=== PATIENT | male | born 1950 | race Asian ===

== ENCOUNTER 2020-01-18 12:03 | Outpatient (REF) | payer MEDICARE, OTHER, SELFPAY ==
[2020-01-18 13:16] LABS: Alanine Aminotransferase 19 U/L (0-40); Albumin Level 4.1 g/dL (3.5-5.0); Alkaline Phosphatase 75 U/L (39-117); Anion Gap 13 (12-20); Aspartate Amino Transferase 30 U/L (5-37); Bilirubin Total 0.8 mg/dL (0.0-1.0); Blood Urea Nitrogen 13 mg/dL (9-16); Carbon Dioxide 25 mmol/L (22-29); Chloride 106 mmol/L (96-108); Estimated Glomerular Filt Rate > 60; Glucose Random 127 mg/dL (60-115); Potassium 3.8 mmol/l (3.3-5.1); Sodium 140 mmol/L (135-145); Total Protein 6.9 g/dL (6.5-8.0)
== END 2020-01-18 12:04 | disposition home or self-care (01) ==
LOC: HO.LAB 12:03
PROVIDERS: PCP Internal Medicine; Visit Provider Internal Medicine
DX: N28.9 Disorder of kidney and ureter, unspecified (principal)
CPT/HCPCS: 80053

== ENCOUNTER 2020-03-25 07:12 | Outpatient (REF) | payer MEDICARE, OTHER, SELFPAY ==
[2020-03-25 08:01] LABS: MANUAL DIFF FLAG NO
[2020-03-25 08:03] LABS: Basophils Percent Auto 0.4 % (0-2); Eosinophils Absolute Auto 0.3 X10*3/uL (0.0-0.4); Eosinophils Percent Auto 4.9 % (0-4); Hematocrit 44.7 % (42-52); Hemoglobin 14.9 g/dl (14.0-18.0); Imm Gran Abs Auto 0.02 X10*3/uL (0.00-0.03); Imm Gran Pct Auto 0.3 % (0.0-0.4); Lymphocytes Absolute Auto 2.2 X10*3/uL (1.2-4.9); Lymphocytes Percent Auto 31.7 % (20-40); Mean Corpuscular HGB Conc 33.3 g/dl (31.0-36.0); Mean Corpuscular Hemoglobin 28.6 pg (27.0-33.0); Mean Corpuscular Volume 85.8 fL (80-98); Mean Platelet Volume 9.7 fL (9.4-12.4); Monocytes Absolute Auto 0.5 X10*3/uL (0.1-1.2); Monocytes Percent Auto 7.1 % (2-11); Neutrophils Absolute Auto 3.8 X10*3/uL (2.0-8.3); Neutrophils Percent Auto 55.6 % (45-73); Platelet Count 297 X10*3/uL (160-400); Red Blood Count 5.21 X10*6/uL (4.60-5.80); Red Cell Distribution Width 12.9 % (11.0-16.0); White Blood Count 6.8 X10*3/uL (4.8-10.8)
[2020-03-25 08:26] LABS: Alanine Aminotransferase 18 U/L (0-40); Albumin Level 4.2 g/dL (3.5-5.0); Alkaline Phosphatase 70 U/L (39-117); Anion Gap 14 (12-20); Aspartate Amino Transferase 25 U/L (5-37); Bilirubin Total 0.5 mg/dL (0.0-1.0); Blood Urea Nitrogen 11 mg/dL (9-16); Calcium 9.6 mg/dL (8.4-10.2); Carbon Dioxide 25 mmol/L (22-29); Chloride 108 mmol/L (96-108); Cholesterol 188 mg/dL; Estimated Glomerular Filt Rate > 60; Glucose Fasting 100 mg/dL (60-99); HDL Cholesterol 51 mg/dL; LDL Cholesterol Calculated 107 mg/dl; Potassium 4.3 mmol/l (3.3-5.1); Sodium 143 mmol/L (135-145); Total Protein 6.9 g/dL (6.5-8.0); Triglycerides 153 mg/dL
== END 2020-03-25 07:13 | disposition home or self-care (01) ==
LOC: HO.LAB 07:12
PROVIDERS: PCP Internal Medicine; Visit Provider Internal Medicine
DX: I10 Essential (primary) hypertension (principal); N28.9 Disorder of kidney and ureter, unspecified; E78.5 Hyperlipidemia, unspecified; K21.9 Gastro-esophageal reflux disease without esophagitis; E55.9 Vitamin D deficiency, unspecified
CPT/HCPCS: 36415; 80053; 80061; 82306; 85025

== ENCOUNTER 2020-06-01 12:06 | Outpatient (REF) | payer MEDICARE, SELFPAY ==
[2020-06-01 13:04] LABS: MANUAL DIFF FLAG NO
[2020-06-01 13:09] LABS: Basophils Percent Auto 0.4 % (0-2); Eosinophils Absolute Auto 0.4 X10*3/uL (0.0-0.4); Eosinophils Percent Auto 4.9 % (0-4); Hematocrit 44.3 % (42-52); Hemoglobin 14.8 g/dl (14.0-18.0); Imm Gran Abs Auto 0.03 X10*3/uL (0.00-0.03); Imm Gran Pct Auto 0.4 % (0.0-0.4); Lymphocytes Absolute Auto 2.1 X10*3/uL (1.2-4.9); Lymphocytes Percent Auto 29.4 % (20-40); Mean Corpuscular HGB Conc 33.4 g/dl (31.0-36.0); Mean Corpuscular Hemoglobin 28.7 pg (27.0-33.0); Mean Platelet Volume 9.9 fL (9.4-12.4); Monocytes Absolute Auto 0.5 X10*3/uL (0.1-1.2); Monocytes Percent Auto 6.6 % (2-11); Neutrophils Absolute Auto 4.1 X10*3/uL (2.0-8.3); Neutrophils Percent Auto 58.3 % (45-73); Platelet Count 280 X10*3/uL (160-400); Red Blood Count 5.15 X10*6/uL (4.60-5.80); Red Cell Distribution Width 12.2 % (11.0-16.0); White Blood Count 7.1 X10*3/uL (4.8-10.8)
[2020-06-01 13:34] LABS: Alanine Aminotransferase 20 U/L (0-40); Albumin Level 3.9 g/dL (3.5-5.0); Alkaline Phosphatase 79 U/L (39-117); Anion Gap 12 (12-20); Aspartate Amino Transferase 28 U/L (5-37); Bilirubin Total 0.7 mg/dL (0.0-1.0); Blood Urea Nitrogen 14 mg/dL (9-16); Calcium 8.5 mg/dL (8.4-10.2); Carbon Dioxide 25 mmol/L (22-29); Chloride 107 mmol/L (96-108); Cholesterol 161 mg/dL; Estimated Glomerular Filt Rate > 60; Glucose Fasting 144 mg/dL (60-99); HDL Cholesterol 47 mg/dL; LDL Cholesterol Calculated 68 mg/dl; Potassium 3.9 mmol/L (3.3-5.1); Sodium 140 mmol/L (135-145); Total Protein 6.5 g/dL (6.5-8.0); Triglycerides 232 mg/dL
[2020-06-01 13:53] LABS: PSA,Total (Free>4and<10) 1.55 ng/mL (0.00-4.00)
== END 2020-06-01 12:07 | disposition home or self-care (01) ==
LOC: HO.LAB 12:06
PROVIDERS: Nurse Practitioner Family; PCP Internal Medicine; Visit Provider Urology
DX: Z00.00 Encounter for general adult medical examination without abnormal findings (principal); N40.1 Benign prostatic hyperplasia with lower urinary tract symptoms; Z12.5 Encounter for screening for malignant neoplasm of prostate
CPT/HCPCS: 36415; 80053; 80061; 84153; 85025

== ENCOUNTER → 2020-06-08 12:50 | Outpatient (BNVA) | payer MEDICARE, OTHER, SELFPAY | PROVIDERS: Visit Provider Urology | DX: Z13.89 Encounter for screening for other disorder (principal) | CPT/HCPCS: 99212 ==

== ENCOUNTER 2020-07-14 07:00 | Outpatient (REF) | payer MEDICARE, OTHER, SELFPAY ==
[2020-07-14 08:03] LABS: MANUAL DIFF FLAG NO
[2020-07-14 08:23] LABS: Basophils Percent Auto 0.5 % (0-2); Eosinophils Absolute Auto 0.4 X10*3/uL (0.0-0.4); Eosinophils Percent Auto 5.2 % (0-4); Hematocrit 48.8 % (42-52); Imm Gran Abs Auto 0.03 X10*3/uL (0.00-0.03); Imm Gran Pct Auto 0.4 % (0.0-0.4); Lymphocytes Absolute Auto 2.6 X10*3/uL (1.2-4.9); Mean Corpuscular HGB Conc 32.8 g/dl (31.0-36.0); Mean Corpuscular Hemoglobin 28.3 pg (27.0-33.0); Mean Corpuscular Volume 86.2 fL (80-98); Mean Platelet Volume 9.9 fL (9.4-12.4); Monocytes Absolute Auto 0.5 X10*3/uL (0.1-1.2); Monocytes Percent Auto 6.8 % (2-11); Neutrophils Percent Auto 53.1 % (45-73); Platelet Count 301 X10*3/uL (160-400); Red Blood Count 5.66 X10*6/uL (4.60-5.80); Red Cell Distribution Width 12.6 % (11.0-16.0); White Blood Count 7.5 X10*3/uL (4.8-10.8)
[2020-07-14 08:34] LABS: Alanine Aminotransferase 25 U/L (0-40); Albumin Level 4.4 g/dL (3.5-5.0); Alkaline Phosphatase 99 U/L (39-117); Anion Gap 15 (12-20); Aspartate Amino Transferase 34 U/L (5-37); Bilirubin Total 0.9 mg/dL (0.0-1.0); Blood Urea Nitrogen 13 mg/dL (9-16); Calcium 10.2 mg/dL (8.4-10.2); Carbon Dioxide 24 mmol/L (22-29); Chloride 104 mmol/L (96-108); Cholesterol 190 mg/dL; Estimated Glomerular Filt Rate > 60; Glucose Fasting 104 mg/dL (60-99); HDL Cholesterol 54 mg/dL; LDL Cholesterol Calculated 96 mg/dl; Potassium 4.4 mmol/L (3.3-5.1); Sodium 139 mmol/L (135-145); Total Protein 7.4 g/dL (6.5-8.0); Triglycerides 204 mg/dL
[2020-07-14 08:43] LABS: Glucose Urine UA NEG (NEG); Leukocyte Esterase Urine NEG (NEG); Nitrite Urine NEG (NEG); PH 5.5 (5.0-8.0); Specific Gravity - Urine 1.025 (1.005-1.025); Urine Blood NEG (NEG); Urine Ketones NEG (NEG); Urine Protein NEG (NEG-TRACE)
[2020-07-14 08:44] LABS: Appearance Urine CLEAR; Color Urine YELLOW
[2020-07-14 08:54] LABS: Prostate Specific Antigen Scr 1.21 ng/mL (<0.05-4.0)
[2020-07-14 08:55] LABS: Vitamin D 25-OH Total 33.4 ng/mL (>30)
== END 2020-07-14 07:01 | disposition home or self-care (01) ==
LOC: HO.LAB 07:00
PROVIDERS: Nurse Practitioner Family; PCP Internal Medicine; Visit Provider Internal Medicine
DX: Z00.00 Encounter for general adult medical examination without abnormal findings (principal); Z12.5 Encounter for screening for malignant neoplasm of prostate; L29.9 Pruritus, unspecified; K21.9 Gastro-esophageal reflux disease without esophagitis; E55.9 Vitamin D deficiency, unspecified; E78.2 Mixed hyperlipidemia; N28.9 Disorder of kidney and ureter, unspecified; I10 Essential (primary) hypertension
CPT/HCPCS: 36415; 80053; 80061; 81003; 82306; 84153; 85025

== ENCOUNTER 2020-11-14 06:57 | Outpatient (REF) | payer MEDICARE, OTHER, SELFPAY ==
[2020-11-14 07:43] LABS: MANUAL DIFF FLAG NO
[2020-11-14 07:50] LABS: Basophils Percent Auto 0.4 % (0-2); Eosinophils Absolute Auto 0.4 X10*3/uL (0.0-0.4); Eosinophils Percent Auto 5.6 % (0-4); Hematocrit 47.8 % (42-52); Imm Gran Abs Auto 0.02 X10*3/uL (0.00-0.03); Imm Gran Pct Auto 0.3 % (0.0-0.4); Lymphocytes Absolute Auto 2.6 X10*3/uL (1.2-4.9); Lymphocytes Percent Auto 34.1 % (20-40); Mean Corpuscular HGB Conc 33.5 g/dl (31.0-36.0); Mean Corpuscular Hemoglobin 27.8 pg (27.0-33.0); Mean Corpuscular Volume 83.1 fL (80-98); Mean Platelet Volume 9.7 fL (9.4-12.4); Monocytes Absolute Auto 0.5 X10*3/uL (0.1-1.2); Monocytes Percent Auto 6.8 % (2-11); Neutrophils Percent Auto 52.8 % (45-73); Platelet Count 304 X10*3/uL (160-400); Red Blood Count 5.75 X10*6/uL (4.60-5.80); Red Cell Distribution Width 13.3 % (11.0-16.0); White Blood Count 7.5 X10*3/uL (4.8-10.8)
[2020-11-14 08:23] LABS: Alanine Aminotransferase 33 U/L (0-40); Albumin Level 4.2 g/dL (3.5-5.0); Alkaline Phosphatase 103 U/L (39-117); Anion Gap 15 (12-20); Aspartate Amino Transferase 43 U/L (5-37); Bilirubin Total 0.7 mg/dL (0.0-1.0); Blood Urea Nitrogen 13 mg/dL (9-16); Calcium 10.2 mg/dL (8.4-10.2); Carbon Dioxide 22 mmol/L (22-29); Chloride 108 mmol/L (96-108); Cholesterol 158 mg/dL; Estimated Glomerular Filt Rate > 60; Glucose Fasting 104 mg/dL (60-99); HDL Cholesterol 42 mg/dL; LDL Cholesterol Calculated 78 mg/dl; Potassium 4.3 mmol/L (3.3-5.1); Sodium 141 mmol/L (135-145); Total Protein 7.1 g/dL (6.5-8.0); Triglycerides 190 mg/dL
[2020-11-14 08:37] LABS: TSH reflex Free T4 1.89 uIU/mL (0.32-4.0)
[2020-11-14 08:48] LABS: Glucose Urine UA NEG (NEG); Leukocyte Esterase Urine NEG (NEG); Nitrite Urine NEG (NEG); PH 5.5 (5.0-8.0); Specific Gravity - Urine >= 1.030 (1.005-1.025); Urine Blood NEG (NEG); Urine Ketones NEG (NEG); Urine Protein NEG (NEG-TRACE)
[2020-11-14 08:50] LABS: Appearance Urine CLEAR; Color Urine YELLOW
== END 2020-11-14 06:58 | disposition home or self-care (01) ==
LOC: HO.LAB 06:57
PROVIDERS: PCP Internal Medicine; Visit Provider Internal Medicine
DX: E78.2 Mixed hyperlipidemia (principal); I10 Essential (primary) hypertension; K21.9 Gastro-esophageal reflux disease without esophagitis; E78.00 Pure hypercholesterolemia, unspecified
CPT/HCPCS: 36415; 80053; 80061; 81003; 84443; 85025

== ENCOUNTER 2020-12-04 06:05 | Day surgery (SDC) | payer MEDICARE, OTHER, SELFPAY ==
[2020-11-29 15:13] VITALS: BMI 24.6
--- NOTE | 2020-12-01 09:23 | HO.ANESPROP2 ---
Documented by User: Cindy Cm NP 12/01/20 09:24 HPI - Anesthesia Eval Consult details Narrative: 70yo M for Colonoscopy PMFSH Active Problems Active Problems: All Active Problems (Updated 11/29/20 @ 15:16 by Beryl Fox, ALIZA) Bilateral nephrolithiasis (Acute) Screening for colon cancer (Acute) Annual physical exam (Acute) Recurrent cold sores (Acute) Renal insufficiency (Acute) Osteoarthritis of cervical spine (Acute) Primary osteoarthritis of right shoulder (Acute) Generalized pruritus (Acute) GERD without esophagitis (Acute) Vitamin D deficiency (Acute) Mixed hyperlipidemia (Acute) Benign essential hypertension (Acute) Past Medical History Medical History Annual physical exam Benign essential hypertension COVID-19 vaccine series completed Generalized pruritus GERD without esophagitis Mixed hyperlipidemia Osteoarthritis of cervical spine Primary osteoarthritis of right shoulder Recurrent cold sores Renal insufficiency Screening for colon cancer Vitamin D deficiency Family History Family History Father Hypertension Mother Hypertension CVD (cardiovascular disease) Brother No problems noted. Sister No problems noted. Son No problems noted. Surgical History Surgical History History of colonoscopy Hx of cystoscopy Hx of lithotripsy Social History Social History Alcohol intake: current Alcohol intake frequency: does not drink Patient Tobacco Use Status: Tobacco use Unknown Use of substances other than those prescribed or required for medical reasons: No Advance Directives Information Provided: No Meds Allergies Allergy/AdvReac Type Severity Reaction Status Date / Time prochlorperazine Allergy Intermediate loss of Verified 11/29/20 15:08 [From Compazine] control of tongue muscle (tongue twisted) Home Medications Medication Instructions Recorded Confirmed Last Taken Type atorvastatin 10 mg tablet 10 mg PO DAILY 04/04/20 11/29/20 Unknown History cholecalciferol (vitamin D3) 1,250 1,250 mcg PO QWEEK 04/04/20 11/29/20 Unknown History mcg (50,000 unit) capsule cyclobenzaprine 5 mg tablet 5 mg PO BID PRN tab 04/04/20 11/29/20 Unknown History tramadol 50 mg tablet 50 mg PO TID PRN 04/04/20 11/29/20 Unknown History Exam Exam Date and Time: December 01, 2020922 Height,Weight and Vital Signs: Height 5 ft 5 in Weight 67.132 kg Pertinent Lab Results Pertinent Lab Results: Laboratory Tests 11/14/20 11/14/20 07:10 07:10 WBC 7.5 Hgb 16.0 Hct 47.8 Plt Count 304 Sodium 141 Potassium 4.3 Chloride 108 Carbon Dioxide 22 BUN 13 Creatinine 1.20 Assessment and Plan Assessment Anesthesia Assessment: Chart Reviewed Documented by User: Griselda Bauer MD 12/04/20 07:07 [facility] Past Medical History Medical History Annual physical exam Benign essential hypertension COVID-19 vaccine series completed Generalized pruritus GERD without esophagitis Mixed hyperlipidemia Osteoarthritis of cervical spine Primary osteoarthritis of right shoulder Recurrent cold sores Renal insufficiency Screening for colon cancer Vitamin D deficiency Family History Family History Father Hypertension Mother Hypertension CVD (cardiovascular disease) Brother No problems noted. Sister No problems noted. Son No problems noted. Family history of problems with anesthesia: No Surgical History Surgical History History of colonoscopy Hx of cystoscopy Hx of lithotripsy History of Problems with Anesthesia: No Social History Social History Alcohol intake: current Alcohol intake frequency: does not drink Patient Tobacco Use Status: Tobacco use Unknown Use of substances other than those prescribed or required for medical reasons: No Advance Directives Information Provided: No Meds Allergies Allergy/AdvReac Type Severity Reaction Status Date / Time prochlorperazine Allergy Intermediate loss of Verified 11/29/20 15:08 [From Compazine] control of tongue muscle (tongue twisted) Home Medications Medication Instructions Recorded Confirmed Last Taken Type atorvastatin 10 mg tablet 10 mg PO DAILY 04/04/20 11/29/20 Unknown History cholecalciferol (vitamin D3) 1,250 1,250 mcg PO QWEEK 04/04/20 11/29/20 Unknown History mcg (50,000 unit) capsule cyclobenzaprine 5 mg tablet 5 mg PO BID PRN tab 04/04/20 11/29/20 Unknown History tramadol 50 mg tablet 50 mg PO TID PRN 04/04/20 11/29/20 Unknown History Exam Airway Mallampati Class: II TM Dist: >3cm Neck ROM: Full Assessment and Plan Assessment Anesthesia Assessment: Anesthesia Plan Discussed Final Anesthetic Review Family History of Problems with Anesthesia: No History of Problems with Anesthesia: No NPO: Yes ASA Class: II Final Preanesthetic Review: No Changes in Pt Med Stat, Meds/Allgs Chart Reviewed, Consent Obtained/Reviewed and Anes Risks/Benef Reviewed Patient Risk: Low Procedure Risk: Low Assessment/Block/Sedation in SS: Assess/Block/Sedation-SS Anesthetic Plan Anesthetic Plan: MAC: Disposition: Standard PACU
[2020-12-04 06:37] VITALS: BP 151/81; PULSE 64; RESP 16; TEMP 37.1; O2SAT 98
[2020-12-04] MEDS: Lactated Ringers 1,000 ML 100 ML IVCONT (06:42)
[2020-12-04 08:22] VITALS: BP 92/41; PULSE 62; RESP 12; TEMP 36.8; O2SAT 96
--- NOTE | 2020-12-04 08:22 | PM.OP ---
Brief Operative Note Date of Service: 12/04/20 Pre-op diagnosis: Screening Post-op diagnosis: other (Colon polyp) Procedure: Colonoscopy to the cecum and TI with snare polypectomy Surgeon: Jayden Hutchison Anesthesia: MAC Was an Weigh And Charge Worker used for this Procedure?: No Estimated blood loss (mL): 0 Pathology: other (A. Polyp at 40cm) Condition: stable Disposition: PACU
[2020-12-04 08:37] VITALS: BP 109/69; PULSE 63; RESP 14; O2SAT 96
--- NOTE | 2020-12-04 08:40 | OP_ITS ---
SURGEON: Jayden Hutchison MD INDICATIONS: The patient presents for evaluation of colorectal cancer screening. Full consent has been obtained from him for this, including risks of bleeding and perforation. PREOPERATIVE DIAGNOSIS: Colorectal cancer screening. POSTOPERATIVE DIAGNOSIS: PROCEDURE PERFORMED: Colonoscopy to cecum and terminal ileum with snare polypectomy. ESTIMATED BLOOD LOSS: COMPLICATIONS: ANESTHESIA: Monitored anesthesia care. ASSISTANTS: SPECIMENS: POSTOPERATIVE DIAGNOSES: Colorectal cancer screening, colon polyp, diverticulosis and internal hemorrhoids. DESCRIPTION OF PROCEDURE: The patient was placed in the left lateral decubitus position. The digital rectal exam revealed no abnormalities. The Olympus video pediatric colonoscope was entered into the rectum and advanced easily to the cecum. Once in the cecum, I did identify cecal pouch with appendiceal orifice. There were several diverticula in the cecal pouch. The terminal ileum was cannulated and appeared normal. The scope was withdrawn back in the colon. The ileocecal valve was somewhat large and lipomatous. It was quite soft when probed with a biopsy forceps and the overlying mucosa was normal. The scope was then slowly withdrawn assessing all mucosal surfaces carefully. Preparation was excellent. There was scattered diverticula in the ascending colon and a moderate amount of diverticulosis in the sigmoid colon. At 40 cm, was an approximately 10 mm slightly raised grossly adenomatous polyp, which was snared and recovered by suction. The polypectomy site appeared clean, without any sign of residual polyp nor bleeding. I did not visualize any other polyps, colitis, nor angiodysplasia. In the rectum, scope was retroflexed visualizing internal hemorrhoids, but no other pathology. The rectal mucosa appeared normal. The scope was straightened out and withdrawn from the patient. He tolerated the procedure well and was returned to the recovery area in stable condition. IMPRESSION: 1. Colon polyp, status post snare polypectomy. 2. Diverticulosis. 3. Lipomatous ileocecal valve. 4. Internal hemorrhoids. PLAN: The results of the pathology will be checked. Assuming this to be a tubular adenoma, I would recommend a followup colonoscopy in 5 years. He was advised not to use any aspirin, NSAIDs, nor fish oil for 1 week. He would otherwise see me on a p.r.n. basis. MD SYLVIA Mendoza/RAMY / [phone]
[2020-12-04 08:52] VITALS: BP 133/83; PULSE 66; RESP 18; TEMP 36.8; O2SAT 98
== END 2020-12-04 09:37 | disposition home or self-care (01) ==
PROVIDERS: PCP Internal Medicine; Visit Provider Internal Medicine
PROC: 0DJD8ZZ Inspection of Lower Intestinal Tract, Via Natural or Artificial Opening Endoscopic (ICD-10-PCS; CPT 45378; principal; 2020-12-04 07:30)
DX: Z12.11 Encounter for screening for malignant neoplasm of colon (principal); D12.5 Benign neoplasm of sigmoid colon; K57.30 Diverticulosis of large intestine without perforation or abscess without bleeding; K64.8 Other hemorrhoids; K21.9 Gastro-esophageal reflux disease without esophagitis; I10 Essential (primary) hypertension; Z87.11 Personal history of peptic ulcer disease; Z79.899 Other long term (current) drug therapy
CPT/HCPCS: 45385; 88305

== ENCOUNTER 2021-05-11 07:29 | Outpatient (REF) | payer MEDICARE, OTHER, SELFPAY ==
[2021-05-11 07:50] LABS: MANUAL DIFF FLAG NO
[2021-05-11 08:04] LABS: Basophils Absolute Auto 0.1 X10*3/uL (0.0-0.2); Basophils Percent Auto 0.7 % (0-2); Eosinophils Absolute Auto 0.5 X10*3/uL (0.0-0.4); Eosinophils Percent Auto 7.2 % (0-4); Hematocrit 46.3 % (42.0-52.0); Hemoglobin 15.3 g/dl (14.0-18.0); Imm Gran Abs Auto 0.03 X10*3/uL (0.00-0.03); Imm Gran Pct Auto 0.4 % (0.0-0.4); Lymphocytes Absolute Auto 2.9 X10*3/uL (1.2-4.9); Lymphocytes Percent Auto 40.5 % (20-40); Mean Corpuscular Hemoglobin 28.3 pg (27.0-33.0); Mean Corpuscular Volume 85.7 fL (80.0-98.0); Mean Platelet Volume 9.6 fL (9.4-12.4); Monocytes Absolute Auto 0.4 X10*3/uL (0.1-1.2); Monocytes Percent Auto 6.2 % (2-11); Neutrophils Absolute Auto 3.2 x10*3/uL (2.0-8.3); Platelet Count 276 X10*3/uL (160-400); Red Cell Distribution Width 12.8 % (11.0-16.0); White Blood Count 7.1 X10*3/uL (4.8-10.8)
[2021-05-11 08:24] LABS: Appearance Urine CLEAR; Color Urine YELLOW; Glucose Urine UA NEG (NEG); Leukocyte Esterase Urine NEG (NEG); Nitrite Urine NEG (NEG); PH 5.5 (5.0-8.0); Specific Gravity - Urine 1.025 (1.005-1.025); Urine Blood NEG (NEG); Urine Ketones NEG (NEG); Urine Protein NEG (NEG-TRACE)
[2021-05-11 08:31] LABS: Alanine Aminotransferase 19 U/L (0-40); Albumin Level 4.1 g/dL (3.5-5.0); Alkaline Phosphatase 75 U/L (39-117); Anion Gap 12 (12-20); Aspartate Amino Transferase 28 U/L (5-37); Bilirubin Total 0.6 mg/dL (0.0-1.0); Blood Urea Nitrogen 13 mg/dL (9-16); Calcium 9.9 mg/dL (8.4-10.2); Carbon Dioxide 26 mmol/L (22-29); Chloride 106 mmol/L (96-108); Cholesterol 207 mg/dL; Estimated Glomerular Filt Rate > 60; Glucose Fasting 104 mg/dL (60-99); HDL Cholesterol 52 mg/dL; LDL Cholesterol Calculated 125 mg/dl; Potassium 4.4 mmol/L (3.3-5.1); Sodium 140 mmol/L (135-145); Total Protein 6.9 g/dL (6.5-8.0); Triglycerides 152 mg/dL
[2021-05-11 08:53] LABS: TSH reflex Free T4 2.28 uIU/mL (0.32-4.0); Vitamin D 25-OH Total 34.1 ng/mL (>30)
== END 2021-05-11 07:30 | disposition home or self-care (01) ==
LOC: HO.LAB 07:29
PROVIDERS: PCP Internal Medicine; Visit Provider Internal Medicine
DX: I10 Essential (primary) hypertension (principal); E78.00 Pure hypercholesterolemia, unspecified; E55.9 Vitamin D deficiency, unspecified
CPT/HCPCS: 36415; 80053; 80061; 81003; 82306; 84443; 85025

== ENCOUNTER 2021-05-17 10:43 | Outpatient (REF) | payer MEDICARE, OTHER, SELFPAY ==
--- NOTE | ~2021-05-17 | XR_ITS ---
EXAMINATION: XR SHOULDER, LEFT CLINICAL INFORMATION: Left shoulder pain. COMPARISON: None TECHNIQUE: AP external rotation, Grashey, scapular Y, and axillary views of the left shoulder. FINDINGS: Mild left acromioclavicular degenerative joint changes are seen. The left glenohumeral joint is unremarkable. There is no acute fracture or dislocation. The soft tissues are unremarkable. XR/XR shoulder LT min 2V IMPRESSION: Mild left acromioclavicular degenerative joint changes. No acute abnormality.
== END 2021-05-17 10:44 | disposition home or self-care (01) ==
LOC: HO.XRAY 10:43
PROVIDERS: PCP Internal Medicine; Visit Provider Internal Medicine
DX: M25.512 Pain in left shoulder (principal)
CPT/HCPCS: 73030

== ENCOUNTER 2021-05-28 14:30 | Outpatient (REF) | payer MEDICARE, OTHER, SELFPAY ==
--- NOTE | ~2021-05-28 | US_ITS ---
EXAMINATION: US RETROPERITONEAL LIMITED (RENAL ONLY) CLINICAL INFORMATION: Calculus of kidney. COMPARISON: US retroperitoneal limited (aorta) 06/08/2019 and 10/22/2018 TECHNIQUE: Real-time imaging of the kidneys. FINDINGS: RIGHT KIDNEY: 10.7 x 4.2 x 5.3 cm (SAG x AP x TRV). The kidney is normal in size, contour, and echogenicity. Renal cortical thickness is normal. No focal parenchymal lesions or hydronephrosis. There is a 0.4 cm nonobstructing shadowing calculus in the lower pole. There is a 0.3 cm shadowing mid pole nonobstructing calculus. There is a 0.3 cm mid pole nonobstructing calculus. These calculi were not apparent on the most recent previous study. LEFT KIDNEY: 11.0 x 5.9 x 5.8 cm (SAG x AP x TRV). The kidney is normal in size, contour, and echogenicity. Renal cortical thickness is normal. No hydronephrosis. There is a 0.6 cm shadowing calculus in the mid kidney. There is a 0.3 cm nonobstructing calculus in the mid kidney. Medial to the 0.6 cm calculus there may be a dilated infundibulum. A cyst was not present in this area previously. The 0.6 cm calculus may be causing focal obstruction. US/US renal BI IMPRESSION: 1. There are multiple right renal calculi identified without evidence of hydronephrosis. 2. There is a 0.6 cm mid pole left renal calculus. There may be focal obstruction of the adjacent infundibulum.
== END 2021-05-28 14:31 | disposition home or self-care (01) ==
LOC: HO.US 14:30
PROVIDERS: PCP Internal Medicine; Visit Provider Urology
DX: N20.0 Calculus of kidney (principal)
CPT/HCPCS: 76775

== ENCOUNTER → 2021-06-12 13:29 | Outpatient (BNVA) | payer MEDICARE, OTHER, SELFPAY | PROVIDERS: PCP Internal Medicine; Visit Provider Urology | DX: N20.0 Calculus of kidney (principal) | CPT/HCPCS: 99212 ==

== ENCOUNTER 2021-06-14 07:30 | Outpatient (REF) | payer MEDICARE, OTHER, SELFPAY ==
[2021-06-14 08:06] LABS: MANUAL DIFF FLAG NO
[2021-06-14 08:37] LABS: Basophils Absolute Auto 0.1 X10*3/uL (0.0-0.2); Basophils Percent Auto 0.5 % (0-2); Eosinophils Absolute Auto 0.5 X10*3/uL (0.0-0.4); Eosinophils Percent Auto 3.8 % (0-4); Hematocrit 46.7 % (42.0-52.0); Hemoglobin 15.5 g/dl (14.0-18.0); Imm Gran Abs Auto 0.06 X10*3/uL (0.00-0.03); Imm Gran Pct Auto 0.5 % (0.0-0.4); Lymphocytes Absolute Auto 2.1 X10*3/uL (1.2-4.9); Lymphocytes Percent Auto 17.2 % (20-40); Mean Corpuscular HGB Conc 33.2 g/dl (31.0-36.0); Mean Corpuscular Hemoglobin 28.4 pg (27.0-33.0); Mean Corpuscular Volume 85.5 fL (80.0-98.0); Mean Platelet Volume 9.8 fL (9.4-12.4); Monocytes Absolute Auto 0.9 X10*3/uL (0.1-1.2); Monocytes Percent Auto 7.5 % (2-11); Neutrophils Absolute Auto 8.5 x10*3/uL (2.0-8.3); Neutrophils Percent Auto 70.5 % (45-73); Platelet Count 275 X10*3/uL (160-400); Red Blood Count 5.46 X10*6/uL (4.60-5.80); Red Cell Distribution Width 12.6 % (11.0-16.0)
[2021-06-14 08:48] LABS: Appearance Urine CLEAR; Color Urine YELLOW; Glucose Urine UA NEG (NEG); Leukocyte Esterase Urine NEG (NEG); Nitrite Urine NEG (NEG); Urine Blood NEG (NEG); Urine Ketones NEG (NEG); Urine Protein NEG (NEG-TRACE)
[2021-06-14 09:08] LABS: Alanine Aminotransferase 32 U/L (0-40); Albumin Level 4.2 g/dL (3.5-5.0); Alkaline Phosphatase 90 U/L (39-117); Anion Gap 16 (12-20); Aspartate Amino Transferase 54 U/L (5-37); Bilirubin Total 1.2 mg/dL (0.0-1.0); Blood Urea Nitrogen 13 mg/dL (9-16); Carbon Dioxide 24 mmol/L (22-29); Chloride 104 mmol/L (96-108); Cholesterol 181 mg/dL; Estimated Average Glucose 126 mg/dL; Estimated Glomerular Filt Rate > 60; Glucose Fasting 100 mg/dL (60-99); HDL Cholesterol 50 mg/dL; LDL Cholesterol Calculated 98 mg/dl; Potassium 4.5 mmol/L (3.3-5.1); Sodium 139 mmol/L (135-145); Total Protein 7.2 g/dL (6.5-8.0); Triglycerides 169 mg/dL
[2021-06-14 09:33] LABS: TSH reflex Free T4 1.64 uIU/mL (0.32-4.0)
[2021-06-14 14:31] LABS: Vitamin D 25-OH Total 32.7 ng/mL (>30)
== END 2021-06-14 07:31 | disposition home or self-care (01) ==
LOC: HO.LAB 07:30
PROVIDERS: PCP Internal Medicine; Visit Provider Internal Medicine
DX: I10 Essential (primary) hypertension (principal); E78.00 Pure hypercholesterolemia, unspecified; R73.01 Impaired fasting glucose; N40.0 Benign prostatic hyperplasia without lower urinary tract symptoms; E55.9 Vitamin D deficiency, unspecified; Z12.5 Encounter for screening for malignant neoplasm of prostate
CPT/HCPCS: 36415; 80053; 80061; 81003; 82306; 83036; 84153; 84443; 85025

== ENCOUNTER → 2021-08-06 14:41 | Outpatient (BNVA) | payer MEDICARE, SELFPAY | PROVIDERS: PCP Internal Medicine; Visit Provider Physician Assistant | DX: M19.012 Primary osteoarthritis, left shoulder (principal) | CPT/HCPCS: 20610; 99212; J1040 ==

== ENCOUNTER 2021-09-04 06:47 | Outpatient (REF) | payer MEDICARE, OTHER, SELFPAY ==
[2021-09-04 07:02] LABS: MANUAL DIFF FLAG NO
[2021-09-04 07:26] LABS: Basophils Percent Auto 0.4 % (0-2); Eosinophils Absolute Auto 0.3 X10*3/uL (0.0-0.4); Eosinophils Percent Auto 4.9 % (0-4); Hematocrit 46.5 % (42.0-52.0); Hemoglobin 15.2 g/dl (14.0-18.0); Imm Gran Abs Auto 0.04 X10*3/uL (0.00-0.03); Imm Gran Pct Auto 0.6 % (0.0-0.4); Lymphocytes Absolute Auto 2.7 X10*3/uL (1.2-4.9); Lymphocytes Percent Auto 38.2 % (20-40); Mean Corpuscular HGB Conc 32.7 g/dl (31.0-36.0); Mean Corpuscular Hemoglobin 27.9 pg (27.0-33.0); Mean Corpuscular Volume 85.5 fL (80.0-98.0); Mean Platelet Volume 9.7 fL (9.4-12.4); Monocytes Absolute Auto 0.5 X10*3/uL (0.1-1.2); Monocytes Percent Auto 6.7 % (2-11); Neutrophils Absolute Auto 3.4 x10*3/uL (2.0-8.3); Neutrophils Percent Auto 49.2 % (45-73); Platelet Count 257 X10*3/uL (160-400); Red Blood Count 5.44 X10*6/uL (4.60-5.80); Red Cell Distribution Width 13.3 % (11.0-16.0)
[2021-09-04 08:06] LABS: Alanine Aminotransferase 30 U/L (0-40); Albumin Level 4.1 g/dL (3.5-5.0); Alkaline Phosphatase 94 U/L (39-117); Anion Gap 12 (12-20); Aspartate Amino Transferase 41 U/L (5-37); Bilirubin Total 0.9 mg/dL (0.0-1.0); Blood Urea Nitrogen 12 mg/dL (9-16); Calcium 9.7 mg/dL (8.4-10.2); Carbon Dioxide 27 mmol/L (22-29); Chloride 103 mmol/L (96-108); Cholesterol 183 mg/dL; Estimated Glomerular Filt Rate > 60; Glucose Fasting 101 mg/dL (60-99); HDL Cholesterol 48 mg/dL; LDL Cholesterol Calculated 109 mg/dl; Potassium 4.2 mmol/L (3.3-5.1); Sodium 138 mmol/L (135-145); Total Protein 6.8 g/dL (6.5-8.0); Triglycerides 134 mg/dL
[2021-09-04 08:33] LABS: Appearance Urine CLEAR; Color Urine YELLOW; Glucose Urine UA NEG (NEG); Leukocyte Esterase Urine NEG (NEG); Nitrite Urine NEG (NEG); UACC Culture Trigger NO; Urine Blood TRACE (NEG); Urine Ketones NEG (NEG); Urine Protein NEG (NEG-TRACE)
[2021-09-04 08:41] LABS: TSH reflex Free T4 2.27 uIU/mL (0.32-4.0); Vitamin D 25-OH Total 29.6 ng/mL (>30)
[2021-09-04 08:58] LABS: WBC Urine 0-2 /HPF (0-4)
== END 2021-09-04 06:48 | disposition home or self-care (01) ==
LOC: HO.LAB 06:47
PROVIDERS: PCP Internal Medicine; Visit Provider Internal Medicine
DX: E78.00 Pure hypercholesterolemia, unspecified (principal); E55.9 Vitamin D deficiency, unspecified; I10 Essential (primary) hypertension
CPT/HCPCS: 36415; 80053; 80061; 81001; 82306; 84443; 85025

== ENCOUNTER 2021-10-26 08:30 | Outpatient (REF) | payer MEDICARE, OTHER, SELFPAY ==
[2021-10-26 10:34] LABS: Appearance Urine HAZY; Color Urine YELLOW; Glucose Urine UA NEG (NEG); Leukocyte Esterase Urine NEG (NEG); Nitrite Urine NEG (NEG); PH 5.5 (5.0-8.0); Specific Gravity - Urine >= 1.030 (1.005-1.025); Urine Blood NEG (NEG); Urine Ketones NEG (NEG); Urine Protein NEG (NEG-TRACE)
== END 2021-10-26 08:31 | disposition home or self-care (01) ==
LOC: HO.LAB 08:30
PROVIDERS: PCP Internal Medicine; Visit Provider Nurse Practitioner Family
DX: I10 Essential (primary) hypertension (principal)
CPT/HCPCS: 81003

== ENCOUNTER 2022-05-13 08:35 | Outpatient (REF) | payer MEDICARE, OTHER, SELFPAY ==
[2022-05-13 08:44] LABS: MANUAL DIFF FLAG NO
[2022-05-13 09:00] LABS: Basophils Absolute Auto 0.1 X10*3/uL (0.0-0.2); Basophils Percent Auto 0.7 % (0-2); Eosinophils Absolute Auto 0.5 X10*3/uL (0.0-0.4); Eosinophils Percent Auto 6.2 % (0-4); Hemoglobin 16.3 g/dl (14.0-18.0); Imm Gran Abs Auto 0.03 X10*3/uL (0.00-0.03); Imm Gran Pct Auto 0.4 % (0.0-0.4); Lymphocytes Absolute Auto 3.1 X10*3/uL (1.2-4.9); Lymphocytes Percent Auto 38.3 % (20-40); Mean Corpuscular HGB Conc 33.3 g/dl (31.0-36.0); Mean Corpuscular Hemoglobin 28.4 pg (27.0-33.0); Mean Corpuscular Volume 85.4 fL (80.0-98.0); Mean Platelet Volume 9.8 fL (9.4-12.4); Monocytes Absolute Auto 0.6 X10*3/uL (0.1-1.2); Monocytes Percent Auto 7.2 % (2-11); Neutrophils Absolute Auto 3.8 x10*3/uL (2.0-8.3); Neutrophils Percent Auto 47.2 % (45-73); Platelet Count 278 X10*3/uL (160-400); Red Blood Count 5.74 X10*6/uL (4.60-5.80); White Blood Count 8.1 X10*3/uL (4.8-10.8)
[2022-05-13 09:12] LABS: Estimated Average Glucose 137 mg/dL; Hemoglobin A1c % 6.4 %
[2022-05-13 09:13] LABS: Urine Cytology See Pathology rpt
[2022-05-13 09:17] LABS: Appearance Urine Clear; Color Urine Yellow; Glucose Urine UA Negative (Negative); Leukocyte Esterase Urine Negative (Negative); Nitrite Urine Negative (Negative); Specific Gravity - Urine 1.025 (1.005-1.025); Urine Blood Negative (Negative); Urine Ketones Negative (Negative); Urine Protein Negative (Neg-Trace)
[2022-05-13 09:40] LABS: Alanine Aminotransferase 30 U/L (0-40); Albumin Level 4.3 g/dL (3.5-5.0); Alkaline Phosphatase 113 U/L (39-117); Anion Gap 16 (12-20); Aspartate Amino Transferase 42 U/L (5-37); Blood Urea Nitrogen 12 mg/dL (9-16); Calcium 10.3 mg/dL (8.4-10.2); Carbon Dioxide 26 mmol/L (22-29); Chloride 102 mmol/L (96-108); Cholesterol 197 mg/dL; Estimated Glomerular Filt Rate > 60; Glucose Fasting 117 mg/dL (60-99); HDL Cholesterol 48 mg/dL; LDL Cholesterol Calculated 106 mg/dl; Potassium 4.3 mmol/L (3.3-5.1); Sodium 140 mmol/L (135-145); Total Protein 6.9 g/dL (6.5-8.0); Triglycerides 218 mg/dL
[2022-05-13 09:57] LABS: Vitamin D 25-OH Total 29.4 ng/mL (>30)
== END 2022-05-13 08:36 | disposition home or self-care (01) ==
LOC: HO.LAB 08:35
PROVIDERS: PCP Internal Medicine; Visit Provider Internal Medicine
DX: R73.01 Impaired fasting glucose (principal); R31.1 Benign essential microscopic hematuria; E55.9 Vitamin D deficiency, unspecified; R30.0 Dysuria; E78.00 Pure hypercholesterolemia, unspecified; I10 Essential (primary) hypertension
CPT/HCPCS: 36415; 80053; 80061; 81003; 82306; 83036; 84443; 85025; 88112

== ENCOUNTER 2022-05-23 12:37 | Outpatient (REF) | payer MEDICARE, OTHER, SELFPAY ==
--- NOTE | ~2022-05-23 | US_ITS ---
EXAMINATION: US RETROPERITONEAL LIMITED (RENAL ONLY) CLINICAL INFORMATION: Calculus of kidney. COMPARISON: Ultrasound retroperitoneal limited (renal only) 05/28/2021 and 06/08/2019. TECHNIQUE: Real-time imaging of the kidneys. FINDINGS: RIGHT KIDNEY: 11.3 x 4.4 x 4.5 cm (SAG x AP x TRV). The kidney is normal in size, contour, and echogenicity. Renal cortical thickness is normal. No calculi or focal parenchymal lesions. No hydronephrosis. LEFT KIDNEY: 11.2 x 5.6 x 4.9 cm (SAG x AP x TRV). The kidney is normal in size, contour, and echogenicity. Renal cortical thickness is normal. No focal parenchymal lesions or hydronephrosis. At the interpolar aspect, a 2 mm nonobstructing calculus is seen, with twinkle artifact. US/US renal BI IMPRESSION: A 2 mm nonobstructing left renal calculus is seen. No right renal calculus is seen. No hydronephrosis is noted bilaterally.
== END 2022-05-23 12:38 | disposition home or self-care (01) ==
LOC: HO.US 12:37
PROVIDERS: PCP Internal Medicine; Visit Provider Urology
DX: N20.0 Calculus of kidney (principal)
CPT/HCPCS: 76775

== ENCOUNTER → 2022-06-21 10:59 | Outpatient (BNVA) | payer MEDICARE, SELFPAY | PROVIDERS: PCP Internal Medicine; Visit Provider Urology | DX: N20.0 Calculus of kidney (principal) | CPT/HCPCS: 99212 ==

== ENCOUNTER 2022-09-05 07:08 | Outpatient (REF) | payer MEDICARE, SELFPAY ==
[2022-09-05 07:29] LABS: MANUAL DIFF FLAG NO
[2022-09-05 07:47] LABS: Basophils Absolute Auto 0.1 X10*3/uL (0.0-0.2); Basophils Percent Auto 0.7 % (0-2); Eosinophils Absolute Auto 0.4 X10*3/uL (0.0-0.4); Eosinophils Percent Auto 4.8 % (0-4); Hematocrit 48.1 % (42.0-52.0); Imm Gran Abs Auto 0.02 X10*3/uL (0.00-0.03); Imm Gran Pct Auto 0.3 % (0.0-0.4); Lymphocytes Absolute Auto 2.4 X10*3/uL (1.2-4.9); Lymphocytes Percent Auto 33.5 % (20-40); Mean Corpuscular HGB Conc 33.3 g/dl (31.0-36.0); Mean Corpuscular Hemoglobin 27.8 pg (27.0-33.0); Mean Corpuscular Volume 83.5 fL (80.0-98.0); Mean Platelet Volume 9.7 fL (9.4-12.4); Monocytes Absolute Auto 0.5 X10*3/uL (0.1-1.2); Monocytes Percent Auto 7.4 % (2-11); Neutrophils Absolute Auto 3.9 x10*3/uL (2.0-8.3); Neutrophils Percent Auto 53.3 % (45-73); Platelet Count 260 X10*3/uL (160-400); Red Blood Count 5.76 X10*6/uL (4.60-5.80); Red Cell Distribution Width 12.6 % (11.0-16.0); White Blood Count 7.3 X10*3/uL (4.8-10.8)
[2022-09-05 08:10] LABS: Appearance Urine Clear; Color Urine Yellow; Glucose Urine UA Negative (Negative); Leukocyte Esterase Urine Negative (Negative); Nitrite Urine Negative (Negative); PH 5.5 (5.0-9.0); Specific Gravity - Urine 1.015 (1.005-1.025); Urine Blood Negative (Negative); Urine Ketones Negative (Negative); Urine Protein Negative (Neg-Trace)
[2022-09-05 08:37] LABS: Alanine Aminotransferase 38 U/L (0-40); Alkaline Phosphatase 129 U/L (39-117); Anion Gap 14 (12-20); Aspartate Amino Transferase 70 U/L (5-37); Bilirubin Total 0.9 mg/dL (0.0-1.0); Blood Urea Nitrogen 9 mg/dL (9-16); Calcium 9.4 mg/dL (8.4-10.2); Carbon Dioxide 23 mmol/L (22-29); Chloride 104 mmol/L (96-108); Cholesterol 174 mg/dL; Estimated Glomerular Filt Rate > 60; Glucose Fasting 127 mg/dL (60-99); HDL Cholesterol 40 mg/dL; LDL Cholesterol Calculated 88 mg/dl; Potassium 4.2 mmol/L (3.3-5.1); Sodium 137 mmol/L (135-145); Triglycerides 232 mg/dL
[2022-09-05 08:54] LABS: Prostate Specific Antigen 1.15 ng/mL (<0.05-4.0); TSH reflex Free T4 2.65 uIU/mL (0.32-4.0); Vitamin D 25-OH Total 40.8 ng/mL (>30)
[2022-09-05 09:01] LABS: Estimated Average Glucose 140 mg/dL; Hemoglobin A1c % 6.5 %
== END 2022-09-05 07:09 | disposition home or self-care (01) ==
LOC: HO.LAB 07:08
PROVIDERS: PCP Internal Medicine; Visit Provider Internal Medicine
DX: Z12.5 Encounter for screening for malignant neoplasm of prostate (principal); R73.01 Impaired fasting glucose; E55.9 Vitamin D deficiency, unspecified; N40.0 Benign prostatic hyperplasia without lower urinary tract symptoms; I10 Essential (primary) hypertension; R30.0 Dysuria; E78.00 Pure hypercholesterolemia, unspecified
CPT/HCPCS: 36415; 80053; 80061; 81003; 82306; 83036; 84153; 84443; 85025

== ENCOUNTER 2022-09-17 14:17 | Outpatient (AMB) | payer MEDICARE, SELFPAY ==
--- NOTE | 2022-09-17 14:19 | A.OFFPC_ITS ---
Vital Signs 09/17/22 14:20 Height 5 ft 5 in Weight 157 lb 6 oz BMI 26.2 BP 122/80 Blood Pressure Location Lt brachial Position Sitting Pulse 64 Pulse Source Pulse Oximeter Pulse Oximetry (%) 97 Oxygen Delivery Method Room Air Intake Visit Reasons: 4m F/U hyperlipidemia, HTN, IFG Inpatient Services Rn Required: No Accompanied by: Self / Same As Patient Allergies prochlorperazine [From Compazine] Allergy (Intermediate, Verified 09/17/22 14:41) loss of control of tongue muscle (tongue twisted) Medication List - Last Reconciled 09/17/22 by Jordy Cabral MD atenolol 25 mg PO DAILY atorvastatin 10 mg PO DAILY 90 days cholecalciferol (vitamin D3) 1,250 mcg PO QWEEK cyclobenzaprine 5 mg PO BID PRN famotidine 40 mg (2 x 20 mg) PO BID fenofibrate 160 mg PO DAILY 90 days hydroxyzine HCl 10 mg PO BEDTIME PRN 90 days omega-3 fatty acids-fish oil 360-1,200 mg (Fish Oil) 1 cap PO BID tramadol 50 mg PO TID PRN Tobacco use date assessed: 09/17/22 Fall risk assessment: No Falls in past year Dental Screening Dental Screen Date: 09/17/22 Did you have a dental visit in the last 12 months?: Yes Did you have a dental problem in the last 6 months where you did not have access to dental care?: No Was dental information given to patient?: Patient has dentist HPI 4m F/U hyperlipidemia, HTN, IFG HPI Details Patient comes in today for his follow up visit States that he feels okay He denies any headaches or dizziness Denies any chest pains, no SOB No nausea/vomiting, no abdominal pain No change in bowel habits noted Needs his Hydroxyzine Rx refilled Had his follow up labs done a couple of weeks ago - to discuss his results [facility] Medical History (Updated 09/17/22 @ 14:59 by Jordy Cabral MD) Diabetes mellitus COVID-19 vaccine series completed Recurrent cold sores Renal insufficiency 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 Sister No problems noted. Son No problems noted. Social History Housing: House Alcohol intake: current Alcohol intake frequency: holidays/special occasions only Patient Tobacco Use Status: Former Tobacco user e-Cigarette/Vaping Use: Never Used Second Hand Smoke Exposure: Yes service: No Current occupational status: retired Cognitive needs: No Hearing needs: No Vision needs: Yes Questionnaire PHQ-9 Over the last 2 weeks, how often have you been bothered by any of the following problems? 1. Little interest or pleasure in doing things: not at all 2. Feeling down, depressed, or hopeless: not at all 3. Trouble falling or staying asleep, or sleeping too much: not at all 4. Feeling tired or having little energy: not at all 5. Poor appetite or overeating: not at all 6. Feeling bad about yourself - or that you are a failure or have let yourself or your family down: not at all 7. Trouble concentrating on things, such as reading the newspaper or watching television: not at all 8. Moving or speaking so slowly that other people could have noticed. Or the opposite - being so fidgety or restless that you have been moving around a lot more than usual: not at all 9. Thoughts that you would be better off or of hurting yourself in some way: not at all Total score: 0 Depression Screening Interpretation: Negative 30273 - PHQ-9 Billing: Yes Source: Developed by Drs. Jayden Russ, Clara Mcgee, Prabhakar Glover and colleagues, with an educational kirk from [employer]. Thrive Questionnaire Date Thrive assessed: 09/17/22 I am a: Patient What is your living situation today?: I have a steady place to live Within the past 12 months, did the food you bought not last and you didn't have the money to get more?: Never true Within the past 12 months, did you worry whether your food would run out before you got money to buy more?: Never true Do you have trouble paying for medicines?: No Do you have trouble getting transportation to medical appointments?: No Do you have trouble paying your heating and electricity bill?: No Do you have trouble taking care of your child, family member or friend?: No Do you have trouble with day-to-day activities such as bathing, preparing meals, shopping, managing finances, etc.?: No Are you currently unemployed and looking for a job?: No Are you interested in more education?: No Currently or been in a relationship where the following occur: no concerns reported AUDIT C Alcohol Use Questionnaire (AUDIT-C) 1. How often do you have a drink containing alcohol?: Monthly or less 2. How many drinks containing alcohol do you have on a typical day when you are drinking?: 1 or 2 3. How often do you have six or more drinks on one occasion?: Never Total Score: 1 Score Reviewed/Action Taken: Yes AUSTIN-7 AMB Questionnaire AUSTIN-7 Date AUSTIN - 7 assessed: 09/17/22 Feeling nervous, anxious, or on edge: 0 = Not at all Not being able to stop or control worryin = Not at all Worrying too much about different things: 0 = Not at all Trouble relaxin = Not at all Being so restless that it is hard to sit still: 0 = Not at all Becoming easily annoyed or irritable: 0 = Not at all Feeling afraid as if something awful might happen: 0 = Not at all Total AUSTIN-7 score (0-4 normal; 5-9 mild; 10-14 moderate; 15-21 severe): 0 Source: Developed by Drs. Jayden Russ, Clara Mcgee, Prabhakar Glover and colleagues, with an educational kirk from [employer]. Review of Systems Const Denies fatigue, Denies fever(s) and Denies headache(s) ENT Denies dysphagia, Denies dizziness, Denies headache(s), Reports neck pain and Denies sore throat Card Denies chest pain, Denies palpitations and Denies dyspnea Resp Denies cough and Denies dyspnea GI Denies abdominal pain, Denies constipation, Denies dysphagia, Denies heartburn, Denies diarrhea, Denies nausea and Denies vomiting Denies dysuria and Denies nocturia Musc Reports arthralgias (both shoulders, worse on the left side) and Reports neck pain Neuro Denies dizziness and Denies headache(s) Endo Denies fatigue and Denies palpitations Physical exam (Primary Care) Vital Signs: Last Vital Signs Pulse 64 09/17/22 14:20 BP 122/80 09/17/22 14:20 Pulse Ox 97 09/17/22 14:20 Oxygen Delivery Method Room Air 09/17/22 14:20 BMI result Body Mass Index 26.2 Tobacco/Smoking Status: Tobacco use Status Tobacco use date assessed 09/17/22 09/17/22 14:24 Patient Tobacco Use Status Former Tobacco user 09/17/22 14:24 e-Cigarette/Vaping Use Never Used 09/17/22 14:24 PHQ-9: PHQ-9 Score PHQ-9: Total score 0 09/17/22 14:46 Depression Screening Interpretation: Negative Thrive Assessment: Date of Thrive Assessment Date Thrive assessed 09/17/22 09/17/22 14:24 Currently or been in a relationship where the following occur: no concerns reported Const General: no acute distress and alert HENMT Ears: TM's normal bilaterally Throat: Yes posterior oropharynx normal and Yes tonsils normal (no TP congestion noted) Neck Neck: Yes no lymphadenopathy and Yes supple Resp Auscultation: clear to auscultation bilaterally, no rales and no wheezes Cardio Rate: regular rate Rhythm: regular rhythm Heart sounds: no murmurs GI Palpation (GI): Soft to palpation, nontender and No hepatosplenomegaly present Back/Spine/Pelvis Cervical Spine: Cervical spine tenderness (mild) Extrem General: Yes no clubbing, cyanosis or edema Right upper extremity: shoulder/upper arm Details: tenderness Left upper extremity: shoulder/upper arm Details: tenderness Results Reviewed Results Reviewed: Laboratory Tests 09/05/22 09/05/22 09/05/22 07:24 07:27 07:27 WBC 7.3 Hgb 16.0 Hct 48.1 Plt Count 260 Sodium 137 Potassium 4.2 Creatinine 0.96 Estimated GFR > 60 Fasting Glucose 127 H Hemoglobin A1c % Calcium 9.4 D AST 70 H ALT 38 Triglycerides 232 Cholesterol 174 LDL Cholesterol, Calc 88 HDL Cholesterol 40 Prostate Specific Ag 1.15 25-OH Vitamin D Total 40.8 TSH 2.65 Ur Specific [place] 1.015 Urine Protein Negative Urine Glucose (UA) Negative Urine Blood Negative 09/05/22 07:27 WBC Hgb Hct Plt Count Sodium Potassium Creatinine Estimated GFR Fasting Glucose Hemoglobin A1c % 6.5 Calcium AST ALT Triglycerides Cholesterol LDL Cholesterol, Calc HDL Cholesterol Prostate Specific Ag 25-OH Vitamin D Total TSH Ur Specific [place] Urine Protein Urine Glucose (UA) Urine Blood Assessment and Plan Assessment & Plan (1) Mixed hyperlipidemia: Code(s): E78.2 - Mixed hyperlipidemia Plan: Results of his labs done a couple of weeks ago reviewed and discussed with patient - his serum triglycerides remains elevated but his total and LDL cholesterol numbers have improved slightly from previous Reinforced low cholesterol diet Continue Atorvastatin 10 mg QD and Fenofibrate 160 mg QD Will recheck his labs and fasting lipids in 4 months for follow up (2) Diabetes mellitus: Code(s): E11.9 - Type 2 diabetes mellitus without complications Qualifiers: Diabetes mellitus complication status: with hyperglycemia Diabetes mellitus chcf insulin use: without chcf use Diabetes mellitus type: type 2 Qualified Code(s): E11.65 - Type 2 diabetes mellitus with hyperglycemia Plan: HgbA1c was at 6.5% on his recent labs; HgbA1c was at 6.4% a few months ago Reinforced diabetic diet Advised that if he cannot get his HgbA1c down any further with diet modification alone, will need to consider starting him on pharmacotherapy for his diabetes (3) Benign essential hypertension: Code(s): I10 - Essential (primary) hypertension Plan: Reinforced low sodium diet - goal is systolic BP of at least 130 to 140 mm or less Continue Atenolol 25 mg QD (4) GERD without esophagitis: Code(s): K21.9 - Gastro-esophageal reflux disease without esophagitis Plan: Dietary restrictions reinforced Continue Famotidine 20 mg BID PRN (5) Generalized pruritus: Code(s): L29.9 - Pruritus, unspecified Plan: Continue Hydroxyzine 10 mg Q HS PRN (Rx refilled) and Clotrimazole 1% cream apply to affected areas BID PRN (6) Vitamin D deficiency: Code(s): E55.9 - Vitamin D deficiency, unspecified Plan: Continue Vitamin D2 37222 units once a week (7) Osteoarthritis of cervical spine: Code(s): M47.812 - Spondylosis without myelopathy or radiculopathy, cervical region Qualifiers: Spinal osteoarthritis complication: unspecified spinal osteoarthritis Qualified Code(s): M47.812 - Spondylosis without myelopathy or radiculopathy, cervical region Plan: Continue Tizanidine 4 mg TID PRN (8) Primary osteoarthritis of right shoulder: Comment: Most recent x-rays done in 2017 revealed (+)mild acromioclavicular and minimal glenohumeral degenerative arthritis Code(s): M19.011 - Primary osteoarthritis, right shoulder Plan: Continue Tramadol 50 mg TID PRN Follow up with orthopedics as scheduled - symptoms have improved a lot in the past with cortisone injections and physical therapy when needed (9) Left shoulder pain: Code(s): M25.512 - Pain in left shoulder Qualifiers: Chronicity: acute Qualified Code(s): M25.512 - Pain in left shoulder Plan: X-rays of the left shoulder done last year revealed (+) mild acromioclavicular degenerative joint changes Follow up with orthopedics as scheduled Plan Follow up in 4 months Orders: Orders Lipid Panel 4 Months E78.00 - Pure hypercholesterolemia, unspecified Hemoglobin A1c 4 Months E11.9 - Type 2 diabetes mellitus without complications Complete Blood Count Auto Diff 4 Months I10 - Essential (primary) hypertension Comprehensive [place]. Panel Fast 4 Months E78.00 - Pure hypercholesterolemia, unspecified Microalbumin, Random (w Creat) 4 Months E11.9 - Type 2 diabetes mellitus without complications TSH reflex Free T4 4 Months E78.00 - Pure hypercholesterolemia, unspecified UA CC w/rflx Micro + Cult 4 Months R30.0 - Dysuria Vitamin D 25-OH Total 4 Months E55.9 - Vitamin D deficiency, unspecified Medications: Refilled hydroxyzine HCl 10 mg PO BEDTIME PRN 90 tabs 3RF itching and/or anxiety 90 days L29.9 - Pruritus, unspecified Coding Level of Care Code Est Pt Level 4 (11261) Diagnoses Mixed hyperlipidemia E78.2 Type 2 diabetes mellitus with hyperglycemia, without long-term current use of insulin E11.65 Diabetes mellitus complication status: with hyperglycemia Diabetes mellitus chcf insulin use: without chcf use Diabetes mellitus type: type 2 Benign essential hypertension I10 GERD without esophagitis K21.9 Generalized pruritus L29.9 Vitamin D deficiency E55.9 Osteoarthritis of cervical spine, unspecified spinal osteoarthritis complication status M47.812 Spinal osteoarthritis complication: unspecified spinal osteoarthritis Primary osteoarthritis of right shoulder M19.011 Acute pain of left shoulder M25.512 Chronicity: acute
[2022-09-17 14:20] VITALS: BP 122/80; PULSE 64; O2SAT 97; BMI 26.2
== END 2022-09-17 14:57 | disposition home or self-care (01) ==
PROVIDERS: Visit Provider Internal Medicine
DX: E11.65 Type 2 diabetes mellitus with hyperglycemia (principal); I10 Essential (primary) hypertension; K21.9 Gastro-esophageal reflux disease without esophagitis; E55.9 Vitamin D deficiency, unspecified; E78.2 Mixed hyperlipidemia; L29.9 Pruritus, unspecified; M47.812 Spondylosis without myelopathy or radiculopathy, cervical region; M19.011 Primary osteoarthritis, right shoulder; M25.512 Pain in left shoulder
CPT/HCPCS: 99214

== ENCOUNTER 2023-01-10 08:37 | Outpatient (REF) | payer MEDICARE, SELFPAY ==
[2023-01-10 09:03] LABS: MANUAL DIFF FLAG NO
[2023-01-10 09:41] LABS: Basophils Absolute Auto 0.1 X10*3/uL (0.0-0.2); Basophils Percent Auto 0.6 % (0-2); Eosinophils Absolute Auto 0.5 X10*3/uL (0.0-0.4); Eosinophils Percent Auto 5.2 % (0-4); Hematocrit 50.1 % (42.0-52.0); Hemoglobin 16.7 g/dl (14.0-18.0); Imm Gran Abs Auto 0.04 X10*3/uL (0.00-0.03); Imm Gran Pct Auto 0.4 % (0.0-0.4); Lymphocytes Absolute Auto 2.3 X10*3/uL (1.2-4.9); Lymphocytes Percent Auto 25.9 % (20-40); Mean Corpuscular HGB Conc 33.3 g/dl (31.0-36.0); Mean Corpuscular Hemoglobin 27.8 pg (27.0-33.0); Mean Corpuscular Volume 83.5 fL (80.0-98.0); Mean Platelet Volume 10.3 fL (9.4-12.4); Monocytes Absolute Auto 0.6 X10*3/uL (0.1-1.2); Monocytes Percent Auto 6.2 % (2-11); Neutrophils Absolute Auto 5.6 x10*3/uL (2.0-8.3); Neutrophils Percent Auto 61.7 % (45-73); Platelet Count 299 X10*3/uL (160-400); Red Cell Distribution Width 13.5 % (11.0-16.0)
[2023-01-10 09:56] LABS: Estimated Average Glucose 131 mg/dL; Hemoglobin A1c % 6.2 % (<6.0)
[2023-01-10 10:15] LABS: Alanine Aminotransferase 26 U/L (0-40); Albumin Level 4.3 g/dL (3.5-5.0); Alkaline Phosphatase 93 U/L (39-117); Anion Gap 15 (12-20); Aspartate Amino Transferase 38 U/L (5-37); Blood Urea Nitrogen 13 mg/dL (9-16); Calcium 9.9 mg/dL (8.4-10.2); Carbon Dioxide 24 mmol/L (22-29); Chloride 105 mmol/L (96-108); Cholesterol 187 mg/dL (<200); Estimated Glomerular Filt Rate > 60; Glucose Fasting 113 mg/dL (60-99); HDL Cholesterol 45 mg/dL (>40); LDL Cholesterol Calculated 111 mg/dL (<100); Potassium 3.8 mmol/L (3.3-5.1); Sodium 140 mmol/L (135-145); Total Protein 7.3 g/dL (6.5-8.0); Triglycerides 155 mg/dL (<150)
[2023-01-10 10:36] LABS: Vitamin D 25-OH Total 40.6 ng/mL (>30)
[2023-01-10 10:38] LABS: Appearance Urine Clear; Color Urine Yellow; Glucose Urine UA Negative (Negative); Leukocyte Esterase Urine Negative (Negative); Nitrite Urine Negative (Negative); Specific Gravity - Urine 1.015 (1.005-1.025); Urine Blood Negative (Negative); Urine Ketones Negative (Negative); Urine Protein Negative (Neg-Trace)
[2023-01-10 10:59] LABS: Creatinine Urine 83.92 mg/dL; Microalbumin Urine < 5.0 mg/L
== END 2023-01-10 08:38 | disposition home or self-care (01) ==
LOC: HO.LAB 08:37
PROVIDERS: PCP Internal Medicine; Visit Provider Internal Medicine
DX: I10 Essential (primary) hypertension (principal); E78.00 Pure hypercholesterolemia, unspecified; E11.9 Type 2 diabetes mellitus without complications; R30.0 Dysuria; E55.9 Vitamin D deficiency, unspecified
CPT/HCPCS: 36415; 80053; 80061; 81003; 82306; 82570; 83036; 84443; 85025

== ENCOUNTER 2023-01-17 14:03 | Outpatient (AMB) | payer MEDICARE, SELFPAY ==
[2023-01-17 14:32] VITALS: BP 122/84; PULSE 65; O2SAT 95; BMI 26.4
--- NOTE | 2023-01-17 14:32 | MHC.PC.OV ---
Vital Signs 01/17/23 14:32 Height 5 ft 5 in Weight 158 lb 6 oz BMI 26.4 BP 122/84 Blood Pressure Location Lt brachial Position Sitting Pulse 65 Pulse Source Pulse Oximeter Pulse Oximetry (%) 95 Oxygen Delivery Method Room Air Intake Visit Reasons: 4 Month Follow Up Intake Note: The patient is here for a 4-month follow-up and to discuss the lab results. The patient has requested a glucose meter kit to monitor their glucose levels. Director Employee Communications Required: No Accompanied by: Self / Same As Patient Allergies prochlorperazine [From Compazine] Allergy (Intermediate, Verified 01/17/23 15:03) loss of control of tongue muscle (tongue twisted) Medication List - Last Reconciled 01/17/23 by Jordy Cabral MD atenolol 25 mg PO DAILY atorvastatin 10 mg PO DAILY 90 days cholecalciferol (vitamin D3) 1,250 mcg PO QWEEK cyclobenzaprine 5 mg PO BID PRN famotidine 40 mg (2 x 20 mg) PO BID fenofibrate 160 mg PO DAILY 90 days hydroxyzine HCl 10 mg PO BEDTIME PRN 90 days omega-3 fatty acids-fish oil 360-1,200 mg (Fish Oil) 1 cap PO BID tramadol 50 mg PO TID PRN Tobacco use date assessed: 09/17/22 Fall risk assessment: No Falls in past year Last assessed Fall Risk: 01/17/23 Dental Screening Dental Screen Date: 01/17/23 Did you have a dental visit in the last 12 months?: Yes Did you have a dental problem in the last 6 months where you did not have access to dental care?: No Was dental information given to patient?: Patient has dentist HPI 4 Month Follow Up HPI Details Patient comes in today for his follow up visit States that he feels okay Recently noticed a couple of dark skin lesions on his back - would like to see if these need to be checked out States that the lesions do not itch or hurt He denies any headaches or dizziness Denies any chest pains, no SOB No nausea/vomiting, no abdominal pain No change in bowel habits noted Needs his Hydroxyzine Rx refilled; also needs Rx for a new glucometer, test strips and lancets Had his follow up labs done last week - to discuss his results [facility] Medical History Diabetes mellitus COVID-19 vaccine series completed Recurrent cold sores Renal insufficiency 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 Sister No problems noted. Son No problems noted. Social History Housing: House Alcohol intake: current Alcohol intake frequency: holidays/special occasions only Patient Tobacco Use Status: Former Tobacco user e-Cigarette/Vaping Use: Never Used Second Hand Smoke Exposure: Yes service: No Current occupational status: retired Cognitive needs: No Hearing needs: No Vision needs: Yes Questionnaire Thrive Questionnaire Date Thrive assessed: 09/17/22 [place]-7 AMB Questionnaire [place]-7 Date [place] - 7 assessed: 09/17/22 Source: Developed by Drs. Jayden Russ, Clara Mcgee, Prabhakar Glover and colleagues, with an educational kirk from [employer]. Review of Systems Const Denies chills, Denies fatigue, Denies fever(s) and Denies headache(s) ENT Denies dysphagia, Denies dizziness, Denies otalgia, Denies headache(s), Reports neck pain, Denies odynophagia and Denies sore throat Card Denies chest pain, Denies palpitations and Denies dyspnea Resp Denies cough and Denies dyspnea GI Denies abdominal pain, Denies constipation, Denies dysphagia, Denies heartburn, Denies diarrhea, Denies nausea, Denies odynophagia and Denies vomiting Denies dysuria, Denies nocturia and Denies urinary frequency Musc Reports arthralgias (both shoulders, worse on the left side) and Reports neck pain Skin/Breast Details: (+) couple of dark-colored skin lesions on the middle of his back Denies rash Neuro Denies dizziness and Denies headache(s) Endo Denies fatigue and Denies palpitations Physical exam (Primary Care) Vital Signs: Last Vital Signs Pulse 65 01/17/23 14:32 BP 122/84 01/17/23 14:32 Pulse Ox 95 01/17/23 14:32 Oxygen Delivery Method Room Air 01/17/23 14:32 BMI result Body Mass Index 26.4 Tobacco/Smoking Status: Tobacco use Status Tobacco use date assessed 09/17/22 01/17/23 14:34 Patient Tobacco Use Status Former Tobacco user 01/17/23 14:34 e-Cigarette/Vaping Use Never Used 01/17/23 14:34 Thrive Assessment: Date of Thrive Assessment Date Thrive assessed 09/17/22 01/17/23 14:34 Const General: no acute distress and alert HENMT Ears: TM's normal bilaterally and EAC's normal Throat: Yes posterior oropharynx normal and Yes tonsils normal (no TP congestion noted) Neck Neck: Yes no lymphadenopathy and Yes supple Resp Auscultation: clear to auscultation bilaterally, no rales and no wheezes Cardio Rate: regular rate Rhythm: regular rhythm Heart sounds: no murmurs GI Palpation (GI): Soft to palpation and nontender Auscultation: normal bowel sounds Back/Spine/Pelvis Cervical Spine: Cervical spine tenderness (mild) Skin Other: (+) couple of hyperpigmented irregular-appearing lesions on the mid-thoracic area Extrem General: Yes no clubbing, cyanosis or edema Right upper extremity: shoulder/upper arm Details: tenderness Left upper extremity: shoulder/upper arm Details: tenderness Results Reviewed Results Reviewed: Laboratory Tests 01/10/23 01/10/23 01/10/23 09:00 09:01 09:01 WBC 9.0 Hgb 16.7 Hct 50.1 Plt Count 299 Sodium 140 Potassium 3.8 Creatinine 1.01 Estimated GFR > 60 Fasting Glucose 113 H Hemoglobin A1c % 6.2 H Calcium 9.9 AST 38 H ALT 26 Triglycerides 155 H Cholesterol 187 LDL Cholesterol, Calc 111 H HDL Cholesterol 45 25-OH Vitamin D Total 40.6 TSH 2.00 Ur Specific [place] 1.015 Urine Protein Negative Urine Glucose (UA) Negative Urine Blood Negative Assessment and Plan Assessment & Plan (1) Mixed hyperlipidemia: Code(s): E78.2 - Mixed hyperlipidemia Plan: Results of his labs done last week reviewed and discussed with patient - his serum triglycerides has improved slightly but his LDL cholesterol has increased from previous Reinforced low cholesterol diet Continue Atorvastatin 10 mg QD and Fenofibrate 160 mg QD Will recheck his labs and fasting lipids in 4 months for follow up (2) Diabetes mellitus: Code(s): E11.9 - Type 2 diabetes mellitus without complications Qualifiers: Diabetes mellitus complication status: with hyperglycemia Diabetes mellitus extermination inspector insulin use: without senior living use Diabetes mellitus type: type 2 Qualified Code(s): E11.65 - Type 2 diabetes mellitus with hyperglycemia Plan: HgbA1c was at 6.2% on his recent labs; HgbA1c was at 6.5% a few months ago Reinforced diabetic diet Advised again that if he cannot get his HgbA1c down any further with diet modification alone, we will need to consider starting him on pharmacotherapy for his diabetes Per request, Rx for a new glucometer, test strips and lancets sent in to [facility] mail-order pharmacy He is advised to get his high-dose flu vaccine at his local pharmacy [facility] as we only have the regular quadrivalent vaccine here in the office (3) Benign essential hypertension: Code(s): I10 - Essential (primary) hypertension Plan: Reinforced low sodium diet - goal is systolic BP of at least 130 to 140 mm or less Continue Atenolol 25 mg QD (4) GERD without esophagitis: Code(s): K21.9 - Gastro-esophageal reflux disease without esophagitis Plan: Dietary restrictions reinforced Continue Famotidine 20 mg BID PRN (5) Generalized pruritus: Code(s): L29.9 - Pruritus, unspecified Plan: Continue Hydroxyzine 10 mg Q HS PRN (Rx refilled) and Clotrimazole 1% cream apply to affected areas BID PRN (6) Vitamin D deficiency: Code(s): E55.9 - Vitamin D deficiency, unspecified Plan: Continue Vitamin D2 96429 units once a week (7) Hyperpigmented skin lesion: Code(s): L81.9 - Disorder of pigmentation, unspecified Plan: Will refer him to dermatology for further evaluation and management of the hyperpigmented and irregular-appearing lesions on his back (8) Osteoarthritis of cervical spine: Code(s): M47.812 - Spondylosis without myelopathy or radiculopathy, cervical region Qualifiers: Spinal osteoarthritis complication: unspecified spinal osteoarthritis Qualified Code(s): M47.812 - Spondylosis without myelopathy or radiculopathy, cervical region Plan: Continue Tizanidine 4 mg TID PRN (9) Primary osteoarthritis of right shoulder: Comment: Most recent x-rays done in 2017 revealed (+)mild acromioclavicular and minimal glenohumeral degenerative arthritis Code(s): M19.011 - Primary osteoarthritis, right shoulder Plan: Continue Tramadol 50 mg TID PRN Follow up with orthopedics as scheduled - symptoms have improved a lot in the past with cortisone injections and physical therapy when needed (10) Left shoulder pain: Code(s): M25.512 - Pain in left shoulder Qualifiers: Chronicity: acute Qualified Code(s): M25.512 - Pain in left shoulder Plan: X-rays of the left shoulder done last year revealed (+) mild acromioclavicular degenerative joint changes Follow up with orthopedics as scheduled Plan Follow up in 4 months Orders: Orders Comprehensive [place]. Panel Fast 4 Months E78.00 - Pure hypercholesterolemia, unspecified Microalbumin, Random (w Creat) 4 Months E11.9 - Type 2 diabetes mellitus without complications UA CC w/rflx Micro + Cult 4 Months R30.0 - Dysuria Hemoglobin A1c 4 Months E11.9 - Type 2 diabetes mellitus without complications Complete Blood Count Auto Diff 4 Months I10 - Essential (primary) hypertension Lipid Panel 4 Months E78.00 - Pure hypercholesterolemia, unspecified TSH reflex Free T4 4 Months E78.00 - Pure hypercholesterolemia, unspecified Vitamin D 25-OH Total 4 Months E55.9 - Vitamin D deficiency, unspecified Referrals Dermatology Referral L81.9 - Disorder of pigmentation, unspecified Medications: New blood-glucose meter As directed 1 ea 0RF E11.9 - Type 2 diabetes mellitus without complications blood sugar diagnostic (Accu-Chek Anastasia Plus test strips) As directed once a day 100 ea 3RF E11.9 - Type 2 diabetes mellitus without complications lancets (Accu-Chek Softclix Lancets) As directed once a day 100 ea 3RF E11.9 - Type 2 diabetes mellitus without complications Refilled hydroxyzine HCl 10 mg PO BEDTIME 90 days PRN 90 tabs 3RF itching and/or anxiety L29.9 - Pruritus, unspecified Coding Level of Care Code Est Pt Level 4 (64852) Diagnoses Mixed hyperlipidemia E78.2 Type 2 diabetes mellitus with hyperglycemia, without long-term current use of insulin E11.65 Diabetes mellitus complication status: with hyperglycemia Diabetes mellitus extermination inspector insulin use: without extermination inspector use Diabetes mellitus type: type 2 Benign essential hypertension I10 GERD without esophagitis K21.9 Generalized pruritus L29.9 Vitamin D deficiency E55.9 Hyperpigmented skin lesion L81.9 Osteoarthritis of cervical spine, unspecified spinal osteoarthritis complication status M47.812 Spinal osteoarthritis complication: unspecified spinal osteoarthritis Primary osteoarthritis of right shoulder M19.011 Acute pain of left shoulder M25.512 Chronicity: acute
== END 2023-01-17 15:22 | disposition home or self-care (01) ==
PROVIDERS: PCP Internal Medicine; Visit Provider Internal Medicine
DX: E78.2 Mixed hyperlipidemia (principal); E11.65 Type 2 diabetes mellitus with hyperglycemia; I10 Essential (primary) hypertension; K21.9 Gastro-esophageal reflux disease without esophagitis; L29.9 Pruritus, unspecified; E55.9 Vitamin D deficiency, unspecified; L81.9 Disorder of pigmentation, unspecified; M47.812 Spondylosis without myelopathy or radiculopathy, cervical region; M19.011 Primary osteoarthritis, right shoulder; M25.512 Pain in left shoulder
CPT/HCPCS: 99214

== ENCOUNTER 2023-05-14 08:25 | Outpatient (REF) | payer MEDICARE, SELFPAY ==
[2023-05-14 08:37] LABS: MANUAL DIFF FLAG NO
[2023-05-14 09:17] LABS: Basophils Percent Auto 0.5 % (0-2); Eosinophils Absolute Auto 0.4 X10*3/uL (0.0-0.4); Eosinophils Percent Auto 4.7 % (0-4); Imm Gran Abs Auto 0.04 X10*3/uL (0.00-0.03); Imm Gran Pct Auto 0.5 % (0.0-0.4); Lymphocytes Absolute Auto 2.7 X10*3/uL (1.2-4.9); Lymphocytes Percent Auto 34.4 % (20-40); Mean Corpuscular HGB Conc 33.3 g/dl (31.0-36.0); Mean Corpuscular Hemoglobin 27.8 pg (27.0-33.0); Mean Corpuscular Volume 83.3 fL (80.0-98.0); Mean Platelet Volume 10.1 fL (9.4-12.4); Monocytes Absolute Auto 0.4 X10*3/uL (0.1-1.2); Monocytes Percent Auto 5.6 % (2-11); Neutrophils Absolute Auto 4.2 x10*3/uL (2.0-8.3); Neutrophils Percent Auto 54.3 % (45-73); Platelet Count 263 X10*3/uL (160-400); Red Blood Count 6.12 X10*6/uL (4.60-5.80); Red Cell Distribution Width 12.9 % (11.0-16.0); White Blood Count 7.8 X10*3/uL (4.8-10.8)
[2023-05-14 09:25] LABS: Estimated Average Glucose 140 mg/dL; Hemoglobin A1c % 6.5 % (<6.0)
[2023-05-14 09:27] LABS: Appearance Urine Clear; Color Urine Yellow; Glucose Urine UA Negative (Negative); Leukocyte Esterase Urine Negative (Negative); Nitrite Urine Negative (Negative); Specific Gravity - Urine 1.015 (1.005-1.025); Urine Blood Negative (Negative); Urine Ketones Negative (Negative); Urine Protein Negative (Neg-Trace)
[2023-05-14 09:44] LABS: Creatinine Urine 103.52 mg/dL; Microalbum/Creatinine Ratio Ur 8.6 ug/mg cr (<30)
[2023-05-14 09:49] LABS: Alanine Aminotransferase 31 U/L (0-40); Alkaline Phosphatase 97 U/L (39-117); Anion Gap 13 (12-20); Aspartate Amino Transferase 51 U/L (5-37); Blood Urea Nitrogen 12 mg/dL (9-16); Calcium 9.8 mg/dL (8.4-10.2); Carbon Dioxide 26 mmol/L (22-29); Chloride 105 mmol/L (96-108); Cholesterol 180 mg/dL (<200); Estimated Glomerular Filt Rate > 60; Glucose Fasting 116 mg/dL (60-99); HDL Cholesterol 44 mg/dL (>40); LDL Cholesterol Calculated 100 mg/dL (<100); Sodium 140 mmol/L (135-145); Total Protein 7.1 g/dL (6.5-8.0); Triglycerides 180 mg/dL (<150)
[2023-05-14 10:04] LABS: TSH reflex Free T4 2.02 uIU/mL (0.32-4.0); Vitamin D 25-OH Total 37.7 ng/mL (>30)
== END 2023-05-14 08:26 | disposition home or self-care (01) ==
LOC: HO.LAB 08:25
PROVIDERS: PCP Internal Medicine; Visit Provider Internal Medicine
DX: E11.9 Type 2 diabetes mellitus without complications (principal); R30.0 Dysuria; E78.00 Pure hypercholesterolemia, unspecified; E55.9 Vitamin D deficiency, unspecified; I10 Essential (primary) hypertension
CPT/HCPCS: 36415; 80053; 80061; 81003; 82043; 82306; 82570; 83036; 84443; 85025

== ENCOUNTER 2023-05-20 13:33 | Outpatient (AMB) | payer MEDICARE, SELFPAY ==
[2023-05-20 13:45] VITALS: BP 102/64; PULSE 62; O2SAT 98; BMI 26.5
--- NOTE | 2023-05-20 13:45 | A.OFFPC_ITS ---
Vital Signs 05/20/23 13:45 Height 5 ft 5 in Weight 159 lb BMI 26.5 BP 102/64 Blood Pressure Location Lt brachial Position Sitting Pulse 62 Pulse Source Pulse Oximeter Pulse Oximetry (%) 98 Oxygen Delivery Method Room Air Intake Visit Reasons: DM, hyperlipidemia, HTN, cervical DDD, pruritus Nuclear Weapons Custodian Required: No Software Project Lead: Not Required per policy Accompanied by: Self / Same As Patient Allergies prochlorperazine [From Compazine] Allergy (Intermediate, Verified 05/20/23 14:21) loss of control of tongue muscle (tongue twisted) Medication List - Last Reconciled 05/20/23 by Jordy Cabral MD atenolol 25 mg PO DAILY atorvastatin 10 mg PO DAILY 90 days blood sugar diagnostic (Accu-Chek Anastasia Plus test strips) As directed once a day blood-glucose meter As directed cholecalciferol (vitamin D3) 1,250 mcg PO QWEEK cyclobenzaprine 5 mg PO BID PRN famotidine 40 mg (2 x 20 mg) PO BID fenofibrate 160 mg PO DAILY hydroxyzine HCl 10 mg PO BEDTIME PRN 90 days lancets (Accu-Chek Softclix Lancets) As directed once a day omega-3 fatty acids-fish oil 360-1,200 mg (Fish Oil) 1 cap PO BID tramadol 50 mg PO TID PRN Tobacco use date assessed: 05/20/23 Fall risk assessment: No Falls in past year Last assessed Fall Risk: 05/20/23 Dental Screening Dental Screen Date: 05/20/23 Did you have a dental visit in the last 12 months?: Yes Did you have a dental problem in the last 6 months where you did not have access to dental care?: No Was dental information given to patient?: Patient has dentist HPI DM, hyperlipidemia, HTN, cervical DDD, pruritus HPI Details Patient comes in today for his follow up visit States that he feels okay except for increasing pain over his left shoulder recently X-rays of the shoulder done in 2021 revealed (+) OA changes Patient denies any recent injury or trauma to his shoulder He denies any headaches or dizziness Denies any chest pains, no SOB No nausea/vomiting, no abdominal pain No change in bowel habits noted Needs his Hydroxyzine Rx refilled Had his follow up labs done last week - to discuss his results ON LICENSE OF [facility] Medical History Diabetes mellitus COVID-19 vaccine series completed Recurrent cold sores Renal insufficiency 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 Sister No problems noted. Son No problems noted. Social History Housing: House Alcohol intake: current Alcohol intake frequency: holidays/special occasions only Patient Tobacco Use Status: Former Tobacco user e-Cigarette/Vaping Use: Never Used Second Hand Smoke Exposure: Yes service: No Current occupational status: retired Cognitive needs: No Hearing needs: No Vision needs: Yes Questionnaire PHQ-9 Over the last 2 weeks, how often have you been bothered by any of the following problems? 1. Little interest or pleasure in doing things: not at all 2. Feeling down, depressed, or hopeless: not at all 3. Trouble falling or staying asleep, or sleeping too much: not at all 4. Feeling tired or having little energy: not at all 5. Poor appetite or overeating: not at all 6. Feeling bad about yourself - or that you are a failure or have let yourself or your family down: not at all 7. Trouble concentrating on things, such as reading the newspaper or watching television: not at all 8. Moving or speaking so slowly that other people could have noticed. Or the opposite - being so fidgety or restless that you have been moving around a lot more than usual: not at all 9. Thoughts that you would be better off or of hurting yourself in some way: not at all Total score: 0 Depression Screening Interpretation: Negative Depression Screening Done: Yes 33565 - PHQ-9 Billing: Yes Source: Developed by Drs. Jayden Russ, Clara Mcgee, Prabhakar Glover and colleagues, with an educational kirk from [employer]. Thrive Questionnaire Date Thrive assessed: 05/20/23 I am a: Patient What is your living situation today?: I have a steady place to live Within the past 12 months, did the food you bought not last and you didn't have the money to get more?: Never true Within the past 12 months, did you worry whether your food would run out before you got money to buy more?: Never true Do you have trouble paying for medicines?: No Do you have trouble getting transportation to medical appointments?: No Do you have trouble paying your heating and electricity bill?: No Do you have trouble taking care of your child, family member or friend?: No Do you have trouble with day-to-day activities such as bathing, preparing meals, shopping, managing finances, etc.?: No Are you currently unemployed and looking for a job?: No Are you interested in more education?: No Please select the resources that you would like help with: None Currently or been in a relationship where the following occur: no concerns reported THRIVE Score: 0 AUDIT C Alcohol Use Questionnaire (AUDIT-C) 1. How often do you have a drink containing alcohol?: Monthly or less 2. How many drinks containing alcohol do you have on a typical day when you are drinking?: 1 or 2 3. How often do you have six or more drinks on one occasion?: Never Total Score: 1 Score Reviewed/Action Taken: Yes AUSTIN-7 AMB Questionnaire AUSTIN-7 Date AUSTIN - 7 assessed: 05/20/23 Feeling nervous, anxious, or on edge: 0 = Not at all Not being able to stop or control worryin = Not at all Worrying too much about different things: 0 = Not at all Trouble relaxin = Not at all Being so restless that it is hard to sit still: 0 = Not at all Becoming easily annoyed or irritable: 0 = Not at all Feeling afraid as if something awful might happen: 0 = Not at all Total AUSTIN-7 score (0-4 normal; 5-9 mild; 10-14 moderate; 15-21 severe): 0 Source: Developed by Drs. Jayden Russ, Clara Mcgee, Prabhakar Glover and colleagues, with an educational kirk from [employer]. Review of Systems Const Denies chills, Denies fatigue, Denies fever(s) and Denies headache(s) ENT Denies dysphagia, Denies dizziness, Denies otalgia, Denies headache(s), Reports neck pain, Denies odynophagia and Denies sore throat Card Denies chest pain, Denies palpitations and Denies dyspnea Resp Denies cough and Denies dyspnea GI Denies abdominal pain, Denies constipation, Denies dysphagia, Denies heartburn, Denies diarrhea, Denies nausea, Denies odynophagia and Denies vomiting Denies dysuria, Denies nocturia and Denies urinary frequency Musc Reports arthralgias (both shoulders, worse on the left side) and Reports neck pain Skin/Breast Denies rash Neuro Denies dizziness and Denies headache(s) Endo Denies fatigue and Denies palpitations Physical exam (Primary Care) Vital Signs: Last Vital Signs Pulse 62 05/20/23 13:45 BP 102/64 05/20/23 13:45 Pulse Ox 98 05/20/23 13:45 Oxygen Delivery Method Room Air 05/20/23 13:45 BMI result Body Mass Index 26.5 Tobacco/Smoking Status: Tobacco use Status Tobacco use date assessed 05/20/23 05/20/23 13:46 Patient Tobacco Use Status Former Tobacco user 05/20/23 13:46 e-Cigarette/Vaping Use Never Used 05/20/23 13:46 PHQ-9: PHQ-9 Score PHQ-9: Total score 0 05/20/23 13:46 Depression Screening Interpretation: Negative Thrive Assessment: Date of Thrive Assessment Date Thrive assessed 05/20/23 05/20/23 13:46 Currently or been in a relationship where the following occur: no concerns reported Const General: no acute distress and alert HENMT Ears: TM's normal bilaterally and EAC's normal Throat: Yes posterior oropharynx normal and Yes tonsils normal (no TP congestion noted) Neck Neck: Yes no lymphadenopathy and Yes supple Thyroid: Thyroid normal Resp Auscultation: clear to auscultation bilaterally, no rales and no wheezes Cardio Rate: regular rate Rhythm: regular rhythm Heart sounds: no murmurs GI Palpation (GI): Soft to palpation and nontender Auscultation: normal bowel sounds General: Yes no CVA tenderness Back/Spine/Pelvis Back: no CVA tenderness Cervical Spine: Cervical spine tenderness (mild) Skin Rashes: no rashes Extrem General: Yes no clubbing, cyanosis or edema Right upper extremity: shoulder/upper arm Details: tenderness Left upper extremity: shoulder/upper arm (increased) Details: tenderness; no swelling Results Reviewed Results Reviewed: Laboratory Tests 05/14/23 05/14/23 08:31 08:33 WBC 7.8 Hgb 17.0 Hct 51.0 Plt Count 263 Sodium 140 Potassium 4.0 Creatinine 1.00 Estimated GFR > 60 Fasting Glucose 116 H Hemoglobin A1c % 6.5 H Calcium 9.8 AST 51 H ALT 31 Triglycerides 180 H Cholesterol 180 LDL Cholesterol, Calc 100 H HDL Cholesterol 44 25-OH Vitamin D Total 37.7 TSH 2.02 Ur Specific Jacob 1.015 Urine Protein Negative Urine Glucose (UA) Negative Urine Blood Negative Urine Nitrite Negative Ur Leukocyte Esterase Negative Microalb/Creat Ratio 8.6 Assessment and Plan Assessment & Plan (1) Mixed hyperlipidemia: Code(s): E78.2 - Mixed hyperlipidemia Plan: Results of his labs done last week reviewed and discussed with patient Reinforced low cholesterol diet Continue Atorvastatin 10 mg QD and Fenofibrate 160 mg QD Will recheck his labs and fasting lipids in 4 months for follow up (2) Diabetes mellitus: Code(s): E11.9 - Type 2 diabetes mellitus without complications Qualifiers: Diabetes mellitus type: type 2 Diabetes mellitus terminal manager insulin use: without nursing home use Diabetes mellitus complication status: with hyperglycemia Qualified Code(s): E11.65 - Type 2 diabetes mellitus with hyperglycemia Plan: HgbA1c was at 6.5% on his recent labs; was at 6.2% a few months ago - goal is <6.0 to 6.2% or less if he wants to continue to avoid taking any Rx Reinforced diabetic diet Advised again that if he cannot get his HgbA1c down any further with diet modification alone, we will need to consider starting him on pharmacotherapy for his diabetes (3) Benign essential hypertension: Code(s): I10 - Essential (primary) hypertension Plan: Reinforced low sodium diet - goal is systolic BP of at least 130 to 140 mm or less Continue Atenolol 25 mg QD (4) GERD without esophagitis: Code(s): K21.9 - Gastro-esophageal reflux disease without esophagitis Plan: Dietary restrictions reinforced Continue Famotidine 20 mg BID PRN (5) Generalized pruritus: Code(s): L29.9 - Pruritus, unspecified Plan: Continue Hydroxyzine 10 mg Q HS PRN (Rx refilled) and Clotrimazole 1% cream apply to affected areas BID PRN (6) Vitamin D deficiency: Code(s): E55.9 - Vitamin D deficiency, unspecified Plan: Continue Vitamin D2 33757 units once a week (7) Osteoarthritis of cervical spine: Code(s): M47.812 - Spondylosis without myelopathy or radiculopathy, cervical region Qualifiers: Spinal osteoarthritis complication: unspecified spinal osteoarthritis Qualified Code(s): M47.812 - Spondylosis without myelopathy or radiculopathy, cervical region Plan: Continue Tizanidine 4 mg TID PRN (8) Primary osteoarthritis of right shoulder: Comment: Most recent x-rays done in 2017 revealed (+)mild acromioclavicular and minimal glenohumeral degenerative arthritis Code(s): M19.011 - Primary osteoarthritis, right shoulder Plan: Continue Tramadol 50 mg TID PRN Follow up with orthopedics as scheduled - symptoms have improved a lot in the past with cortisone injections and physical therapy when needed (9) Left shoulder pain: Code(s): M25.512 - Pain in left shoulder Qualifiers: Chronicity: acute Qualified Code(s): M25.512 - Pain in left shoulder Plan: X-rays of the left shoulder done last year revealed (+) mild acromioclavicular degenerative joint changes Will refer him again to orthopedics for further evaluation and management Plan Follow up in 4 months Orders: Orders Complete Blood Count Auto Diff 4 Months D64.9 - Anemia, unspecified Comprehensive Umpire. Panel Fast 4 Months E78.00 - Pure hypercholesterolemia, unspecified UA CC w/rflx Micro + Cult 4 Months R30.0 - Dysuria Vitamin D 25-OH Total 4 Months E55.9 - Vitamin D deficiency, unspecified Hemoglobin A1c 4 Months R73.01 - Impaired fasting glucose Lipid Panel 4 Months E78.00 - Pure hypercholesterolemia, unspecified TSH reflex Free T4 4 Months E78.00 - Pure hypercholesterolemia, unspecified Referrals Orthopedics Referral M25.512 - Pain in left shoulder Medications: Refilled hydroxyzine HCl 10 mg PO BEDTIME PRN 90 tabs 3RF itching and/or anxiety 90 days L29.9 - Pruritus, unspecified Coding Level of Care Code Est Pt Level 4 (62758) Diagnoses Mixed hyperlipidemia E78.2 Type 2 diabetes mellitus with hyperglycemia, without long-term current use of i nsulin E11.65 Diabetes mellitus type: type 2 Diabetes mellitus nursing home insulin use: without nursing home use Diabetes mellitus complication status: with hyperglycemia Benign essential hypertension I10 GERD without esophagitis K21.9 Generalized pruritus L29.9 Vitamin D deficiency E55.9 Osteoarthritis of cervical spine, unspecified spinal osteoarthritis complication status M47.812 Spinal osteoarthritis complication: unspecified spinal osteoarthritis Primary osteoarthritis of right shoulder M19.011 Acute pain of left shoulder M25.512 Chronicity: acute
== END 2023-05-20 14:36 | disposition home or self-care (01) ==
PROVIDERS: PCP Internal Medicine; Visit Provider Internal Medicine
DX: E78.2 Mixed hyperlipidemia (principal); E11.65 Type 2 diabetes mellitus with hyperglycemia; I10 Essential (primary) hypertension; K21.9 Gastro-esophageal reflux disease without esophagitis; L29.9 Pruritus, unspecified; E55.9 Vitamin D deficiency, unspecified; M47.812 Spondylosis without myelopathy or radiculopathy, cervical region; M19.011 Primary osteoarthritis, right shoulder; M25.512 Pain in left shoulder
CPT/HCPCS: 99214

== ENCOUNTER 2023-06-04 14:06 | Outpatient (AMB) | payer MEDICARE, SELFPAY ==
[2023-06-04 14:08] VITALS: BMI 26.5
--- NOTE | 2023-06-04 14:08 | A.OFFVIS_ITS ---
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 The patient states that he injured his left shoulder last year while trimming his bushes. He lifted his tremor and had acute onset of pain. The patient states that since that time he has had difficulty lifting his left hand above shoulder height. He has had cortisone injections given into both of his shoulders. The most recent injection gave him minimal relief. He has also done physical therapy exercises over the last 6 weeks which aggravated his pain. He has tried Tylenol, tramadol and anti-inflammatory medicines which gave him minimal relief. Allergies prochlorperazine [From Compazine] Allergy (Intermediate, Verified 06/04/23 14:19) loss of control of tongue muscle (tongue twisted) Medication List - Last Reconciled 06/04/23 by Galo Tripp MD atenolol 25 mg PO DAILY atorvastatin 10 mg PO DAILY 90 days blood sugar diagnostic (Accu-Chek Anastasia Plus test strips) As directed once a day blood-glucose meter As directed cholecalciferol (vitamin D3) 1,250 mcg PO QWEEK cyclobenzaprine 5 mg PO BID PRN famotidine 40 mg (2 x 20 mg) PO BID fenofibrate 160 mg PO DAILY hydroxyzine HCl 10 mg PO BEDTIME PRN 90 days lancets (Accu-Chek Softclix Lancets) As directed once a day omega-3 fatty acids-fish oil 360-1,200 mg (Fish Oil) 1 cap PO BID tramadol 50 mg PO TID PRN PFSH Medical History Diabetes mellitus COVID-19 vaccine series completed Recurrent cold sores Renal insufficiency 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 Sister No problems noted. Son No problems noted. Social History (Updated 06/04/23 @ 14:20 by Mary Mcclelland CMA) Housing: House Alcohol intake: current Alcohol intake frequency: holidays/special occasions o nly Patient Tobacco Use Status: Former Tobacco user e-Cigarette/Vaping Use: Never Used Second Hand Smoke Exposure: Yes service: No Current occupational status: retired Current occupation: Right hand dominate Cognitive needs: No Hearing needs: No Vision needs: Yes Physical Exam Vital Signs: BMI result Body Mass Index 26.5 Const Other: Well-nourished well-developed very friendly male awake alert and oriented x3 in no acute distress Extrem Other: Bilateral upper extremity examination shows good capillary refill, no skin lesions noted, normal sensation light touch Left shoulder examination shows decreased range of motion when compared to his right shoulder, 4/5 strength with supraspinatus testing, positive impingement signs, tenderness over his acromioclavicular joint, no instability Results Reviewed Results Reviewed: X-rays of the patient's left shoulder show severe acromioclavicular joint narrowing, a type 2 acromion, no acute bony abnormalities Assessment & Plan Assessment & Plan (1) Pain of left shoulder region: Code(s): M25.512 - Pain in left shoulder Plan Mr. Hartman presents with progressively worsening left shoulder pain and weakness most likely due to a full-thickness rotator cuff tear. Thus, I will send the patient for an MRI of his left shoulder for further evaluation. I will see him back once the MRI is completed to discuss the findings and treatment options. He will continue with his range of motion exercises in the meantime to prevent stiffness. Feel free to call me at any time should questions regarding his orthopedic management arise. Thank you very much for asking me to see this very friendly gentleman. I spent 22 minutes in reviewing the patient's records and imaging studies, seeing the patient and documenting in the medical record. Orders: Orders MR shoulder LT wo con Today M25.512 - Pain in left shoulder XR shoulder LT min 2V Today M25.512 - Pain in left shoulder Coding Level of Care Code Est Pt Level 2 (42605) Diagnoses Pain of left shoulder region M25.512
== END 2023-06-04 14:32 | disposition home or self-care (01) ==
PROVIDERS: PCP Internal Medicine; Visit Provider Orthopaedic Surgery
DX: M25.512 Pain in left shoulder (principal)
CPT/HCPCS: 99213

== ENCOUNTER 2023-06-04 15:38 | Outpatient (REF) | payer MEDICARE, SELFPAY ==
--- NOTE | ~2023-06-04 | XR_ITS ---
EXAMINATION: XR SHOULDER, LEFT CLINICAL INFORMATION: Pain in left shoulder COMPARISON: 05/17/2021 TECHNIQUE: Two views of the left shoulder. FINDINGS: No fracture or malalignment. Again noted is osteophyte formation and chondrocalcinosis at the acromioclavicular joint. The subacromial space is maintained. The humeral head is well-positioned over the glenoid. No suspicious osseous lesion. No evidence of calcific tendinopathy. XR/XR shoulder LT min 2V IMPRESSION: * Mild osteoarthritis and chondrocalcinosis of the acromioclavicular joint. * No new observations at the left shoulder compared to 05/17/2021.
== END 2023-06-04 15:39 | disposition home or self-care (01) ==
LOC: HO.HOSX 15:38
PROVIDERS: Visit Provider Orthopaedic Surgery
DX: M25.512 Pain in left shoulder (principal); M62.81 Muscle weakness (generalized); Z79.899 Other long term (current) drug therapy
CPT/HCPCS: 73030; 99212

== ENCOUNTER 2023-06-09 13:08 | Outpatient (REF) | payer MEDICARE, SELFPAY ==
--- NOTE | ~2023-06-09 | US_ITS ---
EXAMINATION: US RETROPERITONEAL LIMITED (RENAL ONLY) CLINICAL INFORMATION: Calculus of kidney. COMPARISON: Renal ultrasound 05/23/2022 and 05/28/2021. TECHNIQUE: Real-time imaging of the kidneys. FINDINGS: RIGHT KIDNEY: 10.9 x 5.5 x 4.6 cm (SAG x AP x TRV). The kidney is normal in size, contour, and echogenicity. Renal cortical thickness is normal. No calculi or focal parenchymal lesions. No hydronephrosis. LEFT KIDNEY: 11.6 x 5.1 x 4.4 cm (SAG x AP x TRV). The kidney is normal in size, contour, and echogenicity. Renal cortical thickness is normal. No focal parenchymal lesions or hydronephrosis. 4 mm nonobstructing calculus in the lower pole US/US renal BI IMPRESSION: 4 mm nonobstructing calculus in the left lower kidney. No hydronephrosis.
== END 2023-06-09 13:09 | disposition home or self-care (01) ==
LOC: HO.US 13:08
PROVIDERS: PCP Internal Medicine; Visit Provider Urology
DX: N20.0 Calculus of kidney (principal)
CPT/HCPCS: 76775

== ENCOUNTER 2023-06-24 13:25 | Outpatient (AMB) | payer MEDICARE, SELFPAY ==
--- NOTE | 2023-06-24 13:41 | A.OFFVIS_ITS ---
Intake Intake Visit Reasons: 1Y US(SET)Confirmed Intake Note: Patient is Present for Follow Up Urology Medication: None Antibiotic Allergies: None Blood Thinners: None Allergies prochlorperazine [From Compazine] Allergy (Intermediate, Verified 06/04/23 14:19) loss of control of tongue muscle (tongue twisted) Medication List - Last Reconciled 06/24/23 by Arcadio Vitale MD atenolol 25 mg PO DAILY atorvastatin 10 mg PO DAILY 90 days blood sugar diagnostic (Accu-Chek Anastasia Plus test strips) As directed once a day blood-glucose meter As directed cholecalciferol (vitamin D3) 1,250 mcg PO QWEEK cyclobenzaprine 5 mg PO BID PRN famotidine 40 mg (2 x 20 mg) PO BID fenofibrate 160 mg PO DAILY hydroxyzine HCl 10 mg PO BEDTIME PRN 90 days lancets (Accu-Chek Softclix Lancets) As directed once a day omega-3 fatty acids-fish oil 360-1,200 mg (Fish Oil) 1 cap PO BID tramadol 50 mg PO TID PRN HPI HPI Comments History of Present Illness Details Carina is a pleasant male. He is a patient of Dr. Cabral. Seen for the following urologic conditions - nephrolithiasis Discussed imaging results Encourage lemon fluid diet Continue yearly evaluation Minimal urination issues Nephrolithiasis - background of diabetes Prior history of renal stone disease - concomitant diagnoses impaired glucose tolerance Management with increased hydration PSA 07/11 1.2, 06/11 1.5 Imaging - 06/12 renal ultrasound multiple stones bilateral maximum 6 mm - 06/13 renal ultrasound small twinkle le ft side - 05/17 renal ultrasound small caruncle l eft side PFSH Medical History Diabetes mellitus COVID-19 vaccine series completed Recurrent cold sores Renal insufficiency 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 Sister No problems noted. Son No problems noted. Social History Housing: House Alcohol intake: current Alcohol intake frequency: holidays/special occasions only Patient Tobacco Use Status: Former Tobacco user e-Cigarette/Vaping Use: Never Used Second Hand Smoke Exposure: Yes service: No Current occupational status: retired Current occupation: Right hand dominate Cognitive needs: No Hearing needs: No Vision needs: Yes Review of Systems Const Denies chills and Denies fever(s) Card Reports no additional complaints and Denies syncope Resp Denies cough GI Denies abdominal pain and Denies heartburn Reports as per HPI and Denies change in libido Neuro Denies syncope Psych Denies change in libido Endo Denies change in libido Physical Exam Const General: cooperative, healthy appearing, comfortable and no acute distress Orientation/consciousness: patient oriented x3 HEENT Face and sinus: Yes normal facial exam Mouth: moist mucous membranes Neck Neck: Yes normal visual inspection, Yes full ROM and Yes trachea midline Chest Chest palpation & inspection: normal inspection of the chest Resp Effort & Inspection: normal respiratory effort, able to speak in complete sentences and no respiratory distress GI Inspection: Yes normal to inspection Back/Spine/Pelvis Cervical Spine: normal cervical lordosis Thoracic/Lumbar Spine: thoracic and lumbar spine normal to inspection Skin General skin exam: no rashes or lesions noted Neuro General: patient oriented x3, gait normal, tone normal and moves all extremities Extrem General: Yes normal to inspection and Yes capillary refill normal Assessment & Plan Assessment & Plan (1) Bilateral nephrolithiasis: Code(s): N20.0 - Calculus of kidney Plan 12 month follow-up ultrasound Orders: Orders US renal BI 12 Months N20.0 - Calculus of kidney Patient Instructions: Imaging studies, laboratory and physical exam results were discussed and reviewed in detail. No major barriers to patient understanding were identified. An opportunity to ask questions regarding the treatment plan was provided. All questions were answered. The patient expressed understanding and agreement with the above treatment plan. The patient is aware they should contact our office by phone for worsening of their current condition or the appearance of new urologic symptoms. Compliance is encouraged with any medications and followup testing that is ordered. It is a privilege to participate in the urologic care of your patient. If you have any questions or concerns regarding treatment for the above conditions, or other urologic issues, please do not hesitate to contact me. The office telephone contact is [phone]. This note is constructed using voice recognition software. While every effort has been made to ensure accuracy hospice case manager errors may have been included. Yours sincerely, Dr Arcadio Vitale MD, [facility] - Urology Providers of Expert, Compassionate Care for the Genitourinary System Coding Level of Care Code Est Pt Level 4 (94831) Diagnoses Bilateral nephrolithiasis N20.0
== END 2023-06-24 13:55 | disposition home or self-care (01) ==
PROVIDERS: PCP Internal Medicine; Visit Provider Urology
DX: N20.0 Calculus of kidney (principal)
CPT/HCPCS: 99213

== ENCOUNTER → 2023-06-24 13:25 | Outpatient (BNVA) | payer MEDICARE, SELFPAY | PROVIDERS: Visit Provider Urology | DX: N20.0 Calculus of kidney (principal) | CPT/HCPCS: 99212 ==

== ENCOUNTER 2023-07-03 16:13 | Outpatient (REF) | payer MEDICARE, SELFPAY ==
--- NOTE | ~2023-07-03 | MR_ITS ---
EXAMINATION: MR SHOULDER WITHOUT CONTRAST, LEFT CLINICAL INFORMATION: Pain left shoulder. COMPARISON: X-ray the left shoulder May 2023. TECHNIQUE: MRI of the shoulder without contrast was performed on a high-field scanner. FINDINGS: ROTATOR CUFF: Supraspinatus: There is a full-thickness insertional tear resulting in retraction of the torn portion of tendon and a tendon defect measuring 1.8 cm transverse and 1.6 cm AP. There is a small tendon fragment present within the tendon gap at the insertion. There is additional longitudinal increased signal within the retracted tendon indicative of some additional intrasubstance interstitial partial tearing but no additional measurable defect. Muscle is normal without atrophy or fatty infiltration. Infraspinatus: There is heterogeneous increased signal beginning at the musculotendinous junction with scattered areas of increased signal also extending throughout the tendon indicative of areas of intrasubstance partial tearing but no measurable defect or tendon retraction. No atrophy or fatty infiltration of muscle. Teres minor normal. Subscapularis: Normal. BICEPS: Normal. CORACOACROMIAL ARCH: The undersurface of the acromion is curved with no subacromial spur. There is [id number] hypertrophic osteoarthritis of acromioclavicular joint. BURSA: Increased fluid in subacromial subdeltoid bursa related to rotator cuff tear. LABRUM/CAPSULE: Normal. GLENOHUMERAL JOINT/MARROW: Minimal enthesopathic cystic change in the lesser tuberosity and greater tuberosity. Articular cartilage normal. Joint fluid volume normal. MR/MR shoulder LT wo con IMPRESSION: 1. Moderate size full-thickness insertional tear of the supraspinatus tendon. 2. Scattered small areas of partial tearing of the infraspinatus tendon and its musculotendinous junction without any measurable defect. 3. [id number]-ut-[id number] hypertrophic osteoarthritis of the acromioclavicular joint.
== END 2023-07-03 16:14 | disposition home or self-care (01) ==
LOC: HO.MRI 16:13
PROVIDERS: PCP Internal Medicine; Visit Provider Orthopaedic Surgery
DX: M25.512 Pain in left shoulder (principal)
CPT/HCPCS: 73221

== ENCOUNTER 2023-07-17 15:15 | Outpatient (AMB) | payer MEDICARE, SELFPAY ==
--- NOTE | 2023-07-17 15:27 | MHC.OFFVIS ---
Vital Signs 07/17/23 15:28 Height 5 ft 5 in Weight 159 lb BMI 26.5 Intake Visit Reasons: OV - LT shoulder MRI review Intake Note: Carina is a 73 year old male who presents for his Left shoulder MRI review. The patient reports mild intermittent discomfort in his left shoulder. He has been doing zqkqg-[id number] exercises and states that his strength has improved significantly since his last visit. He denies any numbness or tingling either upper extremity. Allergies prochlorperazine [From Compazine] Allergy (Intermediate, Verified 07/17/23 15:28) loss of control of tongue muscle (tongue twisted) Medication List - Last Reconciled 07/18/23 by Galo Tripp MD atenolol 25 mg PO DAILY atorvastatin 10 mg PO DAILY 90 days blood sugar diagnostic (Accu-Chek Anastasia Plus test strips) As directed once a day blood-glucose meter As directed cholecalciferol (vitamin D3) 1,250 mcg PO QWEEK cyclobenzaprine 5 mg PO BID PRN famotidine 40 mg (2 x 20 mg) PO BID fenofibrate 160 mg PO DAILY hydroxyzine HCl 10 mg PO BEDTIME PRN 90 days lancets (Accu-Chek Softclix Lancets) As directed once a day omega-3 fatty acids-fish oil 360-1,200 mg (Fish Oil) 1 cap PO BID tramadol 50 mg PO TID PRN PFSH Medical History Diabetes mellitus COVID-19 vaccine series completed Recurrent cold sores Renal insufficiency 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 Sister No problems noted. Son No problems noted. Social History Housing: House Alcohol intake: current Alcohol intake frequency: holidays/special occasions only Patient Tobacco Use Status: Former Tobacco user e-Cigarette/Vaping Use: Never Used Second Hand Smoke Exposure: Yes service: No Current occupational status: retired Current occupation: Right hand dominate Cognitive needs: No Hearing needs: No Vision needs: Yes Physical Exam Vital Signs: BMI result Body Mass Index 26.5 Const Other: Well-nourished well-developed very friendly male awake alert and oriented x3 in no acute distress Extrem Other: Bilateral upper extremity examination shows good capillary refill, no skin lesions noted, normal sensation light touch Left shoulder examination shows almost full range of motion when compared to his right shoulder, 4/5 strength with supraspinatus testing, positive impingement signs, tenderness over his acromioclavicular joint, no instability Results Reviewed Results Reviewed: MRI of the patient's left shoulder shows severe acromioclavicular joint narrowing, a type 2 acromion, a small full-thickness tear of the supraspinatus tendon Assessment & Plan Assessment & Plan (1) Pain of left shoulder region: Code(s): M25.512 - Pain in left shoulder Category: Medical Plan Mr. Hartman presents with left shoulder pain and weakness due to impingement syndrome, acromioclavicular joint arthritis and a small full-thickness rotator cuff tear. I had a lengthy discussion with the patient regarding the treatment options. At this point the patient's symptoms are tolerable to him. He wishes to hold off on surgery. He does understand that his rotator cuff tear can increase in size and even become irreparable over time. The do's and don'ts of lifting were discussed at length with the patient. The patient will contact me prior to his follow-up appointment in 3 months should his symptoms worsen in any way. Feel free to call me at any time should questions regarding his orthopedic management arise. I spent 22 minutes in reviewing the patient's records and imaging studies, seeing the patient and documenting in the medical record. Coding Level of Care Code Est Pt Level 2 (31757) Diagnoses Pain of left shoulder region M25.512
[2023-07-17 15:28] VITALS: BMI 26.5
== END 2023-07-17 15:40 | disposition home or self-care (01) ==
PROVIDERS: PCP Internal Medicine; Visit Provider Orthopaedic Surgery
DX: M25.512 Pain in left shoulder (principal)
CPT/HCPCS: 99213

== ENCOUNTER → 2023-07-17 15:15 | Outpatient (BNVA) | payer MEDICARE, SELFPAY | PROVIDERS: PCP Internal Medicine; Visit Provider Orthopaedic Surgery | DX: M25.512 Pain in left shoulder (principal) | CPT/HCPCS: 99212 ==

== ENCOUNTER 2023-09-17 07:56 | Outpatient (REF) | payer MEDICARE, SELFPAY ==
[2023-09-17 08:11] LABS: MANUAL DIFF FLAG NO
[2023-09-17 08:15] LABS: Basophils Absolute Auto 0.1 X10*3/uL (0.0-0.2); Basophils Percent Auto 0.6 % (0-2); Eosinophils Absolute Auto 0.3 X10*3/uL (0.0-0.4); Hematocrit 48.6 % (42.0-52.0); Hemoglobin 16.8 g/dl (14.0-18.0); Imm Gran Abs Auto 0.03 X10*3/uL (0.00-0.03); Imm Gran Pct Auto 0.4 % (0.0-0.4); Lymphocytes Absolute Auto 2.5 X10*3/uL (1.2-4.9); Lymphocytes Percent Auto 30.9 % (20-40); Mean Corpuscular HGB Conc 34.6 g/dl (31.0-36.0); Mean Corpuscular Hemoglobin 28.4 pg (27.0-33.0); Mean Corpuscular Volume 82.1 fL (80.0-98.0); Mean Platelet Volume 9.5 fL (9.4-12.4); Monocytes Absolute Auto 0.6 X10*3/uL (0.1-1.2); Monocytes Percent Auto 7.3 % (2-11); Neutrophils Absolute Auto 4.6 x10*3/uL (2.0-8.3); Neutrophils Percent Auto 56.8 % (45-73); Platelet Count 266 X10*3/uL (160-400); Red Blood Count 5.92 X10*6/uL (4.60-5.80)
[2023-09-17 08:24] LABS: Estimated Average Glucose 146 mg/dL; Hemoglobin A1c % 6.7 % (<6.0)
[2023-09-17 08:54] LABS: Alanine Aminotransferase 38 U/L (0-40); Albumin Level 4.2 g/dL (3.5-5.0); Alkaline Phosphatase 99 U/L (39-117); Anion Gap 14 (12-20); Aspartate Amino Transferase 57 U/L (5-37); Blood Urea Nitrogen 16 mg/dL (9-16); Calcium 9.7 mg/dL (8.4-10.2); Carbon Dioxide 23 mmol/L (22-29); Chloride 105 mmol/L (96-108); Cholesterol 160 mg/dL (<200); Estimated Glomerular Filt Rate > 60; Glucose Fasting 121 mg/dL (60-99); HDL Cholesterol 39 mg/dL (>40); LDL Cholesterol Calculated 84 mg/dL (<100); Sodium 138 mmol/L (135-145); Total Protein 7.4 g/dL (6.5-8.0); Triglycerides 188 mg/dL (<150)
[2023-09-17 09:04] LABS: Appearance Urine Clear; Color Urine Dark Yellow; Glucose Urine UA Negative (Negative); Leukocyte Esterase Urine Negative (Negative); Nitrite Urine Negative (Negative); PH 5.5 (5.0-9.0); Urine Blood Negative (Negative); Urine Ketones Negative (Negative); Urine Protein Negative (Neg-Trace)
[2023-09-17 09:11] LABS: TSH reflex Free T4 1.66 uIU/mL (0.32-4.0); Vitamin D 25-OH Total 38.1 ng/mL (>30)
== END 2023-09-17 07:57 | disposition home or self-care (01) ==
LOC: HO.LAB 07:56
PROVIDERS: PCP Internal Medicine; Visit Provider Internal Medicine
DX: D64.9 Anemia, unspecified (principal); E55.9 Vitamin D deficiency, unspecified; R30.0 Dysuria; E78.00 Pure hypercholesterolemia, unspecified; R73.01 Impaired fasting glucose
CPT/HCPCS: 36415; 80053; 80061; 81003; 82306; 83036; 84443; 85025

== ENCOUNTER 2023-09-22 12:52 | Outpatient (AMB) | payer MEDICARE, SELFPAY ==
--- NOTE | 2023-09-22 13:27 | MHC.PC.OV ---
Vital Signs 09/22/23 13:31 Height 5 ft 5 in Weight 158 lb 2 oz BMI 26.3 BP 100/70 Blood Pressure Location Lt brachial Position Sitting Pulse 60 Pulse Source Pulse Oximeter Pulse Oximetry (%) 98 Oxygen Delivery Method Room Air Intake Visit Reasons: hyperlipidemia, IFG, OA, HTN - see comments Intake Note: Patient is here to follow up on HLD, IFG, OA, HTN Auto Customize Painter Required: No Cosmetic Consultant: Not Required per policy Accompanied by: Self / Same As Patient Allergies prochlorperazine [From Compazine] Allergy (Intermediate, Verified 09/22/23 14:14) loss of control of tongue muscle (tongue twisted) Medication List - Last Reconciled 09/22/23 by Jordy Cabral MD atenolol 25 mg PO DAILY atorvastatin 10 mg PO DAILY 90 days blood sugar diagnostic (Accu-Chek Anastasia Plus test strips) As directed once a day blood-glucose meter As directed cholecalciferol (vitamin D3) 1,250 mcg PO QWEEK famotidine 40 mg (2 x 20 mg) PO BID fenofibrate 160 mg PO DAILY hydroxyzine HCl 10 mg PO BEDTIME PRN 90 days lancets (Accu-Chek Softclix Lancets) As directed once a day omega-3 fatty acids-fish oil 360-1,200 mg (Fish Oil) 1 cap PO BID tramadol 50 mg PO TID PRN Tobacco use date assessed: 09/22/23 Fall risk assessment: No Falls in past year Last assessed Fall Risk: 09/22/23 Dental Screening Dental Screen Date: 05/20/23 HPI hyperlipidemia, IFG, OA, HTN - see comments HPI Details Patient comes in today for his follow up visit States that he feels okay He denies any headaches or dizziness Denies any chest pains, no shortness of breath No nausea/ vomiting, no abdominal pain No change in bowel habits noted States that he still has chronic left shoulder pain He had an MRI of the left shoulder done a couple of months ago in June 2023 that revealed (+) a moderate-sized full-thickness insertional tear of the supraspinatus tendon and scattered small areas of partial tearing of the infraspinatus tendon. 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 Sister No problems noted. Son No problems noted. Social History Housing: House Alcohol intake: current Alcohol intake frequency: holidays/special occasions only Patient Tobacco Use Status: Former Tobacco user e-Cigarette/Vaping Use: Never Used Second Hand Smoke Exposure: Yes service: No Current occupational status: retired Current occupation: Right hand dominate Cognitive needs: No Hearing needs: No Vision needs: Yes Questionnaire Thrive Questionnaire Date Thrive assessed: 05/20/23 [place]-7 AMB Questionnaire [place]-7 Date [place] - 7 assessed: 05/20/23 Source: Developed by Drs. Jayden Russ, Clara Mcgee, Prabhakar Glover and colleagues, with an educational kirk from [employer]. Review of Systems Const Denies chills, Denies fatigue, Denies fever(s) and Denies headache(s) ENT Denies dysphagia, Denies dizziness, Denies otalgia, Denies headache(s), Reports neck pain, Denies odynophagia and Denies sore throat Card Denies chest pain, Denies palpitations and Denies dyspnea Resp Denies cough and Denies dyspnea GI Denies abdominal pain, Denies constipation, Denies dysphagia, Denies heartburn, Denies diarrhea, Denies nausea, Denies odynophagia and Denies vomiting Denies dysuria, Denies nocturia and Denies urinary frequency Musc Reports arthralgias (both shoulders, worse on the left side) and Reports neck pain Skin/Breast Denies rash Neuro Denies dizziness and Denies headache(s) Endo Denies fatigue and Denies palpitations Physical exam (Primary Care) Vital Signs: Last Vital Signs Pulse 60 09/22/23 13:31 BP 100/70 09/22/23 13:31 Pulse Ox 98 09/22/23 13:31 Oxygen Delivery Method Room Air 09/22/23 13:31 BMI result Body Mass Index 26.3 Tobacco/Smoking Status: Tobacco use Status Tobacco use date assessed 09/22/23 09/22/23 13:36 Patient Tobacco Use Status Former Tobacco user 09/22/23 13:36 e-Cigarette/Vaping Use Never Used 09/22/23 13:36 Thrive Assessment: Date of Thrive Assessment Date Thrive assessed 05/20/23 09/22/23 13:36 Const General: no acute distress and alert HENMT Ears: TM's normal bilaterally and EAC's normal Throat: Yes posterior oropharynx normal and Yes tonsils normal (no TP congestion noted) Neck Neck: Yes no lymphadenopathy and Yes supple Thyroid: Thyroid normal Resp Auscultation: clear to auscultation bilaterally, no rales and no wheezes Cardio Rate: regular rate Rhythm: regular rhythm Heart sounds: no murmurs GI Palpation (GI): Soft to palpation and nontender Auscultation: normal bowel sounds General: Yes no CVA tenderness Back/Spine/Pelvis Back: no CVA tenderness Cervical Spine: Cervical spine tenderness (mild) Skin Rashes: no rashes Extrem General: Yes no clubbing, cyanosis or edema Right upper extremity: shoulder/upper arm Details: tenderness Left upper extremity: shoulder/upper arm (increased) Details: tenderness; no swelling Results Reviewed Results Reviewed: Laboratory Tests 09/17/23 09/17/23 08:05 08:09 WBC 8.0 Hgb 16.8 Hct 48.6 Plt Count 266 Sodium 138 Potassium 4.0 Creatinine 0.99 Estimated GFR > 60 Fasting Glucose 121 H Hemoglobin A1c % 6.7 H Calcium 9.7 AST 57 H ALT 38 Triglycerides 188 H Cholesterol 160 LDL Cholesterol, Calc 84 HDL Cholesterol 39 L 25-OH Vitamin D Total 38.1 TSH 1.66 Ur Specific [place] 1.020 Urine Protein Negative Urine Glucose (UA) Negative Urine Blood Negative Urine Nitrite Negative Ur Leukocyte Esterase Negative Assessment and Plan Assessment & Plan (1) Mixed hyperlipidemia: Code(s): E78.2 - Mixed hyperlipidemia Plan: Results of his labs done a few days ago reviewed and discussed with patient - he is advised that his cholesterol levels have improved slightly from previous Reinforced low cholesterol diet Continue Atorvastatin 10 mg QD and Fenofibrate 160 mg QD Will recheck his labs and fasting lipids in 4 months for follow up (2) Diabetes mellitus: Code(s): E11.9 - Type 2 diabetes mellitus without complications Qualifiers: Diabetes mellitus complication status: with hyperglycemia Diabetes mellitus intermodal dispatcher insulin use: without intermodal dispatcher use Diabetes mellitus type: type 2 Qualified Code(s): E11.65 - Type 2 diabetes mellitus with hyperglycemia Plan: His HgbA1c has increased slightly again to 6.7% on his recent labs It was previously at at 6.5% and was at 6.2% late last year - goal is <6.0 to 6.2% or less if he wants to continue to avoid taking any Rx Reinforced diabetic diet Have advised patient that his HgbA1c has been steadily rising over the past year and to slow down the progression of his diabetes, I would recommend he start taking some medication at this time Will go ahead and start him on Metformin ER 500 mg QPM (3) Benign essential hypertension: Code(s): I10 - Essential (primary) hypertension Plan: Reinforced low sodium diet - goal is systolic BP of at least 130 to 140 mm or less Continue Atenolol 25 mg QD (4) GERD without esophagitis: Code(s): K21.9 - Gastro-esophageal reflux disease without esophagitis Plan: Dietary restrictions reinforced Continue Famotidine 20 mg BID PRN (5) Generalized pruritus: Code(s): L29.9 - Pruritus, unspecified Plan: Continue Hydroxyzine 10 mg Q HS PRN and Clotrimazole 1% cream apply to affected areas BID PRN (6) Elevated LFTs: Code(s): R79.89 - Other specified abnormal findings of blood chemistry Plan: Have advised patient that his LFTs (especially his ALT) remain elevated on his recent labs Will go ahead and send him for an abdominal ultrasound for further evaluation (7) Vitamin D deficiency: Code(s): E55.9 - Vitamin D deficiency, unspecified Plan: Continue Vitamin D2 28912 units once a week (8) Osteoarthritis of cervical spine: Code(s): M47.812 - Spondylosis without myelopathy or radiculopathy, cervical region Qualifiers: Spinal osteoarthritis complication: unspecified spinal osteoarthritis Qualified Code(s): M47.812 - Spondylosis without myelopathy or radiculopathy, cervical region Plan: Continue Tizanidine 4 mg TID PRN (9) Primary osteoarthritis of right shoulder: Comment: Most recent x-rays done in 2017 revealed (+)mild acromioclavicular and minimal glenohumeral degenerative arthritis Code(s): M19.011 - Primary osteoarthritis, right shoulder Plan: Continue Tramadol 50 mg TID PRN Patient states that his shoulder symptoms have improved a lot with cortisone injections and physical therapy when needed in the past Follow-up with orthopedics as scheduled (10) Left shoulder pain: Code(s): M25.512 - Pain in left shoulder Qualifiers: Chronicity: acute Qualified Code(s): M25.512 - Pain in left shoulder Plan: X-rays of the left shoulder done last year revealed (+) mild acromioclavicular degenerative joint changes He had an MRI of the shoulder done a couple of months ago in June 2023 that revealed a moderate-size full thickness insertional tear of the supraspinatus tendon, scattered small areas of partial tearing of the infraspinatus tendon and mild to moderate hypertrophic osteoarthritis of the acromioclavicular joint He has been advised by Orthopedics to try conservative measures for his shoulder refers Follow-up with orthopedics as scheduled (11) Overweight (BMI 25.0-29.9): Code(s): E66.3 - Overweight Plan: Reinforced diet/exercise as tolerated /lose weight Plan Follow up in 3 months Orders: Orders Lipid Panel 3 Months E78.00 - Pure hypercholesterolemia, unspecified Complete Blood Count Auto Diff 3 Months D64.9 - Anemia, unspecified TSH reflex Free T4 3 Months E78.00 - Pure hypercholesterolemia, unspecified US abdomen complete 09/22/23 R79.89 - Other specified abnormal findings of blood chemistry Hemoglobin A1c 3 Months E11.9 - Type 2 diabetes mellitus without complications Comprehensive [place]. Panel Fast 3 Months E78.00 - Pure hypercholesterolemia, unspecified UA CC w/rflx Micro + Cult 3 Months R30.0 - Dysuria Vitamin D 25-OH Total 3 Months E55.9 - Vitamin D deficiency, unspecified Medications: New metformin ER 500 mg PO QPM 90 tabs 1RF 90 days E11.65 - Type 2 diabetes mellitus with hyperglycemia Refilled hydroxyzine HCl 10 mg PO BEDTIME PRN 90 tabs 3RF itching and/or anxiety 90 days L29.9 - Pruritus, unspecified Coding Level of Care Code Est Pt Level 4 (69529) Complex EM visit Add On G2211 Diagnoses Mixed hyperlipidemia E78.2 Type 2 diabetes mellitus with hyperglycemia, without long-term current use of insulin E11.65 Diabetes mellitus complication status: with hyperglycemia Diabetes mellitus intermodal dispatcher insulin use: without fdc use Diabetes mellitus type: type 2 Benign essential hypertension I10 GERD without esophagitis K21.9 Generalized pruritus L29.9 Elevated LFTs R79.89 Vitamin D deficiency E55.9 Osteoarthritis of cervical spine, unspecified spinal osteoarthritis complication status M47.812 Spinal osteoarthritis complication: unspecified spinal osteoarthritis Primary osteoarthritis of right shoulder M19.011 Acute pain of left shoulder M25.512 Chronicity: acute Overweight (BMI 25.0-29.9) E66.3
[2023-09-22 13:31] VITALS: BP 100/70; PULSE 60; O2SAT 98; BMI 26.3
== END 2023-09-22 14:31 | disposition home or self-care (01) ==
PROVIDERS: PCP Internal Medicine; Visit Provider Internal Medicine
DX: E78.2 Mixed hyperlipidemia (principal); E11.65 Type 2 diabetes mellitus with hyperglycemia; I10 Essential (primary) hypertension; K21.9 Gastro-esophageal reflux disease without esophagitis; L29.9 Pruritus, unspecified; R79.89 Other specified abnormal findings of blood chemistry; E55.9 Vitamin D deficiency, unspecified; M47.812 Spondylosis without myelopathy or radiculopathy, cervical region; M19.011 Primary osteoarthritis, right shoulder; M25.512 Pain in left shoulder; E66.3 Overweight
CPT/HCPCS: 99214; G2211

== ENCOUNTER 2023-10-09 08:34 | Outpatient (REF) | payer MEDICARE, SELFPAY ==
--- NOTE | ~2023-10-09 | US_ITS ---
EXAMINATION: US ABDOMEN COMPLETE CLINICAL INFORMATION: Other specified abnormal findings of blood chemistry. COMPARISON: Renal ultrasound 06/09/2023 and 05/23/2022. TECHNIQUE: Real-time imaging of the abdominal viscera. FINDINGS: PANCREAS: Normal. ABDOMINAL AORTA: The proximal, mid, and distal segments are normal in caliber. INFERIOR VENA CAVA: Visualized portions are normal. LIVER: The liver is normal in size. The liver contour is normal. Moderately increased hepatic echogenicity which can be seen in the setting of hepatic steatosis or underlying liver disease. No focal hepatic lesion. There is no intrahepatic biliary duct dilatation seen. GALLBLADDER: Normal. The gallbladder is physiologically distended without evidence of stones, sludge, polyps, wall thickening or pericholecystic fluid. COMMON BILE DUCT: Normal in caliber measuring 0.4 cm in diameter. RIGHT KIDNEY: Normal. No hydronephrosis. No renal calculi or focal parenchymal lesions. The kidney measures 10.7 cm in maximum dimension. LEFT KIDNEY: 1.4 cm stone in the renal pelvis with proximal, not previously seen, unclear if this could reflect increased size of one of the previously seen stones versus a new stone resulting in proximal caliectasis, also new from prior. No renal calculi or focal parenchymal lesions. The kidney measures 10.7 cm in maximum dimension. SPLEEN: Normal. The spleen measures 11.6 cm in maximum dimension. FREE FLUID: None. US/US abdomen complete IMPRESSION: 1. A 1.4 cm stone in the left renal pelvis with proximal, not previously seen, unclear if this could reflect increased size of one of the previously seen stones versus a new stone resulting in proximal caliectasis without carmen hydronephrosis, also new from prior. Recommend urologic evaluation and management. 2. Moderately increased hepatic echogenicity which can be seen in the setting of hepatic steatosis or underlying liver disease.
== END 2023-10-09 08:35 | disposition home or self-care (01) ==
LOC: HO.US 08:34
PROVIDERS: PCP Internal Medicine; Visit Provider Internal Medicine
DX: R79.89 Other specified abnormal findings of blood chemistry (principal)
CPT/HCPCS: 76700

== ENCOUNTER 2023-10-16 14:06 | Outpatient (AMB) | payer MEDICARE, SELFPAY ==
--- NOTE | 2023-10-16 14:07 | MHC.OFFVIS ---
Intake Visit Reasons: OV-LT shoulder follow up Intake Note: Carina is a 73 year old male who presents to the office today for a left shoulder follow up. The patient states that his left shoulder discomfort has improved significantly since his last appointment. He reports only mild intermittent discomfort in his left shoulder. He does not take any medicines for his discomfort. He denies any significant weakness. Allergies prochlorperazine [From Compazine] Allergy (Intermediate, Verified 10/16/23 14:08) loss of control of tongue muscle (tongue twisted) Medication List - Last Reconciled 10/16/23 by Galo Tripp MD atenolol 25 mg PO DAILY atorvastatin 10 mg PO DAILY 90 days blood sugar diagnostic (Accu-Chek Anastasia Plus test strips) As directed once a day blood-glucose meter As directed cholecalciferol (vitamin D3) 1,250 mcg PO QWEEK famotidine 40 mg (2 x 20 mg) PO BID fenofibrate 160 mg PO DAILY hydroxyzine HCl 10 mg PO BEDTIME PRN 90 days lancets (Accu-Chek Softclix Lancets) As directed once a day metformin ER 500 mg PO QPM 90 days omega-3 fatty acids-fish oil 360-1,200 mg (Fish Oil) 1 cap PO BID tramadol 50 mg PO TID PRN PFSH Medical History (Updated 09/23/23 @ 05:21 by Jordy Cabral MD) Overweight (BMI 25.0-29.9) Diabetes mellitus COVID-19 vaccine series completed Recurrent cold sores Renal insufficiency 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 Sister No problems noted. Son No problems noted. Social History Housing: House Alcohol intake: current Alcohol intake frequency: holidays/special occasions only Patient Tobacco Use Status: Former Tobacco user e-Cigarette/Vaping Use: Never Used Second Hand Smoke Exposure: Yes service: No Current occupational status: retired Current occupation: Right hand dominate Cognitive needs: No Hearing needs: No Vision needs: Yes Physical Exam Const Other: Well-nourished well-developed very friendly male awake alert and oriented x3 in no acute distress Extrem Other: Bilateral upper extremity examination shows good capillary refill, no skin lesions noted, normal sensation light touch Left shoulder examination shows full active range of motion when compared to his left shoulder, positive impingement signs, 4+ out of 5 strength with supraspinatus testing, no instability Results Reviewed Results Reviewed: MRI of the patient's left shoulder show severe acromioclavicular joint narrowing, a type 2 acromion, a small full-thickness tear of the supraspinatus tendon Assessment & Plan Assessment & Plan (1) Pain of left shoulder region: Code(s): M25.512 - Pain in left shoulder Category: Medical Plan Mr. Hartman presents with intermittent left shoulder discomfort due to impingement syndrome and a small full-thickness rotator cuff tear. I had a lengthy discussion with the patient regarding the treatment options. At this point the patient's symptoms are tolerable to him. Wishes to hold off on surgery. Does understand that his rotator cuff tear can become larger in size over time. The do's and don'ts of lifting were discussed at length with the patient. Will follow up with me on an as-needed basis should his symptoms worsen in any way. Feel free to call me at any time should questions regarding his orthopedic management arise. I spent 21 minutes in reviewing the patient's records and imaging studies, seeing the patient and documenting in the medical record. Coding Level of Care Code Est Pt Level 3 (93855) Diagnoses Pain of left shoulder region M25.512
== END 2023-10-16 14:15 | disposition home or self-care (01) ==
PROVIDERS: PCP Internal Medicine; Visit Provider Orthopaedic Surgery
DX: M25.512 Pain in left shoulder (principal)
CPT/HCPCS: 99213

== ENCOUNTER → 2023-10-16 14:06 | Outpatient (BNVA) | payer MEDICARE, SELFPAY | PROVIDERS: PCP Internal Medicine; Visit Provider Orthopaedic Surgery | DX: M25.512 Pain in left shoulder (principal) | CPT/HCPCS: 99212 ==

== ENCOUNTER 2023-12-18 07:47 | Outpatient (REF) | payer MEDICARE, SELFPAY ==
[2023-12-18 08:01] LABS: MANUAL DIFF FLAG NO
[2023-12-18 08:17] LABS: Basophils Absolute Auto 0.1 X10*3/uL (0.0-0.2); Basophils Percent Auto 0.5 % (0-2); Eosinophils Absolute Auto 0.7 X10*3/uL (0.0-0.4); Eosinophils Percent Auto 7.1 % (0-4); Estimated Average Glucose 134 mg/dL; Hemoglobin 16.6 g/dl (14.0-18.0); Hemoglobin A1c % 6.3 % (<6.0); Imm Gran Abs Auto 0.04 X10*3/uL (0.00-0.03); Imm Gran Pct Auto 0.4 % (0.0-0.4); Lymphocytes Absolute Auto 2.9 X10*3/uL (1.2-4.9); Lymphocytes Percent Auto 31.7 % (20-40); Mean Corpuscular HGB Conc 33.2 g/dl (31.0-36.0); Mean Corpuscular Hemoglobin 27.8 pg (27.0-33.0); Mean Corpuscular Volume 83.6 fL (80.0-98.0); Mean Platelet Volume 9.8 fL (9.4-12.4); Monocytes Absolute Auto 0.5 X10*3/uL (0.1-1.2); Monocytes Percent Auto 5.3 % (2-11); Platelet Count 245 X10*3/uL (160-400); Red Blood Count 5.98 X10*6/uL (4.60-5.80); Red Cell Distribution Width 12.7 % (11.0-16.0); Total Hemoglobin (HGBA1C) 4141.6833 umol/L; White Blood Count 9.1 X10*3/uL (4.8-10.8)
[2023-12-18 08:32] LABS: Alanine Aminotransferase 16 U/L (0-40); Albumin Level 4.2 g/dL (3.5-5.0); Alkaline Phosphatase 64 U/L (39-117); Anion Gap 12 (12-20); Aspartate Amino Transferase 30 U/L (5-37); Blood Urea Nitrogen 12 mg/dL (9-16); Carbon Dioxide 26 mmol/L (22-29); Chloride 105 mmol/L (96-108); Cholesterol 183 mg/dL (<200); Estimated Glomerular Filt Rate > 60; Glucose Fasting 103 mg/dL (60-99); HDL Cholesterol 46 mg/dL (>40); LDL Cholesterol Calculated 115 mg/dL (<100); Potassium 4.2 mmol/L (3.3-5.1); Sodium 139 mmol/L (135-145); Total Protein 7.5 g/dL (6.5-8.0); Triglycerides 111 mg/dL (<150)
[2023-12-18 08:40] LABS: Appearance Urine Clear; Color Urine Yellow; Glucose Urine UA Negative (Negative); Leukocyte Esterase Urine Negative (Negative); Nitrite Urine Negative (Negative); Specific Gravity - Urine 1.015 (1.005-1.025); Urine Blood Negative (Negative); Urine Ketones Negative (Negative); Urine Protein Negative (Neg-Trace)
[2023-12-18 08:46] LABS: TSH reflex Free T4 2.77 uIU/mL (0.32-4.0); Vitamin D 25-OH Total 42.3 ng/mL (>30)
== END 2023-12-18 07:48 | disposition home or self-care (01) ==
LOC: HO.LAB 07:47
PROVIDERS: PCP Internal Medicine; Visit Provider Internal Medicine
DX: D64.9 Anemia, unspecified (principal); E78.00 Pure hypercholesterolemia, unspecified; E11.9 Type 2 diabetes mellitus without complications; R30.0 Dysuria; E55.9 Vitamin D deficiency, unspecified
CPT/HCPCS: 36415; 80053; 80061; 81003; 82306; 83036; 84443; 85025

== ENCOUNTER 2023-12-31 13:04 | Outpatient (AMB) | payer MEDICARE, SELFPAY ==
[2023-12-31 13:17] VITALS: BP 122/80; PULSE 60; O2SAT 96; BMI 25.6
--- NOTE | 2023-12-31 13:17 | MHC.PC.OV ---
Vital Signs 12/31/23 13:17 Height 5 ft 5 in Weight 154 lb BMI 25.6 BP 122/80 Blood Pressure Location Lt brachial Position Sitting Pulse 60 Pulse Source Pulse Oximeter Pulse Oximetry (%) 96 Oxygen Delivery Method Room Air Intake Visit Reasons: 3mth f/u Carpenter General Required: No Accompanied by: Self / Same As Patient Allergies prochlorperazine [From Compazine] Allergy (Intermediate, Verified 12/31/23 14:09) loss of control of tongue muscle (tongue twisted) Medication List - Last Reconciled 12/31/23 by Jordy Cabral MD atenolol 25 mg PO DAILY atorvastatin 10 mg PO DAILY 90 days blood sugar diagnostic (Accu-Chek Anastasia Plus test strips) As directed once a day blood-glucose meter As directed cholecalciferol (vitamin D3) 1,250 mcg PO QWEEK famotidine 40 mg (2 x 20 mg) PO BID fenofibrate 160 mg PO DAILY hydroxyzine HCl 10 mg PO BEDTIME PRN 90 days lancets (Accu-Chek Softclix Lancets) As directed once a day metformin ER 500 mg PO QPM 90 days omega-3 fatty acids-fish oil 360-1,200 mg (Fish Oil) 1 cap PO BID tramadol 50 mg PO TID PRN Tobacco use date assessed: 12/31/23 Fall risk assessment: No Falls in past year Last assessed Fall Risk: 12/31/23 Dental Screening Dental Screen Date: 12/31/23 Did you have a dental visit in the last 12 months?: Yes Did you have a dental problem in the last 6 months where you did not have access to dental care?: No Was dental information given to patient?: Patient has dentist HPI 3mth f/u HPI Details Patient comes in today for his follow up visit States that he is still experiencing increased pain in his left shoulder often - was reportedly advised that he has a small tear in his rotator cuff muscles in his left shoulder and he has been seeing Dr. Tripp for orthopedic follow up and management of his shoulder issues States that he feels okay otherwise He denies any headaches or dizziness Denies any chest pains, no shortness of breath No nausea/vomiting, no abdominal pain No change in bowel habits noted Needs his glucometer test strips Rx refilled He had his follow up labs done a couple of weeks ago - to discuss his results [facility] Medical History Overweight (BMI 25.0-29.9) Diabetes mellitus COVID-19 vaccine series completed Recurrent cold sores Renal insufficiency 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 Sister No problems noted. Son No problems noted. Social History Housing: House Alcohol intake: current Alcohol intake frequency: holidays/special occasions only Patient Tobacco Use Status: Former Tobacco user e-Cigarette/Vaping Use: Never Used Second Hand Smoke Exposure: Yes service: No Current occupational status: retired Current occupation: Right hand dominate Cognitive needs: No Hearing needs: No Vision needs: Yes Questionnaire PHQ-9 Over the last 2 weeks, how often have you been bothered by any of the following problems? 1. Little interest or pleasure in doing things: not at all 2. Feeling down, depressed, or hopeless: not at all 3. Trouble falling or staying asleep, or sleeping too much: not at all 4. Feeling tired or having little energy: not at all 5. Poor appetite or overeating: not at all 6. Feeling bad about yourself - or that you are a failure or have let yourself or your family down: not at all 7. Trouble concentrating on things, such as reading the newspaper or watching television: not at all 8. Moving or speaking so slowly that other people could have noticed. Or the opposite - being so fidgety or restless that you have been moving around a lot more than usual: not at all 9. Thoughts that you would be better off or of hurting yourself in some way: not at all Total score: 0 Depression Screening Interpretation: Negative Depression Screening Done: Yes 55342 - PHQ-9 Billing: Yes Source: Developed by Drs. Jayden Russ, Clara Mcgee, Prabhakar Glover and colleagues, with an educational kirk from [employer]. Thrive Questionnaire Date Thrive assessed: 12/31/23 I am a: Patient What is your living situation today?: I have a steady place to live Within the past 12 months, did the food you bought not last and you didn't have the money to get more?: Never true Within the past 12 months, did you worry whether your food would run out before you got money to buy more?: Never true Do you have trouble paying for medicines?: No Do you have trouble getting transportation to medical appointments?: No Do you have trouble paying your heating and electricity bill?: No Do you have trouble taking care of your child, family member or friend?: No Do you have trouble with day-to-day activities such as bathing, preparing meals, shopping, managing finances, etc.?: No Are you currently unemployed and looking for a job?: No Are you interested in more education?: No Please select the resources that you would like help with: None Currently or been in a relationship where the following occur: No concerns reported THRIVE Score: 0 AUDIT C Alcohol Use Questionnaire (AUDIT-C) 1. How often do you have a drink containing alcohol?: Monthly or less 2. How many drinks containing alcohol do you have on a typical day when you are drinking?: 1 or 2 3. How often do you have six or more drinks on one occasion?: Never Total Score: 1 Score Reviewed/Action Taken: Yes AUSTIN-7 AMB Questionnaire AUSTIN-7 Date AUSTIN - 7 assessed: 12/31/23 Feeling nervous, anxious, or on edge: 0 = Not at all Not being able to stop or control worryin = Not at all Worrying too much about different things: 0 = Not at all Trouble relaxin = Not at all Being so restless that it is hard to sit still: 0 = Not at all Becoming easily annoyed or irritable: 0 = Not at all Feeling afraid as if something awful might happen: 0 = Not at all Total AUSTIN-7 score (0-4 normal; 5-9 mild; 10-14 moderate; 15-21 severe): 0 Source: Developed by Drs. Jayden Russ, Clara Mcgee, Prabhakar Glover and colleagues, with an educational kirk from [employer]. Review of Systems Const Denies chills, Denies fatigue, Denies fever(s) and Denies headache(s) ENT Denies dysphagia, Denies dizziness, Denies otalgia, Denies headache(s), Reports neck pain, Denies odynophagia and Denies sore throat Card Denies chest pain, Denies palpitations and Denies dyspnea Resp Denies cough and Denies dyspnea GI Denies abdominal pain, Denies constipation, Denies dysphagia, Denies heartburn, Denies diarrhea, Denies nausea, Denies odynophagia and Denies vomiting Denies dysuria, Denies nocturia and Denies urinary frequency Musc Denies back pain, Reports arthralgias (both shoulders, worse on the left side) and Reports neck pain Skin/Breast Denies rash Neuro Denies dizziness and Denies headache(s) Endo Denies fatigue and Denies palpitations Physical exam (Primary Care) Vital Signs: Last Vital Signs Pulse 60 12/31/23 13:17 BP 122/80 12/31/23 13:17 Pulse Ox 96 12/31/23 13:17 Oxygen Delivery Method Room Air 12/31/23 13:17 BMI result Body Mass Index 25.6 Tobacco/Smoking Status: Tobacco use Status Tobacco use date assessed 12/31/23 12/31/23 13:18 Patient Tobacco Use Status Former Tobacco user 12/31/23 13:18 e-Cigarette/Vaping Use Never Used 12/31/23 13:18 PHQ-9: PHQ-9 Score PHQ-9: Total score 0 12/31/23 14:14 Depression Screening Interpretation: Negative Thrive Assessment: Date of Thrive Assessment Date Thrive assessed 12/31/23 12/31/23 13:18 Currently or been in a relationship where the following occur: No concerns reported Const General: no acute distress and alert HENMT Ears: TM's normal bilaterally and EAC's normal Throat: Yes posterior oropharynx normal and Yes tonsils normal (no TP congestion noted) Neck Neck: Yes no lymphadenopathy and Yes supple Thyroid: Thyroid normal Resp Auscultation: clear to auscultation bilaterally, no rales and no wheezes Cardio Rate: regular rate Rhythm: regular rhythm Heart sounds: no murmurs GI Palpation (GI): Soft to palpation and nontender Auscultation: normal bowel sounds General: Yes no CVA tenderness Back/Spine/Pelvis Back: no CVA tenderness Cervical Spine: Cervical spine tenderness (mild) Skin Rashes: no rashes Extrem General: Yes no clubbing, cyanosis or edema Left upper extremity: shoulder/upper arm (increased) Details: tenderness; no swelling Results Reviewed Results Reviewed: Laboratory Tests 12/18/23 12/18/23 07:59 08:00 WBC 9.1 Hgb 16.6 Hct 50.0 Plt Count 245 Sodium 139 Potassium 4.2 Creatinine 1.08 Estimated GFR > 60 Fasting Glucose 103 H Hemoglobin A1c % 6.3 H Calcium 10.0 AST 30 ALT 16 Triglycerides 111 Cholesterol 183 LDL Cholesterol, Calc 115 H HDL Cholesterol 46 25-OH Vitamin D Total 42.3 TSH 2.77 Ur Specific [place] 1.015 Urine Protein Negative Urine Glucose (UA) Negative Urine Blood Negative Urine Nitrite Negative Ur Leukocyte Esterase Negative Coding Level of Care Code Est Pt Level 4 (97857) Complex EM visit Add On G2211 Diagnoses Mixed hyperlipidemia E78.2 Benign essential hypertension I10 Type 2 diabetes mellitus with hyperglycemia, without long-term current use of insulin E11.65 Diabetes mellitus type: type 2 Diabetes mellitus ad terminal makeup operator insulin use: without ad terminal makeup operator use Diabetes mellitus complication status: with hyperglycemia GERD without esophagitis K21.9 Generalized pruritus L29.9 Elevated LFTs R79.89 Vitamin D deficiency E55.9 Osteoarthritis of cervical spine, unspecified spinal osteoarthritis complication status M47.812 Spinal osteoarthritis complication: unspecified spinal osteoarthritis Primary osteoarthritis of right shoulder M19.011 Rotator cuff tear arthropathy of left shoulder M75.102; M12.812 Overweight (BMI 25.0-29.9) E66.3 Assessment & Plan Assessment & Plan (1) Mixed hyperlipidemia: Code(s): E78.2 - Mixed hyperlipidemia Category: Medical Plan: Results of his labs done a couple of weeks ago reviewed and discussed with patient - he is advised that his total and LDL cholesterol levels have both increased significantly from previous Reinforced low cholesterol diet Continue Fenofibrate 160 mg QD; will increase his Atorvastatin from 10 mg to 20 mg QD Will recheck his labs and fasting lipids in 4 months for follow up (2) Benign essential hypertension: Code(s): I10 - Essential (primary) hypertension Category: Social Hx Plan: Reinforced low sodium diet - goal is systolic BP of at least 130 to 140 mm or less Continue Atenolol 25 mg QD (3) Diabetes mellitus: Code(s): E11.9 - Type 2 diabetes mellitus without complications Category: Medical Qualifiers: Diabetes mellitus type: type 2 Diabetes mellitus halfway insulin use: without ad terminal makeup operator use Diabetes mellitus complication status: with hyperglycemia Qualified Code(s): E11.65 - Type 2 diabetes mellitus with hyperglycemia Plan: His HgbA1c was at 6.3% on his labs done a couple of weeks ago; HgbA1c was previously at 6.7% a few months ago - goal is <6.5% Reinforced diabetic diet Continue Metformin ER 500 mg Q PM (4) GERD without esophagitis: Code(s): K21.9 - Gastro-esophageal reflux disease without esophagitis Category: Medical Plan: Dietary restrictions reinforced Continue Famotidine 20 mg BID PRN (5) Generalized pruritus: Code(s): L29.9 - Pruritus, unspecified Category: Medical Plan: Continue Hydroxyzine 10 mg Q HS PRN and Clotrimazole 1% cream apply to affected areas BID PRN (6) Elevated LFTs: Code(s): R79.89 - Other specified abnormal findings of blood chemistry Category: Medical Plan: His LFTs are back to normal on his recent labs Abdominal US done in September 2023 revealed (+) moderately increased hepatic echogenicity which can be seen in the setting of hepatic steatosis or underlying liver disease (7) Vitamin D deficiency: Code(s): E55.9 - Vitamin D deficiency, unspecified Category: Medical Plan: Continue Vitamin D2 58804 units once a week (8) Osteoarthritis of cervical spine: Code(s): M47.812 - Spondylosis without myelopathy or radiculopathy, cervical region Category: Medical Qualifiers: Spinal osteoarthritis complication: unspecified spinal osteoarthritis Qualified Code(s): M47.812 - Spondylosis without myelopathy or radiculopathy, cervical region Plan: Continue Tizanidine 4 mg TID PRN (9) Primary osteoarthritis of right shoulder: Comment: Most recent x-rays done in 2017 revealed (+)mild acromioclavicular and minimal glenohumeral degenerative arthritis Code(s): M19.011 - Primary osteoarthritis, right shoulder Category: Medical Plan: Patient states that his shoulder symptoms have improved a lot with cortisone injections and physical therapy when needed in the past Continue Tramadol 50 mg TID PRN Follow-up with orthopedics as scheduled (10) Rotator cuff tear arthropathy of left shoulder: Code(s): M75.102 - Unspecified rotator cuff tear or rupture of left shoulder, not specified as traumatic; M12.812 - Other specific arthropathies, not elsewhere classified, left shoulder Category: Medical Plan: MRI of the shoulder done in June 2023 revealed (+) moderate size full-thickness insertional tear of the supraspinatus tendon, scattered small areas of partial tearing of the infraspinatus tendon and its musculotendinous junction without any measurable defect and [id number] hypertrophic osteoarthritis of the acromioclavicular joint Follow up with orthopedics as scheduled (11) Overweight (BMI 25.0-29.9): Code(s): E66.3 - Overweight Category: Medical Plan: Reinforced diet/exercise as tolerated/lose weight Plan Follow up in 4 months Orders: Orders Hemoglobin A1c 4 Months E11.9 - Type 2 diabetes mellitus without complications Comprehensive [place]. Panel Fast 4 Months E78.00 - Pure hypercholesterolemia, unspecified Lipid Panel 4 Months E78.00 - Pure hypercholesterolemia, unspecified Complete Blood Count Auto Diff 4 Months D64.9 - Anemia, unspecified Medications: New blood sugar diagnostic (Accu-Chek Guide test strips) As directed once a day 100 ea 3RF E11.65 - Type 2 diabetes mellitus with hyperglycemia Changed From atorvastatin 10 mg PO DAILY 90 days 90 tabs 2RF E78.2 - Mixed hyperlipidemia To atorvastatin 20 mg PO DAILY 90 days 90 tabs 3RF E78.2 - Mixed hyperlipidemia Refilled blood sugar diagnostic (Accu-Chek Anastasia Plus test strips) As directed once a day 100 ea 3RF E11.9 - Type 2 diabetes mellitus without complications
== END 2023-12-31 14:20 | disposition home or self-care (01) ==
PROVIDERS: PCP Internal Medicine; Visit Provider Internal Medicine
DX: E11.65 Type 2 diabetes mellitus with hyperglycemia (principal); E78.2 Mixed hyperlipidemia; I10 Essential (primary) hypertension; K21.9 Gastro-esophageal reflux disease without esophagitis; L29.9 Pruritus, unspecified; E55.9 Vitamin D deficiency, unspecified; M47.812 Spondylosis without myelopathy or radiculopathy, cervical region; M19.011 Primary osteoarthritis, right shoulder; M75.102 Unspecified rotator cuff tear or rupture of left shoulder, not specified as traumatic; M12.812 Other specific arthropathies, not elsewhere classified, left shoulder; E66.3 Overweight

== ENCOUNTER → 2023-12-31 13:04 | Outpatient (BNVA) | payer MEDICARE, SELFPAY | PROVIDERS: PCP Internal Medicine; Visit Provider Internal Medicine | DX: E78.2 Mixed hyperlipidemia (principal); I10 Essential (primary) hypertension; E11.65 Type 2 diabetes mellitus with hyperglycemia; K21.9 Gastro-esophageal reflux disease without esophagitis; L29.9 Pruritus, unspecified; R79.89 Other specified abnormal findings of blood chemistry; E55.9 Vitamin D deficiency, unspecified; M47.812 Spondylosis without myelopathy or radiculopathy, cervical region; M19.011 Primary osteoarthritis, right shoulder; E66.3 Overweight | CPT/HCPCS: 96127; 99212 ==

== ENCOUNTER 2024-05-03 08:30 | Outpatient (REF) | payer MEDICARE, SELFPAY ==
--- OUTSIDE RECORDS SUMMARY | 2024-05-03 08:43 | XMS_ITS | Patient Health Record ---
Author Organization [facility] Address [address] [place] [id number] Care Team Providers Care Diamond Assorter Name Role Phone Misha LARSON, Jordy Primary Care Provider Jayden Godfrey [phone] ALLERGIES Allergen (clinical drug ingredient) Drug/Non Drug Allergy documented on EMR Reaction Allergy Type Onset Date Status Compazine Unknown Drug Allergy Active REASON FOR REFERRAL No Information MEDICATIONS Medication SIG (Take, Route, Frequency, Duration) Notes Start Date End Date Status Cyclobenzaprine HCl 5 MG as directed Orally prn Active Famotidine 40 MG 1 Orally Twice a day Active Fenofibrate Active hydrOXYzine HCl 10 MG 1 tablet as needed Orally Active traMADol HCl 50 MG 1 tablet as needed O rally Once a day Active Atorvastatin Calcium 10 MG 1 tablet Oral ly Once a day Active Fish Oil Active Atenolol 25 MG 1 tablet Orally Once a day Active Vitamin B12 Active Vitamin D Active IMMUNIZATIONS Vaccine Route Administration Date Status Comme nts Influenza Unknown 11/23/2019 Administered SOCIAL HISTORY Tobacco Use: Social History Observation Description Date Details (start date - stop date) Never Smoker NA - NA Sex Assigned At : Social History Observation Description Sex Assigned At Unknown Tobacco Use/Smoking Question Answer Notes Patient is a nonsmoker Alcohol Screen Question Answer Notes Did you have a drink contain ing alcohol in the past year? Yes How often did you have a dri nk containing alcohol in the past year? Never (0 point) How many drinks did you have on a typical day when you were drinking in the past year? 1 or 2 drinks (0 point) How often did you have 6 or more drinks on one occasion in the past year? Never (0 point) Points 0 Interpretation Negative PROBLEMS Problem Type ICD Code Onset Dates Problem Status W/U Status Risk SNOMED Code Notes Problem Preprocedural examination (Z01.818) Active confirmed [id number] Problem Encounter for screening for malignant neoplasm of colon (Z12.11) Active confirmed [id number] Problem Diverticulosis of sigmoid colon (K57.30) Active confirmed Diverticulosis of sigmoid colon (310170791) PLAN OF TREATMENT Future Test Test Name Order Date COLONOSCOPY 07/11/2020 Insurance Providers Payer Name Payer Address Payer Phone Subscriber Number Group Number Insured Name Patient Relationship to Insured Coverage Start Date Coverage End Date [facility] [address] [place] [address] [id number] MARSTYRONE Self - patient is the insured MEDICAL (GENERAL) HISTORY Medical History History ICD Code Denies RI,DM,CVA,Lung disease,renal dise ase HTN Hyperlipidemia GERD Neg. screening colonoscopies in 1999 and 2009, except for a hyperplastic polyp GI bleed from PUD and aspirin--needed tr ansfusions Kidney stones Surgical History Surgery Date(Month/Year) Hernia disc C6-C7 1995
[2024-05-03 09:12] LABS: MANUAL DIFF FLAG NO
[2024-05-03 09:40] LABS: Basophils Percent Auto 0.5 % (0-2); Eosinophils Absolute Auto 0.4 X10*3/uL (0.0-0.4); Eosinophils Percent Auto 5.4 % (0-4); Hematocrit 44.9 % (42.0-52.0); Hemoglobin 14.8 g/dl (14.0-18.0); Imm Gran Abs Auto 0.02 X10*3/uL (0.00-0.03); Imm Gran Pct Auto 0.3 % (0.0-0.4); Lymphocytes Absolute Auto 2.2 X10*3/uL (1.2-4.9); Lymphocytes Percent Auto 30.4 % (20-40); Mean Corpuscular Hemoglobin 28.7 pg (27.0-33.0); Monocytes Absolute Auto 0.6 X10*3/uL (0.1-1.2); Monocytes Percent Auto 7.5 % (2-11); Neutrophils Absolute Auto 4.1 x10*3/uL (2.0-8.3); Neutrophils Percent Auto 55.9 % (45-73); Platelet Count 260 X10*3/uL (160-400); Red Blood Count 5.16 X10*6/uL (4.60-5.80); Red Cell Distribution Width 13.1 % (11.0-16.0); White Blood Count 7.3 X10*3/uL (4.8-10.8)
[2024-05-03 09:50] LABS: Estimated Average Glucose 128 mg/dL; Hemoglobin A1C 165.7074 umol/L; Hemoglobin A1c % 6.1 % (<6.0); Total Hemoglobin (HGBA1C) 3866.1033 umol/L
[2024-05-03 10:15] LABS: Alanine Aminotransferase 30 U/L (0-40); Albumin Level 4.1 g/dL (3.5-5.0); Alkaline Phosphatase 109 U/L (39-117); Anion Gap 12 (12-20); Aspartate Amino Transferase 40 U/L (5-37); Bilirubin Total 0.8 mg/dL (0.0-1.0); Blood Urea Nitrogen 10 mg/dL (9-16); Calcium 9.7 mg/dL (8.4-10.2); Carbon Dioxide 25 mmol/L (22-29); Chloride 108 mmol/L (96-108); Cholesterol 169 mg/dL (<200); Estimated Glomerular Filt Rate > 60; Glucose Fasting 113 mg/dL (60-99); HDL Cholesterol 44 mg/dL (>40); LDL Cholesterol Calculated 108 mg/dL (<100); Potassium 3.8 mmol/L (3.3-5.1); Sodium 141 mmol/L (135-145); Total Protein 7.5 g/dL (6.5-8.0); Triglycerides 85 mg/dL (<150)
== END 2024-05-03 08:31 | disposition home or self-care (01) ==
LOC: HO.LAB 08:30
PROVIDERS: PCP Internal Medicine; Visit Provider Internal Medicine
DX: E78.00 Pure hypercholesterolemia, unspecified (principal); D64.9 Anemia, unspecified; E11.9 Type 2 diabetes mellitus without complications
CPT/HCPCS: 36415; 80053; 80061; 83036; 85025

== ENCOUNTER 2024-05-05 13:03 | Outpatient (AMB) | payer MEDICARE, SELFPAY ==
[2024-05-05 13:30] VITALS: BP 122/78; PULSE 71; O2SAT 96; BMI 25.2
--- NOTE | 2024-05-05 13:30 | A.OFFPC_ITS ---
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 Required: No Accompanied by: Self / Same As Patient Allergies prochlorperazine [From Compazine] Allergy (Intermediate, Verified 05/05/24 14:18) loss of control of tongue muscle (tongue twisted) Medication List - Last Reconciled 05/05/24 by Jordy Cabral MD atenolol 25 mg PO DAILY atorvastatin 20 mg PO DAILY 90 days blood sugar diagnostic (Accu-Chek Anastasia Plus test strips) As directed once a day blood sugar diagnostic (Accu-Chek Guide test strips) As directed once a day blood-glucose meter As directed cholecalciferol (vitamin D3) 1,250 mcg PO QWEEK famotidine 40 mg (2 x 20 mg) PO BID fenofibrate 160 mg PO DAILY hydroxyzine HCl 10 mg PO BEDTIME PRN 90 days lancets (Accu-Chek Softclix Lancets) As directed once a day omega-3 fatty acids-fish oil 360-1,200 mg (Fish Oil) 1 cap PO BID tramadol 50 mg PO TID PRN Tobacco use date assessed: 05/05/24 Fall risk assessment: No Falls in past year Last assessed Fall Risk: 05/05/24 Dental Screening Dental Screen Date: 05/05/24 Did you have a dental visit in the last 12 months?: Yes Did you have a dental problem in the last 6 months where you did not have access to dental care?: No Was dental information given to patient?: Patient has dentist HPI annual exam HPI Details Patient comes in today for his annual physical examination States that he feels okay He denies any headaches or dizziness Denies any chest pains, no shortness of breath No nausea/vomiting, no abdominal pain No change in bowel habits noted He denies any acute urinary symptoms States that he needs his test strips and lancets Rx refilled He had his follow-up labs done a couple of days ago - to discuss his results He had his last colonoscopy done back in November 2020 and will be due for repeat colonoscopy in 5 years (2025) [facility] Medical History Overweight (BMI 25.0-29.9) Diabetes mellitus COVID-19 vaccine series completed Recurrent cold sores Renal insufficiency 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 Sister No problems noted. Son No problems noted. Social History Housing: House Alcohol intake: current Alcohol intake frequency: holidays/special occasions only Patient Tobacco Use Status: Former Tobacco user e-Cigarette/Vaping Use: Never Used Second Hand Smoke Exposure: Yes service: No Current occupational status: retired Current occupation: Right hand dominate Cognitive needs: No Hearing needs: No Vision needs: Yes Questionnaire PHQ-9 Over the last 2 weeks, how often have you been bothered by any of the following problems? 1. Little interest or pleasure in doing things: not at all 2. Feeling down, depressed, or hopeless: not at all 3. Trouble falling or staying asleep, or sleeping too much: not at all 4. Feeling tired or having little energy: not at all 5. Poor appetite or overeating: not at all 6. Feeling bad about yourself - or that you are a failure or have let yourself or your family down: not at all 7. Trouble concentrating on things, such as reading the newspaper or watching television: not at all 8. Moving or speaking so slowly that other people could have noticed. Or the opposite - being so fidgety or restless that you have been moving around a lot more than usual: not at all 9. Thoughts that you would be better off or of hurting yourself in some way: not at all Total score: 0 Depression Screening Interpretation: Negative Depression Screening Done: Yes 93113 - PHQ-9 Billing: Yes Source: Developed by Drs. Jayden Russ, Clara Mcgee, Prabhakar Glover and colleagues, with an educational kirk from [employer]. Thrive Questionnaire Date Thrive assessed: 05/05/24 I am a: Patient What is your living situation today?: I have a steady place to live Within the past 12 months, did the food you bought not last and you didn't have the money to get more?: Never true Within the past 12 months, did you worry whether your food would run out before you got money to buy more?: Never true Do you have trouble paying for medicines?: No Do you have trouble getting transportation to medical appointments?: No Do you have trouble paying your heating and electricity bill?: No Do you have trouble taking care of your child, family member or friend?: No Do you have trouble with day-to-day activities such as bathing, preparing meals, shopping, managing finances, etc.?: No Are you currently unemployed and looking for a job?: No Are you interested in more education?: No Please select the resources that you would like help with: None Currently or been in a relationship where the following occur: No concerns reported THRIVE Score: 0 AUDIT C Alcohol Use Questionnaire (AUDIT-C) 1. How often do you have a drink containing alcohol?: Monthly or less 2. How many drinks containing alcohol do you have on a typical day when you are drinking?: 1 or 2 3. How often do you have six or more drinks on one occasion?: Never Total Score: 1 Score Reviewed/Action Taken: Yes AUSTIN-7 AMB Questionnaire AUSTIN-7 Date AUSTIN - 7 assessed: 05/05/24 Feeling nervous, anxious, or on edge: 0 = Not at all Not being able to stop or control worryin = Not at all Worrying too much about different things: 0 = Not at all Trouble relaxin = Not at all Being so restless that it is hard to sit still: 0 = Not at all Becoming easily annoyed or irritable: 0 = Not at all Feeling afraid as if something awful might happen: 0 = Not at all Total AUSTIN-7 score (0-4 normal; 5-9 mild; 10-14 moderate; 15-21 severe): 0 Source: Developed by Drs. Jayden Russ, Clara Mcgee, Prabhakar Glover and colleagues, with an educational kirk from [employer]. Review of Systems Const Denies chills, Denies fatigue, Denies fever(s), Denies headache(s), Denies malaise and Denies weakness Eyes Denies blurry vision, Denies change in vision, Denies irritation and Denies itchy eyes ENT Denies dysphagia, Denies dizziness, Denies otalgia, Denies headache(s), Denies nasal congestion, Reports neck pain, Denies odynophagia and Denies sore throat Card Denies chest pain, Denies rapid heart rate, Denies irregular heart rhythm, Denies palpitations and Denies dyspnea Resp Denies chest congestion, Denies cough, Denies dyspnea and Denies wheezing GI Denies abdominal pain, Denies bloating, Denies constipation, Denies dysphagia, Denies heartburn, Denies diarrhea, Denies nausea, Denies odynophagia and Denies vomiting Denies hematuria, Denies difficulty urinating, Denies dysuria, Denies urinary frequency and Denies urinary urgency Musc Denies back pain, Reports arthralgias (both shoulders, worse on the left side), Denies joint swelling, Denies muscle weakness and Reports neck pain Skin/Breast Denies change in pigmentation, Denies lesions, Denies rash and Denies unusual bruising Neuro Denies dizziness, Denies headache(s), Denies paresthesias and Denies weakness Endo Denies fatigue and Denies palpitations Aller/Immun Denies itchy eyes and Denies wheezing Physical exam (Primary Care) Vital Signs: Last Vital Signs Pulse 71 05/05/24 13:30 BP 122/78 05/05/24 13:30 Pulse Ox 96 05/05/24 13:30 Oxygen Delivery Method Room Air 05/05/24 13:30 BMI result Body Mass Index 25.2 Tobacco/Smoking Status: Tobacco use Status Tobacco use date assessed 05/05/24 05/05/24 13:35 Patient Tobacco Use Status Former Tobacco user 05/05/24 13:35 e-Cigarette/Vaping Use Never Used 05/05/24 13:35 PHQ-9: PHQ-9 Score PHQ-9: Total score 0 05/05/24 14:25 Depression Screening Interpretation: Negative Thrive Assessment: Date of Thrive Assessment Date Thrive assessed 05/05/24 05/05/24 13:35 Currently or been in a relationship where the following occur: No concerns reported Const General: no acute distress, alert and awake Orientation/consciousness: patient oriented x3 HENMT Head: Yes normocephalic and Yes atraumatic Ears: external ears normal, TM's normal bilaterally and EAC's normal General nose exam: No nasal discharge present Face and sinus: Yes normal facial exam and Yes sinuses nontender Teeth and gingiva: dentition normal Throat: Yes posterior oropharynx normal and Yes tonsils normal (no TP congestion) Eyes Eyelids: Yes eyelids normal Conjunctivae: conjunctivae normal Pupils: Equal, round and reactive pupils present EOM: EOMs intact bilaterally Neck Neck: No lymphadenopathy Thyroid: Thyroid normal Resp Auscultation: clear to auscultation bilaterally, no rales and no wheezes Cardio Rate: regular rate Rhythm: regular rhythm Heart sounds: no murmurs GI Palpation (GI): Soft to palpation, nontender and No hepatosplenomegaly present Auscultation: normal bowel sounds General: Yes no CVA tenderness Back/Spine/Pelvis Back: no CVA tenderness Cervical Spine: Cervical spine tenderness (mild) Thoracic/Lumbar Spine: thoracic and lumbar spine normal to inspection Skin Lesions: no lesions Rashes: no rashes Neuro General: patient oriented x3, moves all extremities, no focal motor deficits and CN's II-XI intact bilaterally Cranial nerves: Yes Equal, round and reactive pupils present Cognition (Neuro): normal cognition Gait exam (Neuro): Normal gait present Extrem General: Yes no clubbing, cyanosis or edema Left upper extremity: shoulder/upper arm (increased) Details: tenderness; no swelling Results Reviewed Results Reviewed: Laboratory Tests 05/03/24 09:11 WBC 7.3 Hgb 14.8 Hct 44.9 Plt Count 260 Sodium 141 Potassium 3.8 Creatinine 0.96 Estimated GFR > 60 Fasting Glucose 113 H Hemoglobin A1c % 6.1 H Calcium 9.7 AST 40 H ALT 30 Triglycerides 85 Cholesterol 169 LDL Cholesterol, Calc 108 H HDL Cholesterol 44 Coding Level of Care Code Est Pt Prev Care >65y(09949) Diagnoses Annual physical exam Z00.00 Mixed hyperlipidemia E78.2 Benign essential hypertension I10 Type 2 diabetes mellitus with hyperglycemia, without long-term current use of insulin E11.65 Diabetes mellitus type: type 2 Diabetes mellitus senior living insulin use: without senior living use Diabetes mellitus complication status: with hyperglycemia GERD without esophagitis K21.9 Generalized pruritus L29.9 Elevated LFTs R79.89 Vitamin D deficiency E55.9 Osteoarthritis of cervical spine, unspecified spinal osteoarthritis complication status M47.812 Spinal osteoarthritis complication: unspecified spinal osteoarthritis Primary osteoarthritis of right shoulder M19.011 Rotator cuff tear arthropathy of left shoulder M75.102; M12.812 Overweight (BMI 25.0-29.9) E66.3 Additional Codes PHQ-9 - 45570 - PHQ-9 Billing: Yes ([id number]) Assessment & Plan Assessment & Plan (1) Annual physical exam: Code(s): Z00.00 - Encounter for general adult medical examination without abnormal findings Category: Medical Plan: Results of his labs done a couple of days ago reviewed and discussed with patient He is currently up-to-date with his colon cancer screening - will be due for repeat colonoscopy next year (2025) (2) Mixed hyperlipidemia: Code(s): E78.2 - Mixed hyperlipidemia Category: Medical Plan: His cholesterol numbers have improved slightly from previous on his recent labs Reinforced low cholesterol diet Continue Fenofibrate 160 mg QD and Atorvastatin 20 mg QD Will recheck his labs and fasting lipids in 4 months for follow up (3) Benign essential hypertension: Code(s): I10 - Essential (primary) hypertension Category: Social Hx Plan: Reinforced low sodium diet - goal is systolic BP of at least 130 to 140 mm or less Continue Atenolol 25 mg QD (4) Diabetes mellitus: Code(s): E11.9 - Type 2 diabetes mellitus without complications Category: Medical Qualifiers: Diabetes mellitus type: type 2 Diabetes mellitus senior living insulin use: without senior living use Diabetes mellitus complication status: with hyperglycemia Qualified Code(s): E11.65 - Type 2 diabetes mellitus with hyperglycemia Plan: His HgbA1c was at 6.1% on his labs done a couple of days ago; it was previously at 6.3% a few months ago - goal is <6.5% Reinforced diabetic diet Continue Metformin ER 500 mg Q PM (5) GERD without esophagitis: Code(s): K21.9 - Gastro-esophageal reflux disease without esophagitis Category: Medical Plan: Dietary restrictions reinforced Continue Famotidine 20 mg BID PRN (6) Generalized pruritus: Code(s): L29.9 - Pruritus, unspecified Category: Medical Plan: Continue Hydroxyzine 10 mg Q HS PRN and Clotrimazole 1% cream apply to affected areas BID PRN (7) Elevated LFTs: Code(s): R79.89 - Other specified abnormal findings of blood chemistry Category: Medical Plan: His LFTs have increased slightly on his recent labs but are both still within normal / acceptable limits Abdominal US done in September 2023 revealed (+) moderately increased hepatic echogenicity which can be seen in the setting of hepatic steatosis or underlying liver disease We will continue to monitor his LFTs regularly (8) Vitamin D deficiency: Code(s): E55.9 - Vitamin D deficiency, unspecified Category: Medical Plan: Continue Vitamin D2 52846 units once a week (9) Osteoarthritis of cervical spine: Code(s): M47.812 - Spondylosis without myelopathy or radiculopathy, cervical region Category: Medical Qualifiers: Spinal osteoarthritis complication: unspecified spinal osteoarthritis Qualified Code(s): M47.812 - Spondylosis without myelopathy or radiculopathy, cervical region Plan: Continue Tizanidine 4 mg TID PRN (10) Primary osteoarthritis of right shoulder: Comment: Most recent x-rays done in 2017 revealed (+)mild acromioclavicular and minimal glenohumeral degenerative arthritis Code(s): M19.011 - Primary osteoarthritis, right shoulder Category: Medical Plan: Patient states that his shoulder symptoms have improved a lot with cortisone injections and physical therapy when needed in the past Continue Tramadol 50 mg TID PRN Follow-up with orthopedics as scheduled (11) Rotator cuff tear arthropathy of left shoulder: Code(s): M75.102 - Unspecified rotator cuff tear or rupture of left shoulder, not specified as traumatic; M12.812 - Other specific arthropathies, not elsewhere classified, left shoulder Category: Medical Plan: MRI of the shoulder done in June 2023 revealed (+) moderate size full-thickness insertional tear of the supraspinatus tendon, scattered small areas of partial tearing of the infraspinatus tendon and its musculotendinous junction without any measurable defect and [id number] hypertrophic osteoarthritis of the acromioclavicular joint Follow up with orthopedics as scheduled (12) Overweight (BMI 25.0-29.9): Code(s): E66.3 - Overweight Category: Medical Plan: Reinforced diet/exercise as tolerated/lose weight Plan Follow up in 4 months Orders: Orders Hemoglobin A1c 4 Months E11.9 - Type 2 diabetes mellitus without complications Microalbumin, Random (w Creat) 4 Months E11.9 - Type 2 diabetes mellitus without complications UA CC w/rflx Micro + Cult 4 Months R30.0 - Dysuria TSH reflex Free T4 4 Months E78.00 - Pure hypercholesterolemia, unspecified Lipid Panel 4 Months E78.00 - Pure hypercholesterolemia, unspecified Complete Blood Count Auto Diff 4 Months D64.9 - Anemia, unspecified Comprehensive [place]. Panel Fast 4 Months E78.00 - Pure hypercholesterolemia, unspecified Medications: Refilled blood sugar diagnostic (Accu-Chek Guide test strips) As directed once a day 100 ea 3RF E11.65 - Type 2 diabetes mellitus with hyperglycemia blood sugar diagnostic (Accu-Chek Guide test strips) As directed once a day 100 ea 3RF E11.65 - Type 2 diabetes mellitus with hyperglycemia Discontinued blood sugar diagnostic (Accu-Chek Anastasia Plus test strips) Discontinued Reason: Duplicate As directed once a day 100 ea 3RF E11.9 - Type 2 diabetes mellitus without complications
--- OUTSIDE RECORDS SUMMARY | 2024-05-05 14:27 | XMS_ITS | Patient Health Record ---
Author Organization [facility] Address [address] [place] [address] Care Team Providers Care Director Of [facility] Name Role Phone Misha LARSON, Jordy Primary Care Provider Jayden Godfrey [phone] ALLERGIES Allergen (clinical drug ingredient) Drug/Non Drug [...] Notes Problem Preprocedural examination (Z01.818) Active confirmed [id number] Problem Encounter for screening for malignant neoplasm of colon (Z12.11) Active confirmed [id number] Problem Diverticulosis of sigmoid colon (K57.30) Active confirmed Diverticulosis of sigmoid colon (275051714) PLAN OF TREATMENT Future Test Test Name Order Date COLONOSCOPY 07/11/2020 Insurance Providers Payer Name Payer Address Payer Phone Subscriber Number Group Number Insured Name Patient Relationship to Insured Coverage Start Date Coverage End Date [facility] [address] [place] [address] [phone] [id number] MARSTYRONE Self - patient is the insured MEDICAL (GENERAL) HISTORY Medical History History ICD Code Denies [place],DM,CVA,Lung disease,renal dise ase HTN Hyperlipidemia GERD Neg. screening colonoscopies in 1999 and 2009, except for a hyperplastic polyp GI bleed from PUD and aspirin--needed tr ansfusions Kidney stones Surgical History Surgery Date(Month/Year) Hernia disc C6-C7 1995
== END 2024-05-05 14:36 | disposition home or self-care (01) ==
PROVIDERS: PCP Internal Medicine; Visit Provider Internal Medicine
DX: Z00.00 Encounter for general adult medical examination without abnormal findings (principal); E11.65 Type 2 diabetes mellitus with hyperglycemia; E78.2 Mixed hyperlipidemia; I10 Essential (primary) hypertension; K21.9 Gastro-esophageal reflux disease without esophagitis; L29.9 Pruritus, unspecified; R79.89 Other specified abnormal findings of blood chemistry; E55.9 Vitamin D deficiency, unspecified; M47.812 Spondylosis without myelopathy or radiculopathy, cervical region; M19.011 Primary osteoarthritis, right shoulder; M75.102 Unspecified rotator cuff tear or rupture of left shoulder, not specified as traumatic; M12.812 Other specific arthropathies, not elsewhere classified, left shoulder

== ENCOUNTER → 2024-05-05 13:03 | Outpatient (BNVA) | payer MEDICARE, SELFPAY | PROVIDERS: PCP Internal Medicine; Visit Provider Internal Medicine | DX: Z00.00 Encounter for general adult medical examination without abnormal findings (principal); E78.2 Mixed hyperlipidemia; I10 Essential (primary) hypertension; E11.65 Type 2 diabetes mellitus with hyperglycemia; K21.9 Gastro-esophageal reflux disease without esophagitis; L29.9 Pruritus, unspecified; R79.89 Other specified abnormal findings of blood chemistry; E55.9 Vitamin D deficiency, unspecified; M47.812 Spondylosis without myelopathy or radiculopathy, cervical region; M75.102 Unspecified rotator cuff tear or rupture of left shoulder, not specified as traumatic; M12.812 Other specific arthropathies, not elsewhere classified, left shoulder; E66.3 Overweight | CPT/HCPCS: 96127; 99397 ==

== ENCOUNTER 2024-06-08 14:56 | Outpatient (REF) | payer MEDICARE, SELFPAY ==
--- NOTE | ~2024-06-08 | US_ITS ---
EXAMINATION: US KIDNEY BILATERAL HISTORY: N20.0 - Calculus of kidney TECHNIQUE: Real-time grayscale ultrasound imaging of the kidneys was performed and images were reviewed. COMPARISON: Correlation is made with an ultrasound of the abdomen dated 10/09/2023. FINDINGS: Right kidney: The right kidney measures 10.9 x 5.3 x 4.6 cm. Renal parenchymal echotexture and thickness are normal. There are no masses. There is no hydronephrosis or renal calculi. Left Kidney: The left kidney measures 11.3 x 5.2 x 4.4 cm. Renal parenchymal echotexture and thickness are normal. There are no masses. There is a nonobstructing calculus mid to lower pole region measuring 8 x 5 x 4 mm. There is no hydronephrosis. US/US renal BI IMPRESSION: 8 x 5 x 4 mm nonobstructing calculus at the mid to lower pole of the left kidney. Electronically signed by: Jayden Hand MD 06/09/2024 07:24 AM EDT
--- OUTSIDE RECORDS SUMMARY | 2024-06-08 17:49 | XMS_ITS | Patient Health Record ---
Author Organization [facility] Address [address] [place] [address] Care Team Providers Care Tennis Camp Instructor Name Role Phone Misha LARSON, Jordy Primary Care Provider Jayden Godfrey [phone] Allergies Allergen (clinical drug ingredient) Drug/Non Drug Allergy documented on EMR Reaction Allergy Type Onset Date Status Compazine Unknown Drug Allergy Active Reason For Referral No Information Medications Medication SIG (Take, Route, Frequency, Duration) Notes [...] Active Vitamin B12 Active Vitamin D Active Immunizations Vaccine Route Administration Date Status Comme nts Influenza Unknown 11/23/2019 Administered Social History Tobacco Use: Social History Observation Description Date Details (start date - stop date) Never Smoker NA - NA Tobacco Use/Smoking Question Answer Notes Patient is [...] Never (0 point) Points 0 Interpretation Negative Section Notes: Nonsmoker; very occasional drink Originally from [place]--came [place] Problems Problem Type SNOMED Code ICD Code Onset Dates Problem Status W/U Status Risk Notes Problem [id number] Encounter for screening for malignant neoplasm of colon (Z12.11) Active confirmed Problem [id number] Preprocedural examination (Z01.818) Active confirmed Problem Diverticulosis of sigmoid colon (031351281) Diverticulosis of sigmoid colon (K57.30) Active confirmed Plan Of Treatment Future Test Test Name Order Date COLONOSCOPY 07/11/2020 Insurance Providers Payer Name Payer Address Payer Phone Subscriber Number Group Number Insured Name Patient Relationship to Insured Coverage Start Date Coverage End Date [facility] [address] [place] [address] [id number] TYRONE CREWS Self - patient is the insured Medical (General) History Medical History History ICD Code Denies [place],DM,CVA,Lung disease,renal dise ase HTN Hyperlipidemia GERD Neg. screening colonoscopies in 1999 and 2009, except for a hyperplastic polyp GI bleed from PUD and aspirin--needed tr ansfusions Kidney stones Surgical History Surgery Date(Month/Year) Hernia disc C6-C7 1995
== END 2024-06-08 14:57 | disposition home or self-care (01) ==
LOC: HO.US 14:56
PROVIDERS: PCP Internal Medicine; Visit Provider Urology
DX: N20.0 Calculus of kidney (principal)
CPT/HCPCS: 76775

== ENCOUNTER → 2024-06-08 14:57 | Outpatient (BNV) | payer MEDICARE, SELFPAY | PROVIDERS: PCP Internal Medicine; Visit Provider Radiology Diagnostic Radiology | DX: N20.0 Calculus of kidney (principal) | CPT/HCPCS: 76775 ==

== ENCOUNTER 2024-08-13 12:42 | Outpatient (AMB) | payer MEDICARE, SELFPAY ==
--- OUTSIDE RECORDS SUMMARY | 2024-08-13 12:45 | XMS_ITS | Patient Health Record ---
Author Organization [facility] Address [address] [place] [address] Care Team Providers Care Insulation Machine Operator Name Role Phone Misha LARSON, Jordy Primary Care Provider Jayden Godfrey [phone] Allergies Allergen (clinical drug ingredient) Drug/Non Drug [...] Problem Status W/U Status Risk Notes Problem [id number] Encounter for screening for malignant neoplasm of colon (Z12.11) Active confirmed Problem [id number] Preprocedural examination (Z01.818) Active confirmed Problem Diverticulosis of sigmoid colon (209829107) Diverticulosis of sigmoid colon (K57.30) Active confirmed Plan Of Treatment Future Test Test Name Order Date COLONOSCOPY 07/11/2020 Insurance Providers Payer Name Payer Address Payer Phone Subscriber Number Group Number Insured Name Patient Relationship to Insured Coverage Start Date Coverage End Date [facility] [address] [place] [address] [id number] TYRONE CREWS Self - patient is the insured Medical (General) History Medical History History ICD Code Denies [place],DM,CVA,Lung disease,renal dise ase HTN Hyperlipidemia GERD Neg. screening colonoscopies in 1999 and 2009, except for a hyperplastic polyp GI bleed from PUD and aspirin--needed tr ansfusions Kidney stones Surgical History Surgery Date(Month/Year) Hernia disc C6-C7 1995
--- NOTE | 2024-08-13 13:15 | MHC.OFFVIS ---
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 He is a patient of Dr. Cabral. Seen for the following urologic conditions - nephrolithiasis Discussed imaging results Encourage lemon fluid diet Continue yearly evaluation Minimal urination issues Nephrolithiasis - background of diabetes Prior history of renal stone disease - concomitant diagnoses impaired glucose tolerance Management with increased hydration PSA 07/11 1.2, 06/11 1.5 Imaging - 06/12 renal ultrasound multiple stones bilateral maximum 6 mm - 06/13 renal ultrasound small twinkle left side - 05/17 renal ultrasound small caruncle left side - 07/16 renal ultrasound small stone left side PFSH Medical History Overweight (BMI 25.0-29.9) Diabetes mellitus COVID-19 vaccine series completed Recurrent cold sores Renal insufficiency 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 Sister No problems noted. Son No problems noted. Social History Housing: House Alcohol intake: current Alcohol intake frequency: holidays/special occasions only Patient Tobacco Use Status: Former Tobacco user e-Cigarette/Vaping Use: Never Used Second Hand Smoke Exposure: Yes service: No Current occupational status: retired Current occupation: Right hand dominate Cognitive needs: No Hearing needs: No Vision needs: Yes Review of Systems Const Denies chills and Denies fever(s) Card Reports no additional complaints and Denies syncope Resp Denies cough GI Denies abdominal pain and Denies heartburn Reports as per HPI and Denies change in libido Neuro Denies syncope Psych Denies change in libido Endo Denies change in libido Physical Exam Const General: cooperative, healthy appearing, comfortable and no acute distress Orientation/consciousness: patient oriented x3 HEENT Face and sinus: Yes normal facial exam Mouth: moist mucous membranes Neck Neck: Yes normal visual inspection, Yes full ROM and Yes trachea midline Chest Chest palpation & inspection: normal inspection of the chest Resp Effort & Inspection: normal respiratory effort, able to speak in complete sentences and no respiratory distress GI Inspection: Yes normal to inspection Back/Spine/Pelvis Cervical Spine: normal cervical lordosis Thoracic/Lumbar Spine: thoracic and lumbar spine normal to inspection Skin General skin exam: no rashes or lesions noted Neuro General: patient oriented x3, gait normal, tone normal and moves all extremities Extrem General: Yes normal to inspection and Yes capillary refill normal Assessment & Plan Assessment & Plan (1) Bilateral nephrolithiasis: Code(s): N20.0 - Calculus of kidney Category: Medical Plan Twelve month follow-up renal ultrasound Orders: Orders US renal BI 12 Months N20.0 - Calculus of kidney Medications: New pyridoxine (vitamin B6) 50 mg PO DAILY 90 tabs 1RF 90 days N20.0 - Calculus of kidney Patient Instructions: This note is constructed using voice recognition software. While every effort has been made to ensure accuracy personal financial planner errors may have been included. Imaging studies, laboratory and physical exam results were discussed and reviewed in detail. No major barriers to patient understanding were identified. An opportunity to ask questions regarding the treatment plan was provided. All questions were answered. The patient expressed understanding and agreement with the above treatment plan. The patient is aware they should contact our office by phone for worsening of their current condition or the appearance of new urologic symptoms. Compliance is encouraged with any medications and followup testing that is ordered. It is a privilege to participate in the urologic care of your patient. If you have any questions or concerns regarding treatment for the above conditions, or other urologic issues, please do not hesitate to contact me. The office telephone contact is [phone]. Sincerely, Dr Arcadio Vitale MD, [facility] Compassionate Specialist Care for the Genitourinary System Coding Level of Care Code Est Pt Level 4 (57553) Diagnoses Bilateral nephrolithiasis N20.0
== END 2024-08-13 13:37 | disposition home or self-care (01) ==
LOC: HO.HUSH 12:43
PROVIDERS: PCP Internal Medicine; Visit Provider Urology
DX: N20.0 Calculus of kidney (principal)
CPT/HCPCS: 99214

== ENCOUNTER → 2024-08-13 12:42 | Outpatient (BNVA) | payer MEDICARE, SELFPAY | PROVIDERS: PCP Internal Medicine; Visit Provider Urology | DX: N20.0 Calculus of kidney (principal); E11.9 Type 2 diabetes mellitus without complications | CPT/HCPCS: 99212 ==

== ENCOUNTER 2024-09-13 16:52 | Outpatient (REF) | payer MEDICARE, SELFPAY ==
[2024-09-13 17:01] LABS: MANUAL DIFF FLAG NO
[2024-09-13 17:06] LABS: Basophils Percent Auto 0.6 % (0-2); Eosinophils Absolute Auto 0.3 X10*3/uL (0.0-0.4); Hematocrit 45.4 % (42.0-52.0); Hemoglobin 15.3 g/dl (14.0-18.0); Imm Gran Abs Auto 0.03 X10*3/uL (0.00-0.03); Imm Gran Pct Auto 0.5 % (0.0-0.4); Lymphocytes Absolute Auto 2.5 X10*3/uL (1.2-4.9); Lymphocytes Percent Auto 37.2 % (20-40); Mean Corpuscular HGB Conc 33.7 g/dl (31.0-36.0); Mean Corpuscular Hemoglobin 28.8 pg (27.0-33.0); Mean Corpuscular Volume 85.3 fL (80.0-98.0); Mean Platelet Volume 9.7 fL (9.4-12.4); Monocytes Absolute Auto 0.4 X10*3/uL (0.1-1.2); Monocytes Percent Auto 6.5 % (2-11); Neutrophils Absolute Auto 3.3 x10*3/uL (2.0-8.3); Neutrophils Percent Auto 50.2 % (45-73); Platelet Count 271 X10*3/uL (160-400); Red Blood Count 5.32 X10*6/uL (4.60-5.80); Red Cell Distribution Width 13.6 % (11.0-16.0); White Blood Count 6.6 X10*3/uL (4.8-10.8)
[2024-09-13 17:15] LABS: Estimated Average Glucose 131 mg/dL; Hemoglobin A1c % 6.2 % (<6.0)
--- OUTSIDE RECORDS SUMMARY | 2024-09-13 17:47 | XMS_ITS | Patient Health Record ---
Author Organization [facility] Address [address] [place] [id number] Care Team Providers Care Payment Rep Name Role Phone Misha LARSON, Jordy Primary Care Provider Jayden Godfrey [phone] Allergies Allergen (clinical drug ingredient) Drug/Non Drug [...] Problem Status W/U Status Risk Notes Problem [id number] Encounter for screening for malignant neoplasm of colon (Z12.11) Active confirmed Problem [id number] Preprocedural examination (Z01.818) Active confirmed Problem Diverticulosis of sigmoid colon (616641893) Diverticulosis of sigmoid colon (K57.30) Active confirmed Plan Of Treatment Future Test Test Name Order Date COLONOSCOPY 07/11/2020 Insurance Providers Payer Name Payer Address Payer Phone Subscriber Number Group Number Insured Name Patient Relationship to Insured Coverage Start Date Coverage End Date [facility] [address] [place] [address] [phone] [id number] TYRONE CREWS Self - patient is the insured Medical (General) History Medical History History ICD Code Denies [place],DM,CVA,Lung disease,renal dise ase HTN Hyperlipidemia GERD Neg. screening colonoscopies in 1999 and 2009, except for a hyperplastic polyp GI bleed from PUD and aspirin--needed tr ansfusions Kidney stones Surgical History Surgery Date(Month/Year) Hernia disc C6-C7 1995
[2024-09-13 17:52] LABS: Alanine Aminotransferase 39 U/L (0-40); Albumin Level 4.4 g/dL (3.5-5.0); Alkaline Phosphatase 127 U/L (39-117); Anion Gap 12 (12-20); Aspartate Amino Transferase 55 U/L (5-37); Bilirubin Total 0.9 mg/dL (0.0-1.0); Blood Urea Nitrogen 10 mg/dL (9-16); Calcium 9.3 mg/dL (8.4-10.2); Carbon Dioxide 23 mmol/L (22-29); Chloride 110 mmol/L (96-108); Cholesterol 158 mg/dL (<200); Estimated Glomerular Filt Rate > 60; Glucose Fasting 105 mg/dL (60-99); HDL Cholesterol 44 mg/dL (>40); LDL Cholesterol Calculated 70 mg/dL (<100); Sodium 141 mmol/L (135-145); Total Protein 7.1 g/dL (6.5-8.0); Triglycerides 223 mg/dL (<150)
[2024-09-13 18:19] LABS: Appearance Urine Clear; Color Urine Yellow; Glucose Urine UA Negative (Negative); Leukocyte Esterase Urine Negative (Negative); Nitrite Urine Negative (Negative); PH 6.5 (5.0-9.0); Urine Blood Negative (Negative); Urine Ketones Negative (Negative); Urine Protein Negative (Neg-Trace)
[2024-09-13 18:43] LABS: Creatinine Urine 35.57 mg/dL; Microalbumin Urine < 5.0 mg/L
== END 2024-09-13 16:53 | disposition home or self-care (01) ==
LOC: HO.LAB 16:52
PROVIDERS: PCP Internal Medicine; Visit Provider Internal Medicine
DX: E11.9 Type 2 diabetes mellitus without complications (principal); E78.00 Pure hypercholesterolemia, unspecified; R30.0 Dysuria; D64.9 Anemia, unspecified
CPT/HCPCS: 36415; 80053; 80061; 81003; 82570; 83036; 84443; 85025

== ENCOUNTER 2024-09-22 14:33 | Outpatient (AMB) | payer MEDICARE, SELFPAY ==
[2024-09-22 14:41] VITALS: BP 110/78; PULSE 64; O2SAT 96; BMI 25.0
--- NOTE | 2024-09-22 14:41 | MHC.PC.OV ---
Vital Signs 09/22/24 14:41 Height 5 ft 5 in Weight 150 lb BMI 25.0 BP 110/78 Blood Pressure Location Lt brachial Position Sitting Pulse 64 Pulse Source Pulse Oximeter Pulse Oximetry (%) 96 Oxygen Delivery Method Room Air Intake Visit Reasons: hyperlipidemia, DM, HTN - see comments Canopy Inspector Required: No Accompanied by: Self / Same As Patient Allergies prochlorperazine (From Compazine) Allergy (Intermediate, Verified 09/22/24 14:55) loss of control of tongue muscle (tongue twisted) Medication List - Last Reconciled 09/22/24 by Jordy Cabral MD atenolol 25 mg PO DAILY atorvastatin 20 mg PO DAILY 90 days blood sugar diagnostic (Accu-Chek Guide test strips) As directed once a day blood-glucose meter As directed cholecalciferol (vitamin D3) 1,250 mcg PO QWEEK famotidine 40 mg (2 x 20 mg) PO BID fenofibrate 160 mg PO DAILY hydroxyzine HCl 10 mg PO BEDTIME PRN 90 days lancets (Accu-Chek Softclix Lancets) As directed once a day omega-3 fatty acids-fish oil 360-1,200 mg (Fish Oil) 1 cap PO BID pyridoxine (vitamin B6) 50 mg PO DAILY 90 days tramadol 50 mg PO TID PRN Tobacco use date assessed: 09/22/24 Fall risk assessment: No Falls in past year Last assessed Fall Risk: 09/22/24 Dental Screening Dental Screen Date: 09/22/24 Did you have a dental visit in the last 12 months?: Yes Did you have a dental problem in the last 6 months where you did not have access to dental care?: No Was dental information given to patient?: Patient has dentist HPI hyperlipidemia, DM, HTN - see comments HPI Details Patient comes in today for his follow up visit States that he feels okay He denies any headaches or dizziness Denies any chest pains, no shortness of breath No nausea/vomiting, no abdominal pain No change in bowel habits noted Needs his Hydroxyzine Rx refilled today He had his follow-up labs done last week - to discuss his results [facility] Medical History Overweight (BMI 25.0-29.9) Diabetes mellitus COVID-19 vaccine series completed Recurrent cold sores Renal insufficiency 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 Sister No problems noted. Son No problems noted. Social History Housing: House Alcohol intake: current Alcohol intake frequency: holidays/special occasions only Patient Tobacco Use Status: Former Tobacco user e-Cigarette/Vaping Use: Never Used Second Hand Smoke Exposure: Yes service: No Current occupational status: retired Current occupation: Right hand dominate Cognitive needs: No Hearing needs: No Vision needs: Yes Questionnaire PHQ-9 Over the last 2 weeks, how often have you been bothered by any of the following problems? 1. Little interest or pleasure in doing things: not at all 2. Feeling down, depressed, or hopeless: not at all 3. Trouble falling or staying asleep, or sleeping too much: not at all 4. Feeling tired or having little energy: not at all 5. Poor appetite or overeating: not at all 6. Feeling bad about yourself - or that you are a failure or have let yourself or your family down: not at all 7. Trouble concentrating on things, such as reading the newspaper or watching television: not at all 8. Moving or speaking so slowly that other people could have noticed. Or the opposite - being so fidgety or restless that you have been moving around a lot more than usual: not at all 9. Thoughts that you would be better off or of hurting yourself in some way: not at all Total score: 0 Depression Screening Interpretation: Negative Depression Screening Done: Yes 36314 - PHQ-9 Billing: Yes Source: Developed by Drs. Jayden Russ, Clara Mcgee, Prabhakar Glover and colleagues, with an educational kirk from [employer]. Thrive Questionnaire Date Thrive assessed: 09/22/24 I am a: Patient What is your living situation today?: I have a steady place to live Within the past 12 months, did the food you bought not last and you didn't have the money to get more?: Never true Within the past 12 months, did you worry whether your food would run out before you got money to buy more?: Never true Do you have trouble paying for medicines?: No Do you have trouble getting transportation to medical appointments?: No Do you have trouble paying your heating and electricity bill?: No Do you have trouble taking care of your child, family member or friend?: No Do you have trouble with day-to-day activities such as bathing, preparing meals, shopping, managing finances, etc.?: No Are you currently unemployed and looking for a job?: No Are you interested in more education?: No Please select the resources that you would like help with: None Currently or been in a relationship where the following occur: No concerns reported THRIVE Score: 0 AUDIT C Alcohol Use Questionnaire (AUDIT-C) 1. How often do you have a drink containing alcohol?: Monthly or less 2. How many drinks containing alcohol do you have on a typical day when you are drinking?: 1 or 2 3. How often do you have six or more drinks on one occasion?: Never Total Score: 1 Score Reviewed/Action Taken: Yes AUSTIN-7 AMB Questionnaire AUSTIN-7 Date AUSTIN - 7 assessed: 09/22/24 Feeling nervous, anxious, or on edge: 0 = Not at all Not being able to stop or control worryin = Not at all Worrying too much about different things: 0 = Not at all Trouble relaxin = Not at all Being so restless that it is hard to sit still: 0 = Not at all Becoming easily annoyed or irritable: 0 = Not at all Feeling afraid as if something awful might happen: 0 = Not at all Total AUSTIN-7 score (0-4 normal; 5-9 mild; 10-14 moderate; 15-21 severe): 0 Source: Developed by Drs. Jayden Russ, Clara Mcgee, Prabhakar Glover and colleagues, with an educational kirk from [employer]. Review of Systems Const Denies chills, Denies fatigue, Denies fever(s) and Denies headache(s) ENT Denies dysphagia, Denies dizziness, Denies otalgia, Denies headache(s), Reports neck pain, Denies odynophagia and Denies sore throat Card Denies chest pain, Denies irregular heart rhythm, Denies palpitations and Denies dyspnea Resp Denies chest congestion, Denies cough and Denies dyspnea GI Denies abdominal pain, Denies constipation, Denies dysphagia, Denies heartburn, Denies diarrhea, Denies nausea, Denies odynophagia and Denies vomiting Denies difficulty urinating, Denies dysuria and Denies urinary frequency Musc Denies back pain, Reports arthralgias (both shoulders, worse on the left side) and Reports neck pain Skin/Breast Denies rash Neuro Denies dizziness, Denies headache(s) and Denies paresthesias Endo Denies fatigue and Denies palpitations Physical exam (Primary Care) Vital Signs: Last Vital Signs Pulse 64 09/22/24 14:41 BP 110/78 09/22/24 14:41 Pulse Ox 96 09/22/24 14:41 Oxygen Delivery Method Room Air 09/22/24 14:41 BMI result Body Mass Index 25.0 Tobacco/Smoking Status: Tobacco use Status Tobacco use date assessed 09/22/24 09/22/24 14:47 Patient Tobacco Use Status Former Tobacco user 09/22/24 14:47 e-Cigarette/Vaping Use Never Used 09/22/24 14:47 PHQ-9: PHQ-9 Score PHQ-9: Total score 0 09/22/24 14:47 Depression Screening Interpretation: Negative Thrive Assessment: Date of Thrive Assessment Date Thrive assessed 09/22/24 09/22/24 14:47 Currently or been in a relationship where the following occur: No concerns reported Const General: no acute distress and alert HENMT Ears: TM's normal bilaterally and EAC's normal Throat: Yes posterior oropharynx normal and Yes tonsils normal (no TP congestion) Neck Neck: No lymphadenopathy Thyroid: Thyroid normal Resp Auscultation: clear to auscultation bilaterally, no rales and no wheezes Cardio Rate: regular rate Rhythm: regular rhythm Heart sounds: no murmurs GI Palpation (GI): Soft to palpation and nontender Auscultation: normal bowel sounds General: Yes no CVA tenderness Back/Spine/Pelvis Back: no CVA tenderness Cervical Spine: Cervical spine tenderness (mild) Thoracic/Lumbar Spine: thoracic and lumbar spine normal to inspection Skin Rashes: no rashes Extrem General: Yes no clubbing, cyanosis or edema Left upper extremity: shoulder/upper arm (increased) Details: tenderness; no swelling Results Reviewed Results Reviewed: Laboratory Tests 09/13/24 09/13/24 16:56 17:00 WBC 6.6 Hgb 15.3 Hct 45.4 Plt Count 271 Sodium 141 Potassium 4.0 Creatinine 0.90 Estimated GFR > 60 Fasting Glucose 105 H Hemoglobin A1c % 6.2 H Calcium 9.3 AST 55 H ALT 39 Triglycerides 223 H Cholesterol 158 LDL Cholesterol, Calc 70 HDL Cholesterol 44 TSH 2.30 Ur Specific [place] 1.010 Urine Protein Negative Urine Glucose (UA) Negative Urine Blood Negative Urine Nitrite Negative Ur Leukocyte Esterase Negative Coding Level of Care Code Est Pt Level 4 (44553) Complex EM visit Add On G2211 Diagnoses Mixed hyperlipidemia E78.2 Benign essential hypertension I10 Type 2 diabetes mellitus with hyperglycemia, without long-term current use of insulin E11.65 Diabetes mellitus type: type 2 Diabetes mellitus group home insulin use: without group home use Diabetes mellitus complication status: with hyperglycemia GERD without esophagitis K21.9 Generalized pruritus L29.9 Elevated LFTs R79.89 Vitamin D deficiency E55.9 Osteoarthritis of cervical spine, unspecified spinal osteoarthritis complication status M47.812 Spinal osteoarthritis complication: unspecified spinal osteoarthritis Primary osteoarthritis of right shoulder M19.011 Rotator cuff tear arthropathy of left shoulder M75.102; M12.812 Overweight (BMI 25.0-29.9) E66.3 Additional Codes PHQ-9 - 47313 - PHQ-9 Billing: Yes ([id number]) Assessment & Plan Assessment & Plan (1) Mixed hyperlipidemia: Code(s): E78.2 - Mixed hyperlipidemia Category: Medical Plan: Results of his labs done last week reviewed and discussed with patient - his total and LDL cholesterol have both improved but his serum TG went up from before Reinforced low cholesterol diet Continue Fenofibrate 160 mg QD and Atorvastatin 20 mg QD Will recheck his labs and fasting lipids in 4 months for follow up (2) Benign essential hypertension: Code(s): I10 - Essential (primary) hypertension Category: Social Hx Plan: Reinforced low sodium diet - goal is systolic BP of at least 130 to 140 mm or less Continue Atenolol 25 mg QD (3) Diabetes mellitus: Code(s): E11.9 - Type 2 diabetes mellitus without complications Category: Medical Qualifiers: Diabetes mellitus type: type 2 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 insulin 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: without group home use Diabetes mellitus complication status: with hyperglycemia Qualified Code(s): E11.65 - Type 2 diabetes mellitus with hyperglycemia Plan: His HgbA1c was at 6.2% on his labs done last week; it was previously at 6.1% a few months ago - goal is <6.5% Reinforced diabetic diet Continue Metformin ER 500 mg Q PM (4) GERD without esophagitis: Code(s): K21.9 - Gastro-esophageal reflux disease without esophagitis Category: Medical Plan: Dietary restrictions reinforced Continue Famotidine 20 mg BID PRN (5) Generalized pruritus: Code(s): L29.9 - Pruritus, unspecified Category: Medical Plan: Continue Hydroxyzine 10 mg Q HS PRN and Clotrimazole 1% cream apply to affected areas BID PRN (6) Elevated LFTs: Code(s): R79.89 - Other specified abnormal findings of blood chemistry Category: Medical Plan: His serum AST has again increased slightly on his recent labs but his ALT is normal Abdominal US done in September 2023 revealed (+) moderately increased hepatic echogenicity which can be seen in the setting of hepatic steatosis or underlying liver disease We will continue to monitor his LFTs regularly (7) Vitamin D deficiency: Code(s): E55.9 - Vitamin D deficiency, unspecified Category: Medical Plan: Continue Vitamin D2 74013 units once a week (8) Osteoarthritis of cervical spine: Code(s): M47.812 - Spondylosis without myelopathy or radiculopathy, cervical region Category: Medical Qualifiers: Spinal osteoarthritis complication: unspecified spinal osteoarthritis Qualified Code(s): M47.812 - Spondylosis without myelopathy or radiculopathy, cervical region Plan: Continue Tizanidine 4 mg TID PRN (9) Primary osteoarthritis of right shoulder: Comment: Most recent x-rays done in 2017 revealed (+)mild acromioclavicular and minimal glenohumeral degenerative arthritis Code(s): M19.011 - Primary osteoarthritis, right shoulder Category: Medical Plan: Patient states that his shoulder symptoms have improved a lot with cortisone injections and physical therapy when needed in the past Continue Tramadol 50 mg TID PRN Follow-up with orthopedics as scheduled (10) Rotator cuff tear arthropathy of left shoulder: Code(s): M75.102 - Unspecified rotator cuff tear or rupture of left shoulder, not specified as traumatic; M12.812 - Other specific arthropathies, not elsewhere classified, left shoulder Category: Medical Plan: MRI of the shoulder done in June 2023 revealed (+) moderate size full-thickness insertional tear of the supraspinatus tendon, scattered small areas of partial tearing of the infraspinatus tendon and its musculotendinous junction without any measurable defect and [id number] hypertrophic osteoarthritis of the acromioclavicular joint Follow up with orthopedics as scheduled (11) Overweight (BMI 25.0-29.9): Code(s): E66.3 - Overweight Category: Medical Plan: Reinforced diet/exercise as tolerated/lose weight Plan Follow up in 4 months Orders: Orders Complete Blood Count Auto Diff 4 Months D64.9 - Anemia, unspecified TSH reflex Free T4 4 Months E78.00 - Pure hypercholesterolemia, unspecified UA CC w/rflx Micro + Cult 4 Months R30.0 - Dysuria Vitamin D 25-OH Total 4 Months E55.9 - Vitamin D deficiency, unspecified Hemoglobin A1c 4 Months E11.65 - Type 2 diabetes mellitus with hyperglycemia Comprehensive [place]. Panel Fast 4 Months E78.00 - Pure hypercholesterolemia, unspecified Lipid Panel 4 Months E78.00 - Pure hypercholesterolemia, unspecified Medications: Refilled hydroxyzine HCl 10 mg PO BEDTIME PRN 90 tabs 3RF itching and/or anxiety 90 days L29.9 - Pruritus, unspecified
--- OUTSIDE RECORDS SUMMARY | 2024-09-22 15:03 | XMS_ITS | Patient Health Record ---
Author Organization [facility] Address [address] [place] [phone] Care Team Providers Care Pmo Manager Name Role Phone Misha LARSON, Jordy Primary Care Provider Jayden Godfrey [phone] Allergies Allergen (clinical drug ingredient) Drug/Non Drug [...] Problem Status W/U Status Risk Notes Problem [id number] Encounter for screening for malignant neoplasm of colon (Z12.11) Active confirmed Problem [id number] Preprocedural examination (Z01.818) Active confirmed Problem Diverticulosis of sigmoid colon (423957692) Diverticulosis of sigmoid colon (K57.30) Active confirmed Plan Of Treatment Future Test Test Name Order Date COLONOSCOPY 07/11/2020 Insurance Providers Payer Name Payer Address Payer Phone Subscriber Number Group Number Insured Name Patient Relationship to Insured Coverage Start Date Coverage End Date [facility] [address] [place] [address] [id number] TYRONE CREWS Self - patient is the insured Medical (General) History Medical History History ICD Code Denies [place],DM,CVA,Lung disease,renal dise ase HTN Hyperlipidemia GERD Neg. screening colonoscopies in 1999 and 2009, except for a hyperplastic polyp GI bleed from PUD and aspirin--needed tr ansfusions Kidney stones Surgical History Surgery Date(Month/Year) Hernia disc C6-C7 1995
== END 2024-09-22 15:11 | disposition home or self-care (01) ==
LOC: HO.HMCH 14:34
PROVIDERS: PCP Internal Medicine; Visit Provider Internal Medicine
DX: E78.2 Mixed hyperlipidemia (principal); I10 Essential (primary) hypertension; E11.65 Type 2 diabetes mellitus with hyperglycemia; K21.9 Gastro-esophageal reflux disease without esophagitis; L29.9 Pruritus, unspecified; R79.89 Other specified abnormal findings of blood chemistry; E55.9 Vitamin D deficiency, unspecified; M47.812 Spondylosis without myelopathy or radiculopathy, cervical region; M19.011 Primary osteoarthritis, right shoulder; M75.102 Unspecified rotator cuff tear or rupture of left shoulder, not specified as traumatic; M12.812 Other specific arthropathies, not elsewhere classified, left shoulder; E66.3 Overweight

== ENCOUNTER → 2024-09-22 14:33 | Outpatient (BNVA) | payer MEDICARE, SELFPAY | PROVIDERS: PCP Internal Medicine; Visit Provider Internal Medicine | DX: E78.2 Mixed hyperlipidemia (principal); I10 Essential (primary) hypertension; E11.65 Type 2 diabetes mellitus with hyperglycemia; K21.9 Gastro-esophageal reflux disease without esophagitis; L29.9 Pruritus, unspecified; R79.89 Other specified abnormal findings of blood chemistry; E55.9 Vitamin D deficiency, unspecified; M47.812 Spondylosis without myelopathy or radiculopathy, cervical region; M75.102 Unspecified rotator cuff tear or rupture of left shoulder, not specified as traumatic; M12.812 Other specific arthropathies, not elsewhere classified, left shoulder; E66.3 Overweight; Z68.25 Body mass index [BMI] 25.0-25.9, adult; Z71.3 Dietary counseling and surveillance | CPT/HCPCS: 96127; 99212 ==

== ENCOUNTER 2025-01-21 09:12 | Outpatient (REF) | payer MEDICARE, SELFPAY ==
[2025-01-21 09:35] LABS: MANUAL DIFF FLAG NO
[2025-01-21 10:02] LABS: Hematocrit 45.7 % (42.0-52.0); Hemoglobin 15.1 g/dl (14.0-18.0); Imm Gran Abs Auto 0.02 X10*3/uL (0.00-0.03); Imm Gran Pct Auto 0.3 % (0.0-0.4); Lymphocytes Absolute Auto 2.2 X10*3/uL (1.2-4.9); Mean Corpuscular HGB Conc 33.0 g/dl (31.0-36.0); Mean Corpuscular Hemoglobin 29.0 pg (27.0-33.0); Mean Corpuscular Volume 87.9 fL (80.0-98.0); NRBC Abs Auto 0.000 X10*3/uL (0.0-0.012); NRBC Pct Auto 0.0 /100WBC (0.0-0.2); Platelet Count 252 X10*3/uL (160-400); Red Blood Count 5.20 X10*6/uL (4.60-5.80); White Blood Count 7.9 X10*3/uL (4.8-10.8)
--- OUTSIDE RECORDS SUMMARY | 2025-01-21 10:07 | XMS_ITS | Patient Health Record ---
Author Organization [facility] Address [address] [place] [phone] Care Team Providers Care French Pastry Cook Name Role Phone Misha LARSON, Jordy Primary Care Provider Jayden Godfrey [phone] Allergies Allergen (clinical drug ingredient) Drug/Non Drug [...] Problem Status W/U Status Risk Notes Problem Screening for malignant neoplasm of colon (116574233) Encounter for screening for malignant neoplasm of colon (Z12.11) Active confirmed Problem Preprocedural examination ([id number]) Preprocedural examination (Z01.818) Active confirmed Problem Diverticulosis of sigmoid colon (684175051) Diverticulosis of sigmoid colon (K57.30) Active confirmed Plan Of Treatment Future Test Test Name Order Date COLONOSCOPY 07/11/2020 Insurance Providers Payer Name Payer Address Payer Phone Subscriber Number Group Number Insured Name Patient Relationship to Insured Coverage Start Date Coverage End Date [facility] [address] [place] [address] [id number] TYRONE CREWS Self - patient is the insured Medical (General) History Medical History History ICD Code Denies [place],DM,CVA,Lung disease,renal dise ase HTN Hyperlipidemia GERD Neg. screening colonoscopies in 1999 and 2009, except for a hyperplastic polyp GI bleed from PUD and aspirin--needed tr ansfusions Kidney stones Surgical History Surgery Date(Month/Year) Hernia disc C6-C7 1995
[2025-01-21 10:22] LABS: Appearance Urine Clear; Glucose Urine UA Negative (Negative); PH 5.5 (5.0-9.0); Specific Gravity - Urine 1.015 (1.005-1.025)
[2025-01-21 11:01] LABS: Alanine Aminotransferase 49 U/L (0-40); Albumin Level 4.4 g/dL (3.5-5.0); Alkaline Phosphatase 126 U/L (39-117); Anion Gap 11 (12-20); Aspartate Amino Transferase 58 U/L (5-37); Blood Urea Nitrogen 12 mg/dL (9-16); Calcium 9.7 mg/dL (8.4-10.2); Carbon Dioxide 28 mmol/L (22-29); Chloride 107 mmol/L (96-108); Cholesterol 182 mg/dL (<200); Estimated Glomerular Filt Rate > 60; HDL Cholesterol 53 mg/dL (>40); Potassium 4.0 mmol/L (3.3-5.1); Sodium 142 mmol/L (135-145); Total Protein 7.3 g/dL (6.5-8.0); Triglycerides 84 mg/dL (<150)
== END 2025-01-21 09:13 | disposition home or self-care (01) ==
LOC: HO.LAB 09:12
PROVIDERS: PCP Internal Medicine; Visit Provider Internal Medicine
DX: E11.65 Type 2 diabetes mellitus with hyperglycemia (principal); E78.00 Pure hypercholesterolemia, unspecified; E55.9 Vitamin D deficiency, unspecified; D64.9 Anemia, unspecified; R30.0 Dysuria
CPT/HCPCS: 36415; 80053; 80061; 81003; 82306; 83036; 84443; 85025

== ENCOUNTER 2025-01-24 14:28 | Outpatient (AMB) | payer MEDICARE, SELFPAY ==
[2025-01-24 14:29] VITALS: BP 110/74; PULSE 62; O2SAT 98; BMI 24.3
--- NOTE | 2025-01-24 14:29 | A.OFFPC_ITS ---
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 Required: No Accompanied by: Self / Same As Patient Allergies prochlorperazine (From Compazine) Allergy (Intermediate, Verified 01/24/25 15:11) loss of control of tongue muscle (tongue twisted) Medication List - Last Reconciled 01/24/25 by Jordy Cabral MD atenolol 25 mg PO DAILY atorvastatin 20 mg PO DAILY 90 days blood sugar diagnostic (Accu-Chek Guide test strips) As directed once a day blood-glucose meter As directed cholecalciferol (vitamin D3) 1,250 mcg PO QWEEK famotidine 40 mg (2 x 20 mg) PO BID fenofibrate 160 mg PO DAILY hydroxyzine HCl 10 mg PO BEDTIME PRN 90 days lancets (Accu-Chek Softclix Lancets) As directed once a day omega-3 fatty acids-fish oil 360-1,200 mg (Fish Oil) 1 cap PO BID pyridoxine (vitamin B6) 50 mg PO DAILY 90 days tramadol 50 mg PO TID PRN Tobacco use date assessed: 01/24/25 Fall risk assessment: No Falls in past year Last assessed Fall Risk: 01/24/25 Dental Screening Dental Screen Date: 01/24/25 Did you have a dental visit in the last 12 months?: Yes Did you have a dental problem in the last 6 months where you did not have access to dental care?: No Was dental information given to patient?: Patient has dentist HPI hyperlipidemia, HTN, IFG, OA, asthma HPI Details Patient comes in today for his follow up visit States that he feels okay He denies any headaches or dizziness Denies any chest pains, no shortness of breath No nausea/vomiting, no abdominal pain No change in bowel habits noted He had his follow-up labs done a few days ago - to discuss his results [facility] Medical History Overweight (BMI 25.0-29.9) Diabetes mellitus COVID-19 vaccine series completed Recurrent cold sores Renal insufficiency 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 Sister No problems noted. Son No problems noted. Social History Housing: House Alcohol intake: current Alcohol intake frequency: holidays/special occasions only Patient Tobacco Use Status: Former Tobacco user e-Cigarette/Vaping Use: Never Used Second Hand Smoke Exposure: Yes service: No Current occupational status: retired Current occupation: Right hand dominate Cognitive needs: No Hearing needs: No Vision needs: Yes Questionnaire PHQ-9 Over the last 2 weeks, how often have you been bothered by any of the following problems? 1. Little interest or pleasure in doing things: not at all 2. Feeling down, depressed, or hopeless: not at all 3. Trouble falling or staying asleep, or sleeping too much: not at all 4. Feeling tired or having little energy: not at all 5. Poor appetite or overeating: not at all 6. Feeling bad about yourself - or that you are a failure or have let yourself or your family down: not at all 7. Trouble concentrating on things, such as reading the newspaper or watching television: not at all 8. Moving or speaking so slowly that other people could have noticed. Or the opposite - being so fidgety or restless that you have been moving around a lot more than usual: not at all 9. Thoughts that you would be better off or of hurting yourself in some way: not at all Total score: 0 Depression Screening Interpretation: Negative Depression Screening Done: Yes 52779 - PHQ-9 Billing: Yes Source: Developed by Drs. Jayden Russ, Clara Mcgee, Prabhakar Glover and colleagues, with an educational kirk from [employer]. Thrive Questionnaire Date Thrive assessed: 01/24/25 I am a: Patient What is your living situation today?: I have a steady place to live Within the past 12 months, did the food you bought not last and you didn't have the money to get more?: Never true Within the past 12 months, did you worry whether your food would run out before you got money to buy more?: Never true Do you have trouble paying for medicines?: No Do you have trouble getting transportation to medical appointments?: No Do you have trouble paying your heating and electricity bill?: No Do you have trouble taking care of your child, family member or friend?: No Do you have trouble with day-to-day activities such as bathing, preparing meals, shopping, managing finances, etc.?: No Are you currently unemployed and looking for a job?: No Are you interested in more education?: No Please select the resources that you would like help with: None Currently or been in a relationship where the following occur: No concerns reported THRIVE Score: 0 AUDIT C Alcohol Use Questionnaire (AUDIT-C) 1. How often do you have a drink containing alcohol?: Monthly or less 2. How many drinks containing alcohol do you have on a typical day when you are drinking?: 1 or 2 3. How often do you have six or more drinks on one occasion?: Never Total Score: 1 Score Reviewed/Action Taken: Yes AUSTIN-7 AMB Questionnaire AUSTIN-7 Date AUSTIN - 7 assessed: 01/24/25 Feeling nervous, anxious, or on edge: 0 = Not at all Not being able to stop or control worryin = Not at all Worrying too much about different things: 0 = Not at all Trouble relaxin = Not at all Being so restless that it is hard to sit still: 0 = Not at all Becoming easily annoyed or irritable: 0 = Not at all Feeling afraid as if something awful might happen: 0 = Not at all Total AUSTIN-7 score (0-4 normal; 5-9 mild; 10-14 moderate; 15-21 severe): 0 Source: Developed by Drs. Jayden Russ, Clara Mcgee, Prabhakar Glover and colleagues, with an educational kirk from [employer]. Review of Systems Const Denies chills, Denies fatigue, Denies fever(s) and Denies headache(s) ENT Denies dysphagia, Denies dizziness, Denies otalgia, Denies headache(s), Reports neck pain, Denies odynophagia and Denies sore throat Card Denies chest pain, Denies irregular heart rhythm, Denies palpitations and Denies dyspnea Resp Denies chest congestion, Denies cough and Denies dyspnea GI Denies abdominal pain, Denies constipation, Denies dysphagia, Denies heartburn, Denies diarrhea, Denies nausea, Denies odynophagia and Denies vomiting Denies difficulty urinating, Denies dysuria and Denies urinary frequency Musc Denies back pain, Reports arthralgias (both shoulders, worse on the left side) and Reports neck pain Skin/Breast Denies rash Neuro Denies dizziness, Denies headache(s) and Denies paresthesias Endo Denies fatigue and Denies palpitations Physical exam (Primary Care) Vital Signs: Last Vital Signs Pulse 62 01/24/25 14:29 BP 110/74 01/24/25 14:29 Pulse Ox 98 01/24/25 14:29 Oxygen Delivery Method Room Air 01/24/25 14:29 BMI result Body Mass Index 24.3 Tobacco/Smoking Status: Tobacco use Status Tobacco use date assessed 01/24/25 01/24/25 14:36 Patient Tobacco Use Status Former Tobacco user 01/24/25 14:36 e-Cigarette/Vaping Use Never Used 01/24/25 14:36 PHQ-9: PHQ-9 Score PHQ-9: Total score 0 01/24/25 15:15 Depression Screening Interpretation: Negative Thrive Assessment: Date of Thrive Assessment Date Thrive assessed 01/24/25 01/24/25 14:36 Currently or been in a relationship where the following occur: No concerns reported Const General: no acute distress and alert HENMT Ears: TM's normal bilaterally and EAC's normal Throat: Yes posterior oropharynx normal and Yes tonsils normal (no TP congestion) Neck Neck: No lymphadenopathy Thyroid: Thyroid normal Resp Auscultation: clear to auscultation bilaterally, no rales and no wheezes Cardio Rate: regular rate Rhythm: regular rhythm Heart sounds: no murmurs GI Palpation (GI): Soft to palpation and nontender Auscultation: normal bowel sounds General: Yes no CVA tenderness Back/Spine/Pelvis Back: no CVA tenderness Cervical Spine: Cervical spine tenderness (mild) Thoracic/Lumbar Spine: thoracic and lumbar spine normal to inspection Skin Rashes: no rashes Extrem General: Yes no clubbing, cyanosis or edema Left upper extremity: shoulder/upper arm (increased) Details: tenderness; no swelling Results Reviewed Results Reviewed: y y Laboratory Tests 01/21/25 01/21/25 09:26 09:32 WBC 7.9 Hgb 15.1 Hct 45.7 Plt Count 252 Sodium 142 Potassium 4.0 Creatinine 0.99 Estimated GFR > 60 Fasting Glucose 106 H Hemoglobin A1c % 6.0 Calcium 9.7 AST 58 H ALT 49 H Alkaline Phosphatase 126 H Triglycerides 84 Cholesterol 182 LDL Cholesterol, Calc 113 H HDL Cholesterol 53 25-OH Vitamin D Total 37.8 TSH 3.01 Ur Specific [place] 1.015 Urine Protein Negative Urine Glucose (UA) Negative Urine Blood Negative Urine Nitrite Negative Ur Leukocyte Esterase Negative Coding Level of Care Code Est Pt Level 4 (27089) Complex EM visit Add On G2211 Diagnoses Mixed hyperlipidemia E78.2 Benign essential hypertension I10 Type 2 diabetes mellitus with hyperglycemia, without long-term current use of insulin E11.65 Diabetes mellitus complication status: with hyperglycemia 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 insulin use: without 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 school teacher use Diabetes mellitus type: type 2 GERD without esophagitis K21.9 Elevated LFTs R79.89 Generalized pruritus L29.9 Vitamin D deficiency E55.9 Osteoarthritis of cervical spine, unspecified spinal osteoarthritis complication status M47.812 Spinal osteoarthritis complication: unspecified spinal osteoarthritis Primary osteoarthritis of right shoulder M19.011 Rotator cuff tear arthropathy of left shoulder M75.102; M12.812 Additional Codes PHQ-9 - 17153 - PHQ-9 Billing: Yes ([id number]) Assessment & Plan Assessment & Plan (1) Mixed hyperlipidemia: Code(s): E78.2 - Mixed hyperlipidemia Category: Medical Plan: Results of his labs done a few days ago reviewed and discussed with patient - his total and LDL cholesterol have both increased from previous but his serum TG level improved significantly from before Reinforced low cholesterol diet Continue Fenofibrate 160 mg QD and Atorvastatin 20 mg QD Will recheck his labs and fasting lipids in 4 months for follow up (2) Benign essential hypertension: Code(s): I10 - Essential (primary) hypertension Category: Social Hx Plan: Reinforced low sodium diet - goal is systolic BP of at least 130 to 140 mm or less Continue Atenolol 25 mg QD (3) Diabetes mellitus: Code(s): E11.9 - Type 2 diabetes mellitus without complications Category: Medical Qualifiers: Diabetes mellitus complication status: with hyperglycemia 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 insulin use: without 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 school teacher use Diabetes mellitus type: type 2 Qualified Code(s): E11.65 - Type 2 diabetes mellitus with hyperglycemia Plan: His HgbA1c was at 6.0% on his labs done a few days ago; it was previously at 6.2% a few months ago - goal is <6.5% Reinforced diabetic diet Continue Metformin ER 500 mg Q PM (4) GERD without esophagitis: Code(s): K21.9 - Gastro-esophageal reflux disease without esophagitis Category: Medical Plan: Dietary restrictions reinforced Continue Famotidine 20 mg BID PRN (5) Elevated LFTs: Code(s): R79.89 - Other specified abnormal findings of blood chemistry Category: Medical Plan: Patient's LFTs remain elevated and have both increased slightly from previous Abdominal US done in September 2023 revealed (+) moderately increased hepatic echogenicity which can be seen in the setting of hepatic steatosis or underlying liver disease We will continue to monitor his LFTs regularly (6) Generalized pruritus: Code(s): L29.9 - Pruritus, unspecified Category: Medical Plan: Continue Hydroxyzine 10 mg Q HS PRN and Clotrimazole 1% cream apply to affected areas BID PRN (7) Vitamin D deficiency: Code(s): E55.9 - Vitamin D deficiency, unspecified Category: Medical Plan: Continue Vitamin D2 85360 units once a week (8) Osteoarthritis of cervical spine: Code(s): M47.812 - Spondylosis without myelopathy or radiculopathy, cervical region Category: Medical Qualifiers: Spinal osteoarthritis complication: unspecified spinal osteoarthritis Qualified Code(s): M47.812 - Spondylosis without myelopathy or radiculopathy, cervical region Plan: Continue Tizanidine 4 mg TID PRN (9) Primary osteoarthritis of right shoulder: Comment: Most recent x-rays done in 2017 revealed (+)mild acromioclavicular and minimal glenohumeral degenerative arthritis Code(s): M19.011 - Primary osteoarthritis, right shoulder Category: Medical Plan: Patient states that his shoulder symptoms have improved a lot with cortisone injections and physical therapy when needed in the past Continue Tramadol 50 mg TID PRN Follow-up with orthopedics as scheduled (10) Rotator cuff tear arthropathy of left shoulder: Code(s): M75.102 - Unspecified rotator cuff tear or rupture of left shoulder, not specified as traumatic; M12.812 - Other specific arthropathies, not elsewhere classified, left shoulder Category: Medical Plan: MRI of the shoulder done in June 2023 revealed (+) moderate size full-thickness insertional tear of the supraspinatus tendon, scattered small areas of partial tearing of the infraspinatus tendon and its musculotendinous junction without any measurable defect and [id number] hypertrophic osteoarthritis of the acromioclavicular joint Follow up with orthopedics as scheduled Plan Follow up in 4 months Orders: Orders Hepatitis A,B,C Profile 4 Months R79.89 - Other specified abnormal findings of blood chemistry Liver Fibrosis Pnl 4 Months R79.89 - Other specified abnormal findings of blood chemistry TSH reflex Free T4 4 Months E78.00 - Pure hypercholesterolemia, unspecified, R79.89 - Other specified abnormal findings of blood chemistry Vitamin B12 and Folate 4 Months E53.8 - Deficiency of other specified B group vitamins, R79.89 - Other specified abnormal findings of blood chemistry Vitamin D 25-OH Total 4 Months E55.9 - Vitamin D deficiency, unspecified, R79.89 - Other specified abnormal findings of blood chemistry Hemoglobin A1c 4 Months E11.65 - Type 2 diabetes mellitus with hyperglycemia Complete Blood Count Auto Diff 4 Months D64.9 - Anemia, unspecified, R79.89 - Other specified abnormal findings of blood chemistry Comprehensive [place]. Panel Fast 4 Months E78.00 - Pure hypercholesterolemia, unspecified, R79.89 - Other specified abnormal findings of blood chemistry Lipid Panel 4 Months E78.00 - Pure hypercholesterolemia, unspecified, R79.89 - Other specified abnormal findings of blood chemistry UA CC w/rflx Micro + Cult 4 Months R30.0 - Dysuria, R79.89 - Other specified abnormal findings of blood chemistry Microalbumin, Random (w Creat) 4 Months E11.9 - Type 2 diabetes mellitus without complications
== END 2025-01-24 15:25 | disposition home or self-care (01) ==
LOC: HO.HMCH 14:28
PROVIDERS: PCP Internal Medicine; Visit Provider Internal Medicine
DX: E78.2 Mixed hyperlipidemia (principal); I10 Essential (primary) hypertension; E11.65 Type 2 diabetes mellitus with hyperglycemia; K21.9 Gastro-esophageal reflux disease without esophagitis; R79.89 Other specified abnormal findings of blood chemistry; L29.9 Pruritus, unspecified; E55.9 Vitamin D deficiency, unspecified; M47.812 Spondylosis without myelopathy or radiculopathy, cervical region; M19.011 Primary osteoarthritis, right shoulder; M75.102 Unspecified rotator cuff tear or rupture of left shoulder, not specified as traumatic; M12.812 Other specific arthropathies, not elsewhere classified, left shoulder

== ENCOUNTER → 2025-01-24 14:28 | Outpatient (BNVA) | payer MEDICARE, SELFPAY | PROVIDERS: PCP Internal Medicine; Visit Provider Internal Medicine | DX: E78.2 Mixed hyperlipidemia (principal); I10 Essential (primary) hypertension; E11.65 Type 2 diabetes mellitus with hyperglycemia; E55.9 Vitamin D deficiency, unspecified; K21.9 Gastro-esophageal reflux disease without esophagitis; L29.9 Pruritus, unspecified; M47.812 Spondylosis without myelopathy or radiculopathy, cervical region; M19.011 Primary osteoarthritis, right shoulder; M75.102 Unspecified rotator cuff tear or rupture of left shoulder, not specified as traumatic; Z87.891 Personal history of nicotine dependence | CPT/HCPCS: 96127; 99212 ==